=== PATIENT | female | born 2005 | race Caucasian/White ===

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

== ENCOUNTER 2025-05-10 22:27 | Emergency (ER) | payer BC, MEDICAID, SELFPAY ==
--- OUTSIDE RECORDS SUMMARY | 2019-01-18 06:42 | XMS_ITS | Continuity of Care Document ---
Author Organization [facility] [place] Address [address] [place] [address] Phone Care Team Providers Care Satellite Installation Technician Name Role Phone Unavailable Unavailable Unavailable Advance Directives Directive Yes / No Effective Date File Name No Information Encounters Encounter Description Practice Location Reason(s) For Visit Diagnoses Date Provider Providers Copied on Encounter [facility] [address], [address], tel:[phone] [facility] No Information 0201 9 No Information Referring Provider: ISMA BURDEN L, [address] [place], [address]. tel:[phone] Family History Family Member Type Diagnosis Age At Onset Problem (finding) No family history of Hy pertension Problem (finding) No family history of Pr emature CAD Problem (finding) No family history of Ar rhythmia Problem (finding) No family history of Cage dden Problem (finding) No family hist ory of Cardiomyopathy - dilated Problem (finding) No family hist ory of Cardiomyopathy - hypertrophic Problem (finding) No family history of Di abetes Mellitus Problem (finding) No family hist ory of Congenital Heart Disease Cousin Problem (finding) Marfan's Father Problem (finding) Marfan's Payers Payer name Insurance type Covered constitution party ID Authoriza tion(s) [facility] [id number] Social History Type Description Quantity Date Captured [...]
[2025-05-10 22:30] VITALS: BP 103/71; PULSE 87; RESP 16; TEMP 36.7; O2SAT 98; BMI 26.2
--- OUTSIDE RECORDS SUMMARY | 2025-05-10 22:32 | XMS_ITS | Encounter Summary ---
Author Organization [facility] Address [address] [place] [address] Care Team Providers Care Family Lawyer Name Role Phone Cary Monzon DO Primary Care Provider Encounter Details Date Type Department Care Team (Latest Contact Info) Description 08/09/2006 Outpatient Historical [facility] [address] [place] [phone] Ovidio Tompkins MD NO ADDRESS ON FILE Routine Child Health Exam (Primary Dx) Social History Tobacco Use Types Packs/Day Years Used Date Smoking Tobacco: Never Assessed Comments Unknown Sex and Gender Information Value Date Recorded Sex Assigned at Not on file Legal Sex Female 3:37 AM CLOTH CALENDER Gender Identity Not on file Sexual Orientation Not on file documented as of this encounter Plan of Treatment Not on file documented as of this encounter Visit Diagnoses Diagnosis Routine child health exam- Primary Routine infant or child health check documented in this encounter Additional Health Concerns Infection Onset Date Last Indicated Resolved Time R/O COVID-19 05/26/2020 05/26/2020 05/28/2020 2:15 AM CDT R/O COVID-19 09/17/2020 09/17/2020 09/19/2020 3:30 AM CLOTH CALENDER documented as of this encounter Care Teams Family Lawyer Relationship Specialty Start Date End Date Cary Monzon DO [address] [place] [address] PCP - General Family Practice 10/28/11 documented as of this encounter
--- OUTSIDE RECORDS SUMMARY | 2025-05-10 22:32 | XMS_ITS | Encounter Summary ---
Author Organization [facility] Address [address] [place] [address] Care Team Providers Care Investigation Lieutenant Name Role Phone NaCary bautista Primary Care Provider [phone] Encounter Details Date Type Department Care Team (Late st Contact Info) Description 2005 Inpatient Historical [facility] B[facility] Ovidio Tompkins MD NO ADDRESS ON FILE FAILURE TO THRIVE (Primary Dx) Social History Tobacco Use Types Packs/Day Years Used Date Smoking Tobacco: Never Assessed Comments Unknown Sex and Gender Information Value Date Recorded Sex Assigned at Not on file Legal Sex Female 3:37 AM BILINGUAL ADMINISTRATIVE ASSISTANT Gender Identity Not on file Sexual Orientation Not on file documented as of this encounter Plan of Treatment Not on file documented as of this encounter Procedures Procedure Name Priority Date/Time Associated Diagnosis Comments DIFFERENTIAL, MANUAL Routine 2005 2:42 PM CDT URINALYSIS MICROSCOPY ONLY Routine 2005 2:42 PM CDT CBC WITH DIFFERENTIAL Routine 2005 2:42 PM CDT URINALYSIS W/REFLEX MICROSCOPIC Routine 2005 2:42 PM CDT AST Routine 2005 2:42 PM CDT TSH Routine 2005 2:42 PM CDT T4 FREE Routine 2005 2:42 PM CDT BASIC METABOLIC PANEL Routine 2005 2:42 PM CDT documented in this encounter Results * (ABNORMAL) URINALYSIS (2005 2:42 PM CDT) COLOR UA Yellow Straw INTERFACE SYSTEM CLARITY UA Clear Clear INTERFACE SYSTEM LEUKOCYTE ESTERASE UA NEGATIVE NEGATIVE INTERFACE SYSTEM NITRITE UA NEGATIVE NEGATIVE INTERFACE SYSTEM PH UA 7.0 5.0 - 9.0 INTERFACE SYSTEM PROTEIN UA NEGATIVE NEGATIVE INTERFACE SYSTEM GLUCOSE UA NEGATIVE NEGATIVE INTERFACE SYSTEM KETONES UA NEGATIVE NEGATIVE INTERFACE SYSTEM UROBILINOGEN UA 0.2 0.2 INTE RFACE SYSTEM BILIRUBIN UA NEGATIVE NEGATIVE INTERFA CE SYSTEM BLOOD UA Trace(A) NEGATIVE INTERFACE SYSTEM SPECIFIC GRAVITY UA <=1.005(A) 1.005 - 1.030 INTERFACE SYSTEM CLINITEST NEGATIVE INTERFACE SYSTEM MICRO EXAM Yes(A) No INTERFACE SYSTEM 2005 2:42 PM CDT us Ovidio Tompkins MD URINE ORDERABLES Final Resul t Performing Organization Address [facility] Phone Number INTERFACE SYSTEM Refer to clinic/hospital department * URINALYSIS MICROSCOPY ONLY (2005 2:42 PM CDT) WBC URINE None Seen 0 - 2 INTERFACE SYSTEM RBC UA None Seen 0 - 2 INTERFACE SYSTEM HYALINE CAST None Seen 0 - 2 INTERFA CE SYSTEM 2005 2:42 PM CDT us Ovidio Tompkins MD URINE ORDERABLES Final Resul t Performing Organization Address [facility] Phone Number INTERFACE SYSTEM Refer to clinic/hospital department * T4 FREE (2005 2:42 PM CDT) T4 FREE 1.40 0.89 - 1.76 ng/dL INTERFACE SYSTEM Comment: As of 05 at 3:00 p.m. [facility] has changed the methodology for Free T4, and with this change the reference range has changed from 0.71-1.85 to 0.89-1.76 ng/dl. 2005 2:42 PM CDT Ovidio Tompkins MD CHEMISTRY ORDERABLES Final R esult Performing Organization Address [facility] Phone Number INTERFACE SYSTEM Refer to clinic/hospital department * TSH (2005 2:42 PM CDT) TSH 2.751 0.350 - 5.500 uIU/ml INTERFACE SYSTEM Comment: [facility] TSH, and with this change the reference range has changed from 0.49-4.67 to 0.35-5.5 uIU/ml. 2005 2:42 PM CDT Ovidio Tompkins MD CHEMISTRY ORDERABLES Final R esult Performing Organization Address [facility] Phone Number INTERFACE SYSTEM Refer to clinic/hospital department * (ABNORMAL) DIFFERENTIAL, MANUAL (2005 2:42 PM CDT) NEUTROPHILS, SEG 28 15 - 35 % INT ERFACE SYSTEM LYMPHOCYTES 55 41 - 71 % INTERFAC E SYSTEM Comment:FEW REACTIVE MONOCYTE 13(H) 5 - 7 % INTERFACE SYSTEM EOSINOPHILS 3 0 - 3 % INTERFAC E SYSTEM BASOPHILS 1 0 - 1 % INTERFACE SYSTEM PLATELET EST. Normal Normal INTERF JAYLON SYSTEM RBC MORPHOLOGY Abnormal(A ) Normal INTERFACE SYSTEM POIKILOCYTES 1+(A) None Seen INTERFA CE SYSTEM SMUDGE CELLS Present(A) None Seen INTERF JAYLON SYSTEM 2005 2:42 PM CDT Ovidio Tompkins MD HEMATOLOGY ORDERABLES COM Fi nal Result Performing Organization Address [facility] Phone Number INTERFACE SYSTEM Refer to clinic/hospital department * (ABNORMAL) CBC WITH DIFFERENTIAL (2005 2:42 PM CDT) WBC 18.0 5.0 - 21.0 K/ul INTERFACE SYSTEM RBC 4.83 2.70 - 5.40 Mil/ul INTERFACE SYSTEM HEMOGLOBIN 15.5(H) 10.9 - 14.7 g/dL INTERFACE SYSTEM HEMATOCRIT 42.9 36.0 - 48.0 % INTERFACE SYSTEM MCV 88.8(L) 91.0 - 111.0 Fl INTERFACE SYSTEM MCH 32.1 29.0 - 35.0 pg INTERFACE SYSTEM MCHC 36.1(H) 28.0 - 32.0 g/dL INTERFACE SYSTEM RDW 13.7 11.0 - 14.5 % INTERFACE SYSTEM PLATELETS 439 140 - 440 K/ul INTERFACE SYSTEM MPV 10.1 8.9 - 12.8 Fl INTERFACE SYSTEM 2005 2:42 PM CDT us Ovidio Tompkins MD HEMATOLOGY ORDERABLES Final Result Performing Organization Address [facility] Phone Number INTERFACE SYSTEM Refer to clinic/hospital department * (ABNORMAL) AST (2005 2:42 PM CDT) AST 46(H) 14 - 36 IU/L INTERFACE SYSTEM 2005 2:42 PM CDT us Ovidio Tompkins MD CHEMISTRY ORDERABLES Final R esult Performing Organization Address [facility] Phone Number INTERFACE SYSTEM Refer to clinic/hospital department * (ABNORMAL) BASIC METABOLIC PANEL (2005 2:42 PM CDT) GLUCOSE 107(H) 60 - 100 mg/dL INTERFACE SYSTEM BUN 8 7 - 17 mg/dL INTERFACE SYSTEM CREATININE 0.4 0.2 - 0.7 mg/dL INTERFACE SYSTEM SODIUM 138 136 - 145 mEq/L INTERFACE SYSTEM POTASSIUM 4.5 3.5 - 5.0 mEq/L INTERFACE SYSTEM CHLORIDE 106 95 - 110 mEq/L INTERFACE SYSTEM CO2 21(L) 22 - 32 mmol/l INTERFACE SYSTEM ANION GAP 16 9 - 20 mEq/L INTERFACE SYSTEM OSMOLALITY, CALCULATED 284 275 - 295 mOsm/Kg INTERFACE SYSTEM CALCIUM 9.9 8.4 - 10.5 mg/dL INTERFACE SYSTEM 2005 2:42 PM CDT us Ovidio Tompkins MD CHEMISTRY ORDERABLES Final R esult INTERFACE SYSTEM Refer to clinic/hospital department documented in this encounter Visit Diagnoses Diagnosis 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
--- OUTSIDE RECORDS SUMMARY | 2025-05-10 22:32 | XMS_ITS | Encounter Summary ---
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 This result has a conductivity equivalent to that of a NaCl solution. The Cystic Fibrosis Foundation recommends that a patient having a sweat conductivity of 50 mmol/L or greater be referred to a specialized care center for quantitative analysis of sweat chloride. Factors such as age, acute illness, state of hydration, and family history of CF must be assessed carefully by the clinician for results between 50 and 80 mmol/L. 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
--- OUTSIDE RECORDS SUMMARY | 2025-05-10 22:32 | XMS_ITS | Encounter Summary ---
Author Organization [facility] Address [address] [place] [address] Care Team Providers Care Heating Technician Name Role Phone Cary Monzon DO Primary Care Provider [phone] Encounter Details Date Type Department Care Team (Latest Contact Info) Description 2005 Outpatient Historical [facility] [address] [place] [address] Wm Barrett MD [address] [place] [phone] ESOPHAGEAL REFLUX (Primary Dx) Social History Tobacco Use Types Packs/Day Years Used Date Smoking Tobacco: Never Assessed Comments Unknown Sex and Gender Information Value Date Recorded Sex Assigned at Not on file Legal Sex Female 3:37 AM BEHAVIORAL SCIENCES DEPARTMENT CHAIR Gender Identity Not on file Sexual Orientation Not on file documented as of this encounter Plan of Treatment Not on file documented as of this encounter Visit Diagnoses Diagnosis Esophageal reflux- Primary documented in this encounter Additional Health Concerns Infection Onset Date Last Indicated Resolved Time R/O COVID-19 05/26/2020 05/26/2020 05/28/2020 2:15 AM CDT R/O COVID-19 09/17/2020 09/17/2020 09/19/2020 3:30 AM BEHAVIORAL SCIENCES DEPARTMENT CHAIR documented as of this encounter Care Teams Heating Technician Relationship Specialty Start Date End Date Cary Monzon DO [address] [place] [phone] PCP - General Family Practice 10/28/11 documented as of this encounter
--- OUTSIDE RECORDS SUMMARY | 2025-05-10 22:32 | XMS_ITS | Encounter Summary ---
Author Organization [facility] Address [address] [place] [address] Care Team Providers Care Tester Food Products Name Role Phone Cary Monzon DO Primary Care Provider Encounter Details Date Type Department Care Team (Latest Contact Info) Description 01/18/2006 Outpatient Historical [facility] Pediatrics-[facility] [address] [place] [phone] Ovidio Tompkins MD NO ADDRESS ON FILE Routine Child Health Exam (Primary Dx) Social History Tobacco Use Types Packs/Day Years Used Date Smoking Tobacco: Never Assessed Comments Unknown Sex and Gender Information Value Date Recorded Sex Assigned at Not on file Legal Sex Female 3:37 AM HOME HOSPICE RN Gender Identity Not on file Sexual Orientation [...] R/O COVID-19 09/17/2020 09/17/2020 09/19/2020 3:30 AM HOME HOSPICE RN documented as of this encounter Care Teams Tester Food Products Relationship Specialty Start Date End Date Cary Monzon DO [address] [place] [address] PCP - General Family Practice 10/28/11 documented as of this encounter
--- OUTSIDE RECORDS SUMMARY | 2025-05-10 22:32 | XMS_ITS | Encounter Summary ---
Author Organization [facility] Address [address] [place] [address] Care Team Providers Care Video Game Repair Technician Name Role Phone Cary Monzon DO Primary Care Provider Encounter Details Date Type Department Care Team (Latest Contact Info) Description 2005 Outpatient Historical [facility] Pediatrics-[facility] [place] [address] [place] [phone] Ovidio Tompkins MD NO ADDRESS ON FILE Feeding problem (Primary Dx); ESOPHAGEAL REFLUX Social History Tobacco Use Types Packs/Day Years Used Date Smoking Tobacco: Never Assessed Comments Unknown Sex and Gender Information Value Date Recorded Sex Assigned at Not on file Legal Sex Female 3:37 AM INTERNATIONAL LOGISTICS ANALYST Gender Identity Not on file Sexual Orientation Not on file documented as of this encounter Plan of Treatment Not on file documented as of this encounter Visit Diagnoses Diagnosis Feeding problem- Primary Feeding difficulties and mismanagement Esophageal reflux documented in this encounter Additional Health Concerns Infection Onset Date Last Indicated Resolved Time R/O COVID-19 05/26/2020 05/26/2020 05/28/2020 2:15 AM CDT R/O COVID-19 09/17/2020 09/17/2020 09/19/2020 3:30 AM INTERNATIONAL LOGISTICS ANALYST documented as of this encounter Care Teams Video Game Repair Technician Relationship Specialty Start Date End Date Cary Monzon DO [address] [place] [address] PCP - General Family Practice 10/28/11 documented as of this encounter
--- OUTSIDE RECORDS SUMMARY | 2025-05-10 22:32 | XMS_ITS | Encounter Summary ---
Author Organization [facility] Address [address] [place] [address] Care Team Providers Care Nocturnist Name Role Phone Cary Monzon DO Primary Care Provider Encounter Details Date Type Department Care Team (Latest Contact Info) Description 11/07/2006 Outpatient Historical 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
--- OUTSIDE RECORDS SUMMARY | 2025-05-10 22:32 | XMS_ITS | Clinical Summary ---
Author Organization [facility] Address [address] [place] [address] Care Team Providers Care Continuity Reader Name Role Phone An Cary L DO Primary Care Provider Allergies Active Allergy Reactions Criticality Noted Date Comments Adhesive Itching Low 07/18/2012 Crisaborole Rash Low 10/02/2018 Doxycycline Nausea and Vomiting Low 11/11/2019 Fish Containing Products Itching Low 07/24/2017 Hymenoptera Allergenic Extract Hives High 06/03/2015 Naproxen Itching Low 08/28/2017 Shellfish Containing Products Hives,Itching High 09/30/2011 Spinach Hives High 06/03/2015 Unclassified Drug Hives High 01/02/2017 ADHD medication Medications diphenhydrAMINE (BENADRYL) 25 mg tablet Take 25 mg by mouth every 6 hours as needed for Allergies. Active EPINEPHrine (EPIPEN) 0.3 mg/0.3 mL Auto-InjectorIndic ations:Allergic reaction to bee sting Inject 0.3 mL (0.3 mg) by intramuscular injection 1 time daily as needed for Anaphylaxis. 1 Package 1 05/06/20 19 Active triamcinolone acetonide (KENALOG) 0.5 % CreamIndications:I ntrinsic eczema Apply to affected area 2 times daily. 30 Gram 5 10/14/19 20 Active ibuprofen (MOTRIN) 400 mg tablet Take 1 Tablet (400 mg) by mouth every 6 hours as needed for Pain. 30 Tablet 11/11/19 20 Active busPIRone (BUSPAR) 5 mg tablet TAKE 1 TABLET BY MOUTH EVERY MORNING, THEN 1 TABLET BY MOUTH AT 11:50 AM, AND 1 TABLET BY MOUTH EVERY EVENING. 90 Tablet 6 01/13/20 20 Active melatonin 3 mg TabletIndications: Primary insomnia Take by mouth nightly as needed for Insomnia. Active loperamide (IMODIUM) 2 mg capsuleIndications :Acute diarrhea Take 1 Capsule (2 mg) by mouth 2 times daily as needed for Diarrhea/Loose Stools. 30 Capsule 07/23/20 20 Active polyethylene glycol 3350 (MIRALAX) 17 gram/dose PowderIndications: Constipation, unspecified constipation type Take 1 SCOOP (17 Grams) by mouth daily. Dissolve in 8 ounces of fluid and drink entire liquid 527 Gram 2 09/22/19 21 Active ARIPiprazole (ABILIFY) 10 mg tabletIndications: Bipolar affective disorder, currently depressed, moderate (CMS/HCC) Take 1 Tablet (10 mg) by mouth daily. 30 Tablet 5 10/14/19 21 Active mirtazapine (REMERON) 7.5 mg tabletIndications: Primary insomnia TAKE 1 TABLET(7.5 MG) BY MOUTH DAILY AT BEDTIME 30 Tablet 6 11/10/19 21 Active promethazine-codei ne (PHENERGAN WITH CODEINE) 6.25-10 mg/5 mL solutionIndication s:Cough Take 2.5 mL by mouth every 4 hours as needed for Congestion. 75 mL 12/12/19 21 Active cetirizine (ZyrTEC) 10 mg tablet TAKE 1 TABLET BY MOUTH DAILY. 30 Tablet 11 12/17/19 21 Active famotidine (PEPCID) 40 mg tablet Take 1 Tablet (40 mg) by mouth 2 times daily. 60 Tablet 2 01/07/20 21 Active omeprazole (PriLOSEC) 40 mg Capsule, Delayed Release(E.C.)Indic ations:Esophagitis determined by endoscopy,Gastriti s, presence of bleeding unspecified, unspecified chronicity, unspecified gastritis type,Gastroparesis Take 1 Capsule (40 mg) by mouth daily. 30 Capsule 1 01/13/20 21 Active nystatin (MYCOSTATIN) 100,000 unit/gram CreamIndications:T inea corporis Apply to affected area 2 times daily. 60 Gram 6 01/15/20 21 Active benztropine (COGENTIN) 1 mg tabletIndications: Tics, drug-induced Take 1 Tablet (1 mg) by mouth 2 times daily. 60 Tablet 6 01/15/20 21 Active erythromycin ethylsuccinate (E.E.S. Granules) 200 mg/5 mL suspensionIndicati ons:Gastroparesis Take 6.25 mL (250 mg) by mouth 3 times daily before meals. 563 mL 01/19/20 21 Active sertraline (ZOLOFT) 50 mg tablet TAKE 1 AND 1/2 TABLETS(75 MG) BY MOUTH DAILY 135 Tablet 4 01/31/20 21 Active promethazine (PHENERGAN) 25 mg tabletIndications: Nausea TAKE 1 TABLET(25 MG) BY MOUTH EVERY 6 HOURS NEEDED FOR NAUSEA OR VOMITING 30 Tablet 1 02/02/20 21 Active Griseofulvin Microsize 500 mg TabletIndications: Tinea corporis Take 1 Tablet by mouth daily. 14 Tablet 1 02/02/20 21 Active silver sulfADIAZINE (SILVADENE) 1 % CreamIndications:P artial thickness burn of right thigh, initial encounter Apply to affected area daily. 60 Gram 3 02/02/20 21 Active ProAir HFA 90 mcg/actuation inhalerIndications :Mild intermittent asthma, unspecified whether complicated INHALE 2 PUFFS BY MOUTH EVERY 6 HOURS NEEDED FOR SHORTNESS OF BREATH 8.5 Gram 6 02/09/20 21 Active loratadine (CLARITIN) 10 mg tabletIndications: Chronic seasonal allergic rhinitis TAKE 1 TABLET(10 MG) BY MOUTH DAILY 30 Tablet 6 02/19/20 21 Active Active Problems Problem Noted Date Diagnosed Date Bipolar affective disorder, currently depressed, moderate 05/09/2020 Primary insomnia 05/09/2020 Gastroesophageal reflux disease without esophagi tis 05/09/2020 Generalized anxiety disorder 05/09/2020 Chronic seasonal allergic rhinitis 05/09/2020 Anaphylactic reaction to wasp sting 05/09/2020 Bipolar disorder, in full re mission, most recent episode mixed 01/22/2020 Post-nasal drip 08/22/2016 Eczema 06/03/2015 Immunizations Immunization Administration Dates Next Due (ADACEL/BOOSTRIX)(10 YR UP) TDAP VACCINE, 0.5ML, IM 03/09/2017,12/19/2014 (GARDASIL)(9-45 YRS) HUMAN PAPILLOMAVIRUS VACCINE, TYPES 6, 11, 16, 18, QUADRIVALENT (4VHPV), 3 DOSE, IM 08/01/2018,04/16/2018 (HAVRIX/VAQTA)(12 MO-18 YRS) HEPATITIS A VACCINE 0.5 ML PED/ADOL 2 DOSE, IM 08/09/2006,01/18/2006 (IPOL)(6 WKS AND UP) POLIOVI MALINDA VACCINE, INACTIVATED (IPV), 3 DOSE, SUBCUT OR IM 12/19/2014 (M-M-R II/PRIORIX)(12 MO UP) MEASLES, MUMPS AND RUBELLA VIRUS VACCINE, 0.5 ML IM/SUBCUT 04/18/2006 (MENACTRA)(9 MO-55 YR) MENIN GOCOCCAL POLYSACCHARIDE A, C, Y AND W-135 DIPTHERIA TOXOID CONJUGATE VACCINE, (PF), 0.5ML, IM 02/11/2019 (PEDIARIX)(6 WKS-6 YRS) DIPT HERIA, TETANUS TOXOIDS, ACELLULAR PERTUSSIS, HEPATITIS B, AND INACTIVATED POLIOVIRUS VACCINE (ILYU-BHQY-RFR), 0.5ML, IM 2005,2005,2005 (VARIVAX)(12 MOS UP)VARICELL A VIRUS VACCINE (PF) 0.5 ML, SUB CUT 04/18/2006 Dt Dtp Dtap Vaccine 04/18/2006, 5,2005,04/06 HIB Vaccine 01/18/2006, 5,2005,04/06 HIB, Unspecified Formulation 01/18/2006, 2005,2005,04/06 Hepatitis A Vaccine 08/09/2006,01/18/2006 Hepatitis B Vaccine 2005,2005,2004 IPV/OPV 2005,2005,2005 Influenza Seasonal Unspecifi ed Formulation IM 08/09/2006,2005 Influenza Vaccine Split 3+ Yrs IM 06/08/2018 Influenza Vaccine Split 3+ Yrs PF IM 08/09/2006, 2005 Meningococcal Polysaccharide Vaccine SQ 02/11/2019 Pneumococcal 7-valent conjug ate vaccine IM 01/18/2006,2005,2005,04/06 Family History Medical History Relation Name Comments Healthy Father Healthy Mother Relation Name Status Comments Father Alive Mother Alive Social History Tobacco Use Types Packs/Day Years Used Date Smoking Tobacco: Passive Smo ke Exposure - Never Smoker Smokeless Tobacco: Never Tobacco Cessation:Counseling Given: Yes Alcohol Use Standard Drinks/Week Comments No 0 (1 standard drink = 0.6 oz pur e alcohol) Comments No Sex and Gender Information Value Date Recorded Sex Assigned at Not on file Legal Sex 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 Gender Identity Not on file Sexual Orientation Not on file Occupation Industry Job Start Date Job End Date Not on file Not on file Not on file Not on file Not on file Not on file Not on file Not on file Last Filed Vital Signs Vital Sign Reading Time Taken Comments Blood Pressure 100/62 02/01/2021 10:20 AM CDT Pulse 87 02/01/2021 10:20 AM CDT Temperature 36.8 C (98.3 F) 02/01/2021 10:20 AM CDT Respiratory Rate 18 02/01/2021 10:20 AM CDT Oxygen Saturation 94% 02/01/2021 10:20 AM CDT Inhaled Oxygen Concentration - - Weight 53.5 kg (118 lb) 02/01/2021 10:20 AM CDT Height 161.3 cm (5' 3.5 ) 02/01/2021 10:20 AM CD T Body Mass Index 20.57 02/01/2021 10:20 AM CDT Plan of Treatment Health Maintenance Due Date Last Done Comments CHLAMYDIA SCREENING (ANNUAL) 11-24 YEARS 01/17/2016 HPV VACCINES (3 - 2-dose series) 10/24/2018 08/01/20 18, 04/16/2018 INFLUENZA VACCINE (#1) 2025 8, 08/09/2006, 08/09/2006, Additional history exists DTAP/TDAP/TD VACCINES (7 - T d or Tdap) 03/09/2027 03/09/2017, 12/19/2014, 04/18/2006, Additional history exists HEPATITIS B VACCINES Completed 2005, 2005, 2005, Additional history exists Medical Devices Implanted Type Area Master Police Detective Device Identifier Shelf Expiration Date Model / Serial / Lot Capsule Aldridge Ph Test s-0635 - [id number] Implanted:Qty: 1 on 10/22/2020 by Alden Price MD at [facility] Other N/A: Esophagus [employer] 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 GIVEN 03/13/2022 [id number] / [id number] Care Teams Continuity Reader Relationship Specialty Start Date End Date Cary Monzon DO [address] [place] [address] PCP - General Family Practice 10/28/11
--- OUTSIDE RECORDS SUMMARY | 2025-05-10 22:32 | XMS_ITS | Encounter Summary ---
Author Organization [facility] Address [address] [place] [address] Care Team Providers Care Academic Support Coordinator Name Role Phone Cary Monzon DO Primary Care Provider Encounter Details Date Type Department Care Team (Latest Contact Info) Description 2005 Outpatient Historical [facility] [address] [place] [phone] Ovidio Tompkins MD NO ADDRESS ON FILE Routine child health exam (Primary Dx); ESOPHAGEAL REFLUX Social History Tobacco Use Types Packs/Day Years Used Date Smoking Tobacco: Never Assessed Comments Unknown Sex and Gender Information Value Date Recorded Sex Assigned at Not on file Legal Sex Female 3:37 AM MUSEUM ARCHIVIST Gender Identity Not on file Sexual Orientation Not on file documented as of this encounter Plan of Treatment Not on file documented as of this encounter Visit Diagnoses Diagnosis Routine child health exam- Primary Routine infant or child health check Esophageal reflux documented in this encounter Additional Health Concerns Infection Onset Date Last Indicated Resolved Time R/O COVID-19 05/26/2020 05/26/2020 05/28/2020 2:15 AM CDT R/O COVID-19 09/17/2020 09/17/2020 09/19/2020 3:30 AM MUSEUM ARCHIVIST documented as of this encounter Care Teams Academic Support Coordinator Relationship Specialty Start Date End Date Cary Monzon DO [address] [place] [address] PCP - General Family Practice 10/28/11 documented as of this encounter
--- OUTSIDE RECORDS SUMMARY | 2025-05-10 22:32 | XMS_ITS | Clinical Summary ---
Author Organization [facility] Address [address] [facility] Attn: Epic Prelude ADT ANDREW CARRION [address] Care Team Providers Care Lumber Sales Supervisor Name Role Phone Cary Monzon DO Primary Care Provider Allergies Active Allergy Reactions Criticality Noted Date Comments Adhesive Itching Low 07/18/2012 Alpha-Gal (Faddtjhcl-Hjwyw-7,3-Galact ose) Hives High 06/17/2022 Benztropine Unknown 02/13/2023 Generic Cogentin--02/13/23 Pharmacy reported patient could not take this due to reaction--will verify at her next appt Crisaborole Rash Low 10/02/2018 Doxycycline Nausea and Vomiting Low 11/11/2019 Fish Containing Products Itching Low 07/24/2017 Hymenoptera Allergenic Extract Hives High 06/03/2015 Lactose Diarrhea Low 06/16/2021 Methylprednisolone Sodium Succ Hives High 02/14/2024 Naproxen Itching Low 08/28/2017 Olanzapine Other (See Comments) 11/25/2022 Worsened depression Shellfish Containing Products Hives,Itching High 09/30/2011 Spinach Hives High 06/03/2015 Unclassified Drug Hives High 01/02/2017 ADHD medication Medications multivitamin (DAILY-ANTHONY) tablet Take 1 Tablet by mouth daily. Active benzonatate (TESSALON) 200 mg capsule Take 1 Capsule (200 mg) by mouth 3 times daily as needed for Cough. 30 Capsule 024 Active sennosides-docu sate sodium (Senexon-S) 8.6-50 mg tabletIndicatio ns:Irritable bowel syndrome with constipation Take 1 Tablet by mouth 2 times daily. 024 Active mupirocin (BACTROBAN) 2 % Ointment Apply to affected area daily. 60 Gram 6 024 Active lactulose (ENULOSE) 10 gram/15 mL 10 gram/15 mL solutionIndicat ions:Irritable bowel syndrome with constipation Take 7.5 mL by mouth 1 time daily as needed for Constipation. 1000 mL 6 024 Active albuterol sulfate HFA 90 mcg/actuation aerosol inhalerIndicati ons:Mild intermittent asthma without complication INHALE 2 PUFFS BY MOUTH EVERY SIX HOURS NEEDED FOR SHORTNESS OF BREATH OR WHEEZING 8.5 Gram 024 Active EPINEPHrine (EPIPEN) 0.3 mg/0.3 mL Auto-Injector Inject 0.3 mL (0.3 mg) by intramuscular injection 1 time daily as needed for Anaphylaxis. 2 Each 025 Active hydrOXYzine HCL (ATARAX) 25 mg tabletIndicatio ns:Itching TAKE ONE TABLET BY MOUTH THREE TIMES DAILY as needed for ITCHING 30 Tablet 1 025 Active famotidine (PEPCID) 20 mg tabletIndicatio ns:Peptic ulcer disease TAKE ONE TABLET BY MOUTH TWICE DAILY 180 Tablet 3 025 Active paliperidone palmitate, 3-month, (Invega Trinza) Syringe IM injection Inject 410 mg by intramuscular injection every 90 days. 1 Each 4 025 Active betamethasone dipropionate (DIPROSONE) 0.05 % Cream Apply to affected area 2 times daily. 60 Gram 6 025 Active levocetirizine (Xyzal) 5 mg tablet Take 1 Tablet (5 mg) by mouth late in the day. 90 Tablet 4 025 Active loratadine (CLARITIN) 10 mg tabletIndicatio ns:Chronic seasonal allergic rhinitis Take 1 Tablet (10 mg) by mouth daily. 90 Tablet 3 025 Active promethazine (PHENERGAN) 25 mg tablet TAKE ONE TABLET BY MOUTH TWICE DAILY as needed for nausea/emesis 60 Tablet 6 025 Active triamcinolone acetonide (KENALOG) 0.5 % Cream Apply to affected area 2 times daily. 60 Gram 6 025 Active PNV,calcium 26-jiwc-ijmxa acid (PREPLUS) 27 mg iron- 1 mg TabletIndicatio ns: confirmed by positive urine test Take 1 Tablet by mouth daily. 30 Tablet 4 025 Active cloNIDine HCL (CATAPRES) 0.1 mg tabletIndicatio ns:Generalized anxiety disorder Take 1 Tablet (0.1 mg) by mouth 3 times daily as needed for Other (See Comment) (anxiety). TAKE ONE TABLET BY MOUTH THREE TIMES DAILY NEEDED FOR ANXIETY 60 Tablet 1 025 Active methocarbamoL (ROBAXIN) 500 mg tablet Take 1 Tablet (500 mg) by mouth 3 times daily as needed for Spasm. TAKE ONE TABLET BY MOUTH EVERY EIGHT hours NEEDED FOR spasm. 90 Tablet 1 025 Active cloNIDine HCL (CATAPRES) 0.1 mg tabletIndicatio ns:Generalized anxiety disorder TAKE ONE TABLET BY MOUTH THREE TIMES DAILY NEEDED FOR ANXIETY. 60 Tablet 2 025 2024 Discontinued methocarbamoL (ROBAXIN) 500 mg tablet TAKE ONE TABLET BY MOUTH EVERY EIGHT hours NEEDED FOR spasm. 90 Tablet 1 025 2024 Discontinued methocarbamoL (ROBAXIN) 500 mg tablet TAKE ONE TABLET BY MOUTH EVERY EIGHT hours NEEDED FOR spasm. 90 Tablet 1 025 2024 Discontinued(R eorder) cloNIDine HCL (CATAPRES) 0.1 mg tabletIndicatio ns:Generalized anxiety disorder TAKE ONE TABLET BY MOUTH THREE TIMES DAILY NEEDED FOR ANXIETY 60 Tablet 1 025 2024 Discontinued(R eorder) Active Problems Problem Noted Date Diagnosed Date Ear canal abrasion, right, initial encounter Angioedema with urticaria 02/14/2024 Allergic reaction 02/14/2024 Irritable bowel syndrome wit h both constipation and diarrhea 08/20/2023 Bipolar disorder, in full re mission, most recent episode depressed 06/15/2023 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 01/21/2023 Chronic pain of left ankle 01/21/2023 Panic attacks 01/21/2023 Dizziness 11/25/2022 Abdominal pain, chronic, right upper quadrant Rectal bleeding 11/25/2022 Second hand tobacco smoke exposure 06/29/2021 Gastroesophageal reflux disease without esophagi tis 05/09/2020 Chronic seasonal allergic rhinitis 05/09/2020 Bipolar affective disorder, currently depressed, moderate 05/09/2020 Generalized anxiety disorder 05/09/2020 Anaphylactic reaction to wasp sting 05/09/2020 Primary insomnia 05/09/2020 Bipolar disorder, in full re mission, most recent episode mixed 01/22/2020 Post-nasal drip 08/22/2016 Eczema 06/03/2015 Comments Yes Encounters Date Type Department Care Team Description 05/07/2025 External Device Data ST[facility] ABSTRACTION Provider, Abstract 05/06/2025 External Device Data [facility] ABSTRACTION Provider, Abstract 05/06/[address] [facility] [address] [place] [address] Cary Monzon DO Generalized anxiety disorder 04/28/2025 1:40 PM CDT Office Visit [facility] [address] [place] [address] Chavez, December, NURSE PRACTITIONER MANAGER Missed period (Primary Dx); confirmed by positive urine test 04/02/[address] [facility] [address] [place] [address] Cary Monzon DO Left knee injury, initial encounter (Primary Dx) 03/26/2025 External Device Data STL ABSTRACTION Provider, Abstract 03/18/2025 External Device Data ST[facility] ABSTRACTION Provider, Abstract 03/13/2025 8:40 AM CDT Office Visit [facility] [address] [place] [facility] [address] Cary Monzon DO Generalized anxiety disorder (Primary Dx); Panic attacks; Gastroesophageal reflux disease without esophagitis; 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; Irritable bowel syndrome with both constipation and diarrhea; Bipolar disorder, in full remission, most recent episode depressed 03/03/2025 11:40 AM CDT Office Visit [facility] [address] [place] [address] Chavez, December, NURSE PRACTITIONER MANAGER Nausea and vomiting, unspecified vomiting type (Primary Dx); Sore throat; Acute cough; Rash 03/03/[address] [facility] [address] [place] [address] Cary Monzon DO 02/10/[address] [facility] [address] [place] [address] Cary Monzon, from Last 3 Months Immunizations Immunization Administration Dates Next Due (ADACEL/BOOSTRIX)(10 YR UP) TDAP VACCINE, 0.5ML, IM 04/12/2023,03/09/2017,12/19/2014 (GARDASIL)(9-45 YRS) HUMAN PAPILLOMAVIRUS VACCINE, TYPES 6, 11, 16, 18, QUADRIVALENT (4VHPV), 3 DOSE, IM 08/01/2018,04/16/2018 (HAVRIX/VAQTA)(12 MO-18 YRS) HEPATITIS A VACCINE 0.5 ML PED/ADOL 2 DOSE, IM 08/09/2006,01/18/2006 (INFANRIX)(6 WKS-6 YRS) DIPT HERIA, TETANUS TOXOIDS, AND ACCELLULAR PERTUSSIS VACCINE (DTAP), 0.5 ML IM 04/18/2006,2005,2005,04/06 (IPOL)(6 WKS AND UP) POLIOVI MALINDA VACCINE, INACTIVATED (IPV), 3 DOSE, SUBCUT OR IM 12/19/2014,2005,2005,04/06 (M-M-R II/PRIORIX)(12 MO UP) MEASLES, MUMPS AND RUBELLA VIRUS VACCINE, 0.5 ML IM/SUBCUT 04/18/2006 (MENACTRA)(9 MO-55 YR) MENIN GOCOCCAL POLYSACCHARIDE A, C, Y AND W-135 DIPTHERIA TOXOID CONJUGATE VACCINE, (PF), 0.5ML, IM 02/11/2019 (MENQUADFI)(2 YRS UP) MENING OCOCCAL POLYSACCHARIDE VACCINE A,C,Y,W-135, TT CONJUGATE (PF) 10 MCG/0.5 ML IM SOLUTION 04/12/2023 (PEDIARIX)(6 WKS-6 YRS) DIPT HERIA, TETANUS TOXOIDS, ACELLULAR PERTUSSIS, HEPATITIS B, AND INACTIVATED POLIOVIRUS VACCINE (BYPW-WRIT-RDB), 0.5ML, IM 04/18/2006,2005,2005,04/06 (VARIVAX)(12 MOS UP)VARICELL A VIRUS VACCINE (PF) 0.5 ML, SUB CUT 04/18/2006 Dt Dtp Dtap Vaccine 04/18/2006, 5,2005,04/06 HIB Vaccine 01/18/2006, 5,2005,04/06 HIB, Unspecified Formulation 01/18/2006, 2005,2005,04/06 Hemophilus influenza b vacci ne (Hib), HbOC conjugate (4 dose schedule), for intramuscular use 01/18/2006,2005,2005,04/06 Hepatitis A Vaccine 08/09/2006,01/18/2006 Hepatitis B Vaccine 2005,2005,2004 INFLUENZA VACCINE QUADRIVALE NT 3 YR UP PF IM 08/09/2006,2005 IPV/OPV 2005,2005,2005 Influenza Seasonal Unspecifi ed Formulation IM 08/09/2006,2005 Influenza Vaccine Quad Split 3+ Yrs Im 8 Influenza Vaccine Split 3+ Yrs IM 06/08/2018 Influenza Vaccine Split 3+ Yrs PF IM 08/09/2006, 2005 Influenza Vaccine Tri Split 4+ Im 06/08/2018,,2005 Influenza Vaccine Tri Split 4+ Pf Im 08/09/2006, 2005 MMRV Vaccine SQ VFC 12/19/2014,04/18/2006 Meningococcal Polysaccharide Vaccine SQ 02/11/2019 Pneumococcal 7-valent conjug ate vaccine IM 01/18/2006,2005,2005,04/06 Family History Medical History Relation Name Comments Healthy Father Healthy Mother Relation Name Status Comments Father Alive Mother Alive Social History Tobacco Use Types Packs/Day Years Used Date Smoking Tobacco: Never Passive Smoke Exposure: Yes Smokeless Tobacco: Never Tobacco Cessation:Counseling Given: No Alcohol Use Standard Drinks/Week Comments No 0 (1 standard drink = 0.6 oz pur e alcohol) Feeling Safe Answer Date Recorded Are you in a relationship wi th someone who hurts you emotionally and/or physically? No 07/08/2024 Comments Yes Sex and Gender Information Value Date Recorded Sex Assigned at Not on file Legal Sex Female 10:02 AM PLANNING OFFICIAL Gender Identity Not on file Sexual Orientation Not on file Last Filed Vital Signs Vital Sign Reading Time Taken Comments Blood Pressure 104/68 04/28/2025 1:35 PM CDT Pulse 86 04/28/2025 1:35 PM CDT Temperature 36.8 C (98.2 F) 04/28/2025 1:35 PM CDT Respiratory Rate 20 04/28/2025 1:35 PM CDT Oxygen Saturation 98% 04/28/2025 1:35 PM CDT Inhaled Oxygen Concentration - - Weight 69.4 kg (153 lb) 04/28/2025 1:35 PM CDT Height 160 cm (5' 3 ) 04/28/2025 1:35 PM CDT Body Mass Index 27.1 04/28/2025 1:35 PM CDT Plan of Treatment Upcoming Encounters Date Type Department Care Team (Late st Contact Info) Description 05/22/2025 10:10 AM CDT Office Visit [facility] [address] [place] [phone] Vicki Maya PA [address] [place] [address] 06/12/2025 8:00 AM CDT Office Visit [facility] [place] [address] [place] [phone] Chavez, December, NURSE PRACTITIONER MANAGER [address] [facility] [place] [phone] 09/24/2025 8:40 AM PLANNING OFFICIAL Office Visit [facility] [address] [place] [facility] [phone] Cary Monzon, DO [address] [facility] [place] [phone] Health Maintenance Due Date Last Done Comments CHLAMYDIA SCREENING (ANNUAL) 11-24 YEARS 01/17/2016 HPV VACCINES (3 - 2-dose series) 10/24/2018 08/01/20 18, 04/16/2018 Preventative Visit-Managed Medicaid 04/13/2024 04/12/2023, 04/16/2018 INFLUENZA VACCINE (#1) 2025 , 06/08/2018, 06/08/2018, Additional history exists DTAP/TDAP/TD VACCINES (8 - T d or Tdap) 04/12/2033 04/12/2023, 03/09/2017, 12/19/2014, Additional history exists RSV VACCINE (60+ or ) (1 - 1-dose 75+ series) 01/17/2080 HEPATITIS B VACCINES Completed 04/18/2006, 2005, 2005, Additional history exists Medical Devices Implanted Type Area Pastry Cook Helper Device Identifier Shelf Expiration Date Model / Serial / Lot Capsule Aldridge Ph Test s-0635 - [id number] Implanted:Qty : 1 on 10/22/2020 by Alden Price MD Other N/A: 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 03/13/2022 S-[id number] / / [id number] Procedures Procedure Name Priority Date/Time Associated Diagnosis Comments POC , URINE Routine 04/28/2025 1:44 PM CDT Missed period POC RAPID STREP A ANTIGEN Routine 03/03/2025 12:10 PM CDT Sore throat from Last 3 Months Results * (ABNORMAL) POC , URINE (04/28/2025 1:44 PM CDT) Pathologist [facility] HCG QUAL URINE POC Positive(A ) Negative, Indeterminate [facility] INTERNAL KIT QC POC [place] [facility] KIT LOT NUMBER POC [id number] [facility] KIT EXP DATE POC [id number] [facility] Urine 04/28/2025 1:44 PM CDT december NURSE PRACTITIONER MANAGER POINT OF CARE TESTING Final Resu lt Performing Organization Address City/[facility]/ZIP Co de Phone Number [facility] CLIA# [id number] [address] [place] [address] * POC RAPID STREP A ANTIGEN (03/03/2025 12:10 PM CDT) [facility] RAPID STREP POC Negative Negative, Indeterminate [facility] INTERNAL KIT QC POC [place] [facility] KIT LOT NUMBER POC [id number] [facility] KIT EXP DATE POC [id number] [facility] READ METHOD POC Visual [facility] Upper Respiratory SPECIMEN FROM THROAT / Unknown 03/03/2025 12:10 PM CDT december NURSE PRACTITIONER MANAGER POINT OF CARE TESTING Final Resu lt [facility] CLIA# [id number] [facility] [place] [address] from Last [address] [place] [address] MEDICAID [facility] MEDICAID [facility] MEDICAID Care Teams Lumber Sales Supervisor Relationship Specialty Start Date End Date Cary Monzon DO [address] [place] [phone] PCP - General Family Practice 10/28/11
--- OUTSIDE RECORDS SUMMARY | 2025-05-10 22:32 | XMS_ITS | Encounter Summary ---
Author Organization [facility] Address [address] [place] [address] Care Team Providers Care Transportation Dispatch Manager Name Role Phone Na Cary L DO Primary Care Provider [phone] Encounter Details Date Type Department Care Team (Latest Contact Info) Description 2005 Outpatient Historical [facility] [address] [place] [address] Wm Barrett MD [address] [place] [phone] REFLUX ESOPHAGITIS (Primary Dx) Social History Tobacco Use Types Packs/Day Years Used Date Smoking Tobacco: Never Assessed Comments Unknown Sex and Gender Information Value Date Recorded Sex Assigned at Not on file Legal Sex Female 3:37 AM CHILD CARE DIRECTOR Gender Identity Not on file Sexual Orientation Not on file documented as of this encounter Plan of Treatment Not on file documented as of this encounter Visit Diagnoses Diagnosis Reflux esophagitis- Primary documented in this encounter Additional Health Concerns Infection Onset Date Last Indicated Resolved Time R/O COVID-19 05/26/2020 05/26/2020 05/28/2020 2:15 AM CDT R/O COVID-19 09/17/2020 09/17/2020 09/19/2020 3:30 AM CHILD CARE DIRECTOR documented as of this encounter Care Teams Transportation Dispatch Manager Relationship Specialty Start Date End Date Cary Monzon DO [address] [place] [phone] PCP - General Family Practice 10/28/11 documented as of this encounter
--- OUTSIDE RECORDS SUMMARY | 2025-05-10 22:32 | XMS_ITS | Encounter Summary ---
Author Organization [facility] Address [address] [place] [address] Care Team Providers Care Personnel Security Specialist Name Role Phone Cary Monzon Primary Care Provider [phone] Encounter Details Date Type Department Care Team (Late st Contact Info) Description 05/06/2025 External Device Data [place] ABSTRACTION Provider, Abstract NO ADDRESS ON FILE Social History Tobacco Use Types Packs/Day Years Used Date Smoking Tobacco: Never Passive Smoke Exposure: Yes Smokeless Tobacco: Never Alcohol Use Standard Drinks/Week Comments No 0 (1 standard drink = 0.6 oz pur e alcohol) Feeling Safe Answer Date Recorded Are you in a relationship wi th someone who hurts you emotionally and/or physically? No 07/08/2024 Comments Yes Sex and Gender Information Value Date Recorded Sex Assigned at Not on file Legal Sex Female 10:02 AM MEAT CLERK Gender Identity Not on file Sexual Orientation Not on file documented as of this encounter Plan of Treatment Upcoming Encounters Date Type Department Care Team (Late st Contact Info) Description 05/22/2025 10:10 AM CDT Office Visit [facility] [address] [place] [phone] Vicki Maya PA [address] [place] [phone] 06/12/2025 8:00 AM CDT Office Visit [facility] [address] [place] [phone] December, BEHAVIORAL HEALTH TECHNICIAN [address] [place] [phone] 09/24/2025 8:40 AM MEAT CLERK Office Visit [facility] [address] [place] [phone] Cary Monzon DO [address] [place] [phone] documented as of this encounter Visit Diagnoses Not on filedocumented in this encounter Care Teams Personnel Security Specialist Relationship Specialty Start Date End Date Cary Monzon DO [address] [place] [address] PCP - General Family Practice 10/28/11 documented as of this encounter
--- OUTSIDE RECORDS SUMMARY | 2025-05-10 22:32 | XMS_ITS | Encounter Summary ---
Author Organization [facility] Address [address] [place] [address] Care Team Providers Care Internet Webmaster Name Role Phone Cary Monzon DO Primary Care Provider Encounter Details Date Type Department Care Team (Latest Contact Info) Description 2005 Outpatient Historical [facility] [address] [place] [phone] Ovidio Tompkins MD NO ADDRESS ON FILE UNSPECIFIED VIRAL INFECTION (Primary Dx); IMPACTED CERUMEN Social History Tobacco Use Types Packs/Day Years Used Date Smoking Tobacco: Never Assessed Comments Unknown Sex and Gender Information Value Date Recorded Sex Assigned at Not on file Legal Sex Female 3:37 AM RESIDENCE LEASING AGENT Gender Identity Not on file Sexual Orientation Not on file documented as of this encounter Plan of Treatment Not on file documented as of this encounter Visit Diagnoses Diagnosis Unspecified viral infection, in conditions classified elsewhere and of unspecified site- Primary Impacted cerumen documented in this encounter Additional Health Concerns Infection Onset Date Last Indicated Resolved Time R/O COVID-19 05/26/2020 05/26/2020 05/28/2020 2:15 AM CDT R/O COVID-19 09/17/2020 09/17/2020 09/19/2020 3:30 AM RESIDENCE LEASING AGENT documented as of this encounter Care Teams Internet Webmaster Relationship Specialty Start Date End Date Cary Monzon DO [address] [place] [address] PCP - General Family Practice 10/28/11 documented as of this encounter
--- OUTSIDE RECORDS SUMMARY | 2025-05-10 22:32 | XMS_ITS | Encounter Summary ---
Author Organization [facility] Address [address] [place] [address] Care Team Providers Care Mica Washer Gluer Name Role Phone Cary Monzon DO Primary Care Provider Encounter Details Date Type Department Care Team (Latest Contact Info) Description 2005 Outpatient Historical [facility] [place] [address] [place] [phone] Ovidio Tompkins MD NO ADDRESS ON FILE Routine child health exam (Primary Dx); ESOPHAGEAL REFLUX Social History Tobacco Use Types Packs/Day Years Used Date Smoking Tobacco: Never Assessed Comments Unknown Sex and Gender Information Value Date Recorded Sex Assigned at Not on file Legal Sex Female 3:37 AM LINE CLOSER Gender Identity Not on file Sexual Orientation [...] R/O COVID-19 09/17/2020 09/17/2020 09/19/2020 3:30 AM LINE CLOSER documented as of this encounter Care Teams Mica Washer Gluer Relationship Specialty Start Date End Date Cary Monzon DO [address] [place] [address] PCP - General Family Practice 10/28/11 documented as of this encounter
--- OUTSIDE RECORDS SUMMARY | 2025-05-10 22:32 | XMS_ITS | Encounter Summary ---
Author Organization [facility] Address [address] [place] [address] Care Team Providers Care Youth Court Judge Name Role Phone Cary Monzon DO Primary Care Provider Encounter Details Date Type Department Care Team (Latest Contact Info) Description 2005 Outpatient Historical [facility] [address] [place] [address] Wm Barrett MD [address] [place] [phone] ESOPHAGEAL REFLUX (Primary Dx) Social History Tobacco Use Types Packs/Day Years Used Date Smoking Tobacco: Never Assessed Comments Unknown Sex and Gender Information Value Date Recorded Sex Assigned at Not on file Legal Sex Female 3:37 AM DISBURSING OFFICER Gender Identity Not on file Sexual Orientation Not on file documented as of this encounter Plan of Treatment Not on file documented as of this encounter Visit Diagnoses Diagnosis Esophageal reflux- Primary documented in this encounter Additional Health Concerns Infection Onset Date Last Indicated Resolved Time R/O COVID-19 05/26/2020 05/26/2020 05/28/2020 2:15 AM CDT R/O COVID-19 09/17/2020 09/17/2020 09/19/2020 3:30 AM DISBURSING OFFICER documented as of this encounter Care Teams Youth Court Judge Relationship Specialty Start Date End Date Cary Monzon DO [address] [place] [phone] PCP - General Family Practice 10/28/11 documented as of this encounter
--- OUTSIDE RECORDS SUMMARY | 2025-05-10 22:32 | XMS_ITS | Encounter Summary ---
Author Organization [facility] Address [address] [place] [address] Care Team Providers Care Finish Production Manager Name Role Phone Cary Monzon DO Primary Care Provider [phone] Encounter Details Date Type Department Care Team (Latest Contact Info) Description 01/24/2006 Outpatient Historical [facility] [address] [place] [phone] Ovidio Tompkins MD NO ADDRESS ON FILE Unspecified Anemia (Primary Dx) Social History Tobacco Use Types Packs/Day Years Used Date Smoking Tobacco: Never Assessed Comments Unknown Sex and Gender Information Value Date Recorded Sex Assigned at Not on file Legal Sex Female 3:37 AM FARM CONTRACTOR Gender Identity Not on file Sexual Orientation Not on file documented as of this encounter Plan of Treatment Not on file documented as of this encounter Visit Diagnoses Diagnosis Anemia, unspecified- Primary documented in this encounter Additional Health Concerns Infection Onset Date Last Indicated Resolved Time R/O COVID-19 05/26/2020 05/26/2020 05/28/2020 2:15 AM CDT R/O COVID-19 09/17/2020 09/17/2020 09/19/2020 3:30 AM FARM CONTRACTOR documented as of this encounter Care Teams Finish Production Manager Relationship Specialty Start Date End Date Cary Monzon DO [address] [place] [address] PCP - General Family Practice 10/28/11 documented as of this encounter
--- OUTSIDE RECORDS SUMMARY | 2025-05-10 22:32 | XMS_ITS | Encounter Summary ---
Author Organization [facility] Address [address] [place] [address] Care Team Providers Care Chief Of Safety And Protection Name Role Phone Cary Monzon DO Primary Care Provider Encounter Details Date Type Department Care Team (Latest Contact Info) Description 2005 Outpatient Historical [facility] [address] [place] [phone] Ovidio Tompkins MD NO ADDRESS ON FILE Routine child health exam (Primary Dx) Social History Tobacco Use Types Packs/Day Years Used Date Smoking Tobacco: Never Assessed Comments Unknown Sex and Gender Information Value Date Recorded Sex Assigned at Not on file Legal Sex Female 3:37 AM GREEN END WORKER Gender Identity Not on file Sexual Orientation [...] R/O COVID-19 09/17/2020 09/17/2020 09/19/2020 3:30 AM GREEN END WORKER documented as of this encounter Care Teams Chief Of Safety And Protection Relationship Specialty Start Date End Date Cary Monzon DO [address] [place] [address] PCP - General Family Practice 10/28/11 documented as of this encounter
--- OUTSIDE RECORDS SUMMARY | 2025-05-10 22:32 | XMS_ITS | Encounter Summary ---
Author Organization [facility] Address [address] [place] [address] Care Team Providers Care Dough Puncher Name Role Phone NaCary bautista Primary Care Provider Encounter Details Date Type Department Care Team (Late st Contact Info) Description 2005 Emergency [facility] Emergency Department [address] [place] [address] Roverto Patel DO NO ADDRESS ON FILE ESOPHAGEAL REFLUX (Primary Dx) Social History Tobacco Use Types Packs/Day Years Used Date Smoking Tobacco: Never Assessed Comments Unknown Sex and Gender Information Value Date Recorded Sex Assigned at Not on file Legal Sex Female 3:37 AM ASBESTOS WIRE FINISHER Gender Identity Not on file Sexual Orientation Not on file documented as of this encounter Plan of Treatment Not on file documented as of this encounter Procedures Procedure Name Priority Date/Time Associated Diagnosis Comments DIFFERENTIAL, MANUAL Routine 2005 6:17 PM CDT CBC WITH DIFFERENTIAL Routine 2005 6:17 PM CDT BASIC METABOLIC PANEL Routine 2005 6:17 PM CDT documented in this encounter Results * (ABNORMAL) DIFFERENTIAL, MANUAL (2005 6:17 PM CDT) NEUTROPHILS, SEG 23 15 - 35 % INT ERFACE SYSTEM BANDS 2(L) 5 - 10 % INTERFACE SYSTEM LYMPHOCYTES 58 41 - 71 % INTERFAC E SYSTEM MONOCYTE 12(H) 5 - 7 % INTERFACE SYSTEM EOSINOPHILS 4(H) 0 - 3 % INTERFAC E SYSTEM BASOPHILS 1 0 - 1 % INTERFACE SYSTEM PLATELET EST. Normal Normal INTERF JAYLON SYSTEM RBC MORPHOLOGY Abnormal(A ) Normal INTERFACE SYSTEM ANISOCYTOSIS 1+(A) None Seen INTERFA CE SYSTEM POIKILOCYTES 1+(A) None Seen INTERFA CE SYSTEM 2005 6:17 PM CDT Roverto Patel DO HEMATOLOGY ORDERABLES COM Fi nal Result Performing Organization Address [facility] Phone Number INTERFACE SYSTEM Refer to clinic/hospital department * (ABNORMAL) CBC WITH DIFFERENTIAL (2005 6:17 PM CDT) Pathologist [facility] RBC 5.18 3.00 - 6.20 Mil/ul INTERFACE SYSTEM HEMOGLOBIN 16.8(H) 12.2 - 16.0 g/dL INTERFACE SYSTEM HEMATOCRIT 48.4 38.0 - 52.0 % INTERFACE SYSTEM MCV 93.4(L) 95.0 - 118.0 Fl INTERFACE SYSTEM MCH 32.4(L) 33.0 - 41.0 pg INTERFACE SYSTEM MCHC 34.7(H) 27.0 - 33.0 g/dL INTERFACE SYSTEM RDW 14.0 11.0 - 14.5 % INTERFACE SYSTEM PLATELETS 533(H) 140 - 440 K/ul INTERFACE SYSTEM MPV 10.0 8.9 - 12.8 Fl INTERFACE SYSTEM WBC 16.7 5.0 - 21.0 K/ul INTERFACE SYSTEM 2005 6:17 PM CDT Roverto Patel DO HEMATOLOGY ORDERABLES Final Result Performing Organization Address [facility] Phone Number INTERFACE SYSTEM Refer to clinic/hospital department * (ABNORMAL) BASIC METABOLIC PANEL (2005 6:17 PM CDT) Pathologist [facility] GLUCOSE 91 60 - 100 mg/dL INTERFACE SYSTEM BUN 7 7 - 17 mg/dL INTERFACE SYSTEM CREATININE 0.4 0.2 - 0.7 mg/dL INTERFACE SYSTEM SODIUM 140 136 - 145 mEq/L INTERFACE SYSTEM POTASSIUM 5.2(H) 3.5 - 5.0 mEq/L INTERFACE SYSTEM CHLORIDE 105 95 - 110 mEq/L INTERFACE SYSTEM CO2 26 22 - 32 mmol/l INTERFACE SYSTEM ANION GAP 14 9 - 20 mEq/L INTERFACE SYSTEM OSMOLALITY, CALCULATED 288 275 - 295 mOsm/Kg INTERFACE SYSTEM CALCIUM 10.3 8.4 - 10.5 mg/dL INTERFACE SYSTEM 2005 6:17 PM CDT us Roverto Patel DO CHEMISTRY ORDERABLES Final R esult INTERFACE SYSTEM Refer to clinic/hospital department documented in this encounter Visit Diagnoses Diagnosis Esophageal reflux- Primary documented in this encounter Additional Health Concerns Infection Onset Date Last Indicated Resolved Time R/O COVID-19 05/26/2020 05/26/2020 05/28/2020 2:15 AM CDT R/O COVID-19 09/17/2020 09/17/2020 09/19/2020 3:30 AM ASBESTOS WIRE FINISHER documented as of this encounter Care Teams Dough Puncher Relationship Specialty Start Date End Date Cary Monzon DO [address] [place] [phone] PCP - General Family Practice 10/28/11 documented as of this encounter
--- OUTSIDE RECORDS SUMMARY | 2025-05-10 22:32 | XMS_ITS | Encounter Summary ---
Author Organization [facility] Address [address] [place] [address] Care Team Providers Care Packing House Supervisor Name Role Phone Cary Monzon DO Primary Care Provider [phone] Encounter Details Date Type Department Care Team (Latest Contact Info) Description 2005 Outpatient Historical [facility] [address] [place] [address] Wm Barrett MD [address] [place] [phone] ESOPHAGEAL REFLUX (Primary Dx) Social History Tobacco Use Types Packs/Day Years Used Date Smoking Tobacco: Never Assessed Comments Unknown Sex and Gender Information Value Date Recorded Sex Assigned at Not on file Legal Sex Female 3:37 AM ASBESTOS REMOVAL WORKER Gender Identity Not on file Sexual Orientation Not on file documented as of this encounter Plan of Treatment Not on file documented as of this encounter Visit Diagnoses Diagnosis Esophageal reflux- Primary documented in this encounter Additional Health Concerns Infection Onset Date Last Indicated Resolved Time R/O COVID-19 05/26/2020 05/26/2020 05/28/2020 2:15 AM CDT R/O COVID-19 09/17/2020 09/17/2020 09/19/2020 3:30 AM ASBESTOS REMOVAL WORKER documented as of this encounter Care Teams Packing House Supervisor Relationship Specialty Start Date End Date Cary Monzon DO [address] [place] [phone] PCP - General Family Practice 10/28/11 documented as of this encounter
--- OUTSIDE RECORDS SUMMARY | 2025-05-10 22:32 | XMS_ITS | Encounter Summary ---
Author Organization [facility] Address [address] [place] [address] Care Team Providers Care Teacher [employer] Name Role Phone Cary Monzon DO Primary Care Provider Reason for Visit * Reason Comments Med Refill Encounter Details Date Type Department Care Team (Late st Contact Info) Description 05/06/2025 Refill [facility] [place] [address] [place] [address] Cary Monzon DO [address] [place] [address] Generalized anxiety disorder Social History Tobacco Use Types Packs/Day Years [...] on file Legal Sex Female 10:02 AM TABLE GAMES SHIFT MANAGER Gender Identity Not on file Sexual Orientation Not on file documented as of this encounter Miscellaneous Notes * Telephone Encounter - Lizzette Clark LPN - 05/06/2025 5:00 PM CDT Medication Refill Request Last Fill Date:Robaxin 03/03/25 #90 with 1 RF Clonidine 12/30/24 #60 with 2 RF PAT 03/13/25 Last labs 02/13/25 Recent and Future Visits: Recent Visits Date Type Provider Dept 04/28/25 Office Visit Chavezde[facility], [facility] 03/13/25 Office Visit Cary Monzon, DO [facility] 03/03/25 Office Visit December, [facility] 12/30/24 Office Visit December, [facility] 12/11/24 Office Visit Cary Monzon, [facility] 08/15/24 Office Visit Cary Monzon, DO [facility] 04/02/24 Office Visit Cary Monzon, [facility] 02/19/24 Office Visit Chavezdecember, [facility] 11/22/23 Office Visit Cary Monzon, [facility] Showing recent visits within past 540 days with a meds authorizing provider and meeting all other requirements Future Appointments Date Type Provider Dept 06/12/25 Appointment [facility]de[facility], [facility] 09/24/25 Appointment Cary Monzon, [facility] Showing future appointments within next 365 days with a meds authorizing provider and meeting all other requirements Last Labs: Lab Results Component Value Date/Time CREAT 0.64 02/14/2024 09:37 AM BUN 6 02/14/2024 09:37 AM NA 137 02/14/2024 09:37 AM K 3.0 (L) 02/14/2024 09:37 AM CL 100 02/14/2024 09:37 AM CO2 21 (L) 02/14/2024 09:37 AM GFR >60 02/14/2024 09:37 AM Zulema Malin - 2005 Check and review of the [place] PDMP performed on 05/06/2025 at 5:00 PM was documented in this encounter Plan of Treatment Upcoming Encounters Date Type Department Care Team (Late st Contact Info) Description 05/22/2025 10:10 AM CDT [facility] Visit [facility] [address] [place] [address] Vicki Maya PA [address] [place] [address] 06/12/2025 8:00 AM CDT Office Visit [facility] [address] [place] [address] Chavezdecember, COLLEGE ADMINISTRATOR [address] [place] [phone] 09/24/2025 8:40 AM TABLE GAMES SHIFT MANAGER Office Visit [facility] [address] [place] [phone] Cary Monzon DO [address] [place] [phone] documented as of this encounter Visit Diagnoses Diagnosis Generalized anxiety disorder documented in this encounter Care Teams Teacher [employer] Relationship Specialty Start Date End Date Cary Monzon DO [address] [place] [phone] PCP - General Family Practice 10/28/11 documented as of this encounter
--- OUTSIDE RECORDS SUMMARY | 2025-05-10 22:32 | XMS_ITS | Encounter Summary ---
Author Organization [facility] Address [address] [place] [address] Care Team Providers Care Customer Operations Specialist Name Role Phone Cary Monzon DO Primary Care Provider Encounter Details Date Type Department Care Team (Latest Contact Info) Description 2005 Outpatient Historical [facility] [address] [place] [address] Wm Barrett MD [address] [place] [phone] ESOPHAGEAL REFLUX (Primary Dx) Social History Tobacco Use Types Packs/Day Years Used Date Smoking Tobacco: Never Assessed Comments Unknown Sex and Gender Information Value Date Recorded Sex Assigned at Not on file Legal Sex Female 3:37 AM JOINERY SETTER OUT Gender Identity Not on file Sexual Orientation Not on file documented as of this encounter Plan of Treatment Not on file documented as of this encounter Visit Diagnoses Diagnosis Esophageal reflux- Primary documented in this encounter Additional Health Concerns Infection Onset Date Last Indicated Resolved Time R/O COVID-19 05/26/2020 05/26/2020 05/28/2020 2:15 AM CDT R/O COVID-19 09/17/2020 09/17/2020 09/19/2020 3:30 AM JOINERY SETTER OUT documented as of this encounter Care Teams Customer Operations Specialist Relationship Specialty Start Date End Date Cary Monzon DO [address] [place] [phone] PCP - General Family Practice 10/28/11 documented as of this encounter
--- OUTSIDE RECORDS SUMMARY | 2025-05-10 22:32 | XMS_ITS | Encounter Summary ---
Author Organization [facility] Address [address] [place] [address] Care Team Providers Care Industrial Energy Engineer Name Role Phone Cary Monzon DO Primary Care Provider [phone] Encounter Details Date Type Department Care Team (Latest Contact Info) Description 04/18/2006 Outpatient Historical [facility] [address] [place] [phone] Ovidio Tompkins MD NO ADDRESS ON FILE Routine Child Health Exam (Primary Dx); Unspecified Anemia Social History Tobacco Use Types Packs/Day Years Used Date Smoking Tobacco: Never Assessed Comments Unknown Sex and Gender Information Value Date Recorded Sex Assigned at Not on file Legal Sex Female 3:37 AM INSPECTOR AIDE Gender Identity Not on file Sexual Orientation Not on file documented as of this encounter Plan of Treatment Not on file documented as of this encounter Visit Diagnoses Diagnosis Routine child health exam- Primary Routine or child health check Anemia, unspecified documented in this encounter Additional Health Concerns Infection Onset Date Last Indicated Resolved Time R/O COVID-19 05/26/2020 05/26/2020 05/28/2020 2:15 AM CDT R/O COVID-19 09/17/2020 09/17/2020 09/19/2020 3:30 AM INSPECTOR AIDE documented as of this encounter Care Teams Industrial Energy Engineer Relationship Specialty Start Date End Date Cary Monzon DO [address] [place] [address] PCP - General Family Practice 10/28/11 documented as of this encounter
--- OUTSIDE RECORDS SUMMARY | 2025-05-10 22:32 | XMS_ITS | Encounter Summary ---
Author Organization [facility] Address [address] [place] [address] Care Team Providers Care Compliance Representative Dealer Name Role Phone NaCary bautista Primary Care Provider Encounter Details Date Type Department Care Team (Latest Contact Info) Description 2005 Outpatient Historical [facility] [address] [place] [address] Wm Barrett MD [address] [place] [phone] FAILURE TO THRIVE (Primary Dx) Social History Tobacco Use Types Packs/Day Years Used Date Smoking Tobacco: Never Assessed Comments Unknown Sex and Gender Information Value Date Recorded Sex Assigned at Not on file Legal Sex Female 3:37 AM BEHAVIORAL TECHNICIAN Gender Identity Not on file Sexual Orientation [...] COVID-19 09/17/2020 09/17/2020 09/19/2020 3:30 AM BEHAVIORAL TECHNICIAN documented as of this encounter Care Teams Compliance Representative Dealer Relationship Specialty Start Date End Date Cary Monzon DO [address] [place] [address] PCP - General Family Practice 10/28/11 documented as of this encounter
--- OUTSIDE RECORDS SUMMARY | 2025-05-10 22:32 | XMS_ITS | Encounter Summary ---
Author Organization [facility] Address [address] [place] [address] Care Team Providers Care Transformer Maker Name Role Phone Cary Monzon DO Primary Care Provider [phone] Encounter Details Date Type Department Care Team (Latest Contact Info) Description 2005 Outpatient Historical [facility] [address] [place] [address] Wm Barrett MD [address] [place] [phone] ESOPHAGEAL REFLUX (Primary Dx) Social History Tobacco Use Types Packs/Day Years Used Date Smoking Tobacco: Never Assessed Comments Unknown Sex and Gender Information Value Date Recorded Sex Assigned at Not on file Legal Sex Female 3:37 AM EDUCATION GENERAL MANAGER Gender Identity Not on file Sexual Orientation Not on file documented as of this encounter Plan of Treatment Not on file documented as of this encounter Visit Diagnoses Diagnosis Esophageal reflux- Primary documented in this encounter Additional Health Concerns Infection Onset Date Last Indicated Resolved Time R/O COVID-19 05/26/2020 05/26/2020 05/28/2020 2:15 AM CDT R/O COVID-19 09/17/2020 09/17/2020 09/19/2020 3:30 AM EDUCATION GENERAL MANAGER documented as of this encounter Care Teams Transformer Maker Relationship Specialty Start Date End Date Cary Monzon DO [address] [place] [phone] PCP - General Family Practice 10/28/11 documented as of this encounter
--- OUTSIDE RECORDS SUMMARY | 2025-05-10 22:32 | XMS_ITS | Encounter Summary ---
Author Organization [facility] Address [address] [place] [address] Care Team Providers Care Staff Electronic Warfare Officer Name Role Phone NaCary bautista Primary Care Provider Encounter Details Date Type Department Care Team (Latest Contact Info) Description 2005 Outpatient Historical [facility] [address] [place] [address] Wm Barrett MD [address] [place] [address] [phone] Routine child health exam (Primary Dx) Social History Tobacco Use Types Packs/Day Years Used Date Smoking Tobacco: Never Assessed Comments Unknown Sex and Gender Information Value Date Recorded Sex Assigned at Not on file Legal Sex Female 3:37 AM LEAD BURNER Gender Identity Not on file Sexual Orientation [...] R/O COVID-19 09/17/2020 09/17/2020 09/19/2020 3:30 AM LEAD BURNER documented as of this encounter Care Teams Staff Electronic Warfare Officer Relationship Specialty Start Date End Date Cary Monzon DO [address] [place] [address] PCP - General Family Practice 10/28/11 documented as of this encounter
--- OUTSIDE RECORDS SUMMARY | 2025-05-10 22:32 | XMS_ITS | Encounter Summary ---
Author Organization [facility] Address [address] [place] [address] Care Team Providers Care Underbaster Name Role Phone Cary Monzon DO Primary Care Provider [phone] Encounter Details Date Type Department Care Team (Latest Contact Info) Description 2005 Outpatient Historical [facility] [address] [place] [phone] Ovidio Tompkins MD NO ADDRESS ON FILE FEVER (Primary Dx) Social History Tobacco Use Types Packs/Day Years Used Date Smoking Tobacco: Never Assessed Comments Unknown Sex and Gender Information Value Date Recorded Sex Assigned at Not on file 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 Gender Identity Not on file Sexual Orientation Not on file documented as of this encounter Plan of Treatment Not on file documented as of this encounter Visit Diagnoses Diagnosis Fever and other physiologic disturbances of temperature regulation- Primary documented in this encounter Additional Health Concerns Infection Onset Date Last Indicated Resolved Time R/O COVID-19 05/26/2020 05/26/2020 05/28/2020 2:15 AM CDT R/O COVID-19 09/17/2020 09/17/2020 09/19/2020 3:30 AM PLASTER MACHINE OPERATOR documented as of this encounter Care Teams Underbaster Relationship Specialty Start Date End Date Cary Monzon DO [address] [place] [address] PCP - General Family Practice 10/28/11 documented as of this encounter
--- OUTSIDE RECORDS SUMMARY | 2025-05-10 22:32 | XMS_ITS | Encounter Summary ---
Author Organization [facility] Address [address] [place] [address] Care Team Providers Care Machine Chocolate Molder Name Role Phone NaCary bautista Primary Care Provider Encounter Details Date Type Department Care Team (Latest Contact Info) Description 2005 Outpatient Historical [facility] [address] [place] [address] Wm Barrett MD [address] [place] [address] [phone] FAILURE TO THRIVE (Primary Dx) Social History Tobacco Use Types Packs/Day Years Used Date Smoking Tobacco: Never Assessed Comments Unknown Sex and Gender Information Value Date Recorded Sex Assigned at Not on file Legal Sex Female 3:37 AM OFFBEARER Gender Identity Not on file Sexual Orientation [...] R/O COVID-19 09/17/2020 09/17/2020 09/19/2020 3:30 AM OFFBEARER documented as of this encounter Care Teams Machine Chocolate Molder Relationship Specialty Start Date End Date Cary Monzon DO [address] [place] [address] PCP - General Family Practice 10/28/11 documented as of this encounter
--- OUTSIDE RECORDS SUMMARY | 2025-05-10 22:32 | XMS_ITS | Encounter Summary ---
Author Organization [facility] Address 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 Gender Identity Not on file Sexual Orientation Not on file documented as of this encounter Plan of Treatment Upcoming Encounters Date Type Department Care Team (Late st Contact Info) Description 05/22/2025 10:10 AM CDT Office Visit [facility] [address] [place] [phone] Vicki Maya PA [address] [place] [phone] 06/12/2025 8:00 AM CDT Office Visit [facility] [address] [place] [phone] December, [facility] [address] [place] [phone] 09/24/2025 8:40 AM MANAGER PROCESS EXCELLENCE Office Visit [facility] [address] [place] [phone] Cary Monzon DO [address] [place] [phone] documented as of this encounter Visit Diagnoses Not on filedocumented in this encounter Care Teams Top And Trim Worker Relationship Specialty Start Date End Date Cary Monzon DO [address] [place] [address] PCP - General Family Practice 10/28/11 documented as of this encounter
--- OUTSIDE RECORDS SUMMARY | 2025-05-10 22:32 | XMS_ITS | Encounter Summary ---
Author Organization [facility] Address [address] [place] [address] Care Team Providers Care Power Grader Operator Name Role Phone Cary Monzon DO Primary Care Provider Encounter Details Date Type Department Care Team (Latest Contact Info) Description 2005 Outpatient Historical [facility] [address] [place] [phone] Ovidio Tompkins MD NO ADDRESS ON FILE FAILURE TO THRIVE (Primary Dx); ESOPHAGEAL REFLUX Social History Tobacco Use Types Packs/Day Years Used Date Smoking Tobacco: Never Assessed Comments Unknown Sex and Gender Information Value Date Recorded Sex Assigned at Not on file 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 Gender Identity Not on file Sexual Orientation Not on file documented as of this encounter Plan of Treatment Not on file documented as of this encounter Visit Diagnoses Diagnosis 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
--- OUTSIDE RECORDS SUMMARY | 2025-05-10 22:32 | XMS_ITS | Encounter Summary ---
Author Organization [facility] Address [address] [place] [address] Care Team Providers Care Project Officer Name Role Phone Cary Monzon DO Primary Care Provider Encounter Details Date Type Department Care Team (Latest Contact Info) Description 2005 Outpatient Historical [facility] [place] [address] [place] [phone] Ovidio Tompkins MD NO ADDRESS ON FILE Routine Child Health Exam (Primary Dx); Esophageal Reflux Social History Tobacco Use Types Packs/Day Years Used Date Smoking Tobacco: Never Assessed Comments Unknown Sex and Gender Information Value Date Recorded Sex Assigned at Not on file 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
--- OUTSIDE RECORDS SUMMARY | 2025-05-10 22:32 | XMS_ITS | Encounter Summary ---
Author Organization [facility] Address [address] [place] [address] Care Team Providers Care Supervisor Tumblers Name Role Phone NaCary bautista Primary Care Provider Encounter Details Date Type Department Care Team (Latest Contact Info) Description 2005 Outpatient Historical [facility] [address] [place] [address] Wm Barrett MD [address] [place] [phone] UNSPECIFIED VIRAL INFECTION (Primary Dx) Social History Tobacco Use Types Packs/Day Years Used Date Smoking Tobacco: Never Assessed Comments Unknown Sex and Gender Information Value Date Recorded Sex Assigned at Not on file Legal Sex Female 3:37 AM DIGITAL PHOTOGRAPHER Gender Identity Not on file Sexual Orientation Not on file documented as of this encounter Plan of Treatment Not on file documented as of this encounter Visit Diagnoses Diagnosis Unspecified viral infection, in conditions classified elsewhere and of unspecified site- Primary documented in this encounter Additional Health Concerns Infection Onset Date Last Indicated Resolved Time R/O COVID-19 05/26/2020 05/26/2020 05/28/2020 2:15 AM CDT R/O COVID-19 09/17/2020 09/17/2020 09/19/2020 3:30 AM DIGITAL PHOTOGRAPHER documented as of this encounter Care Teams Supervisor Tumblers Relationship Specialty Start Date End Date Cary Monzon DO [address] [place] [address] PCP - General Family Practice 10/28/11 documented as of this encounter
[2025-05-10 23:19] LABS: Glucose Urine UA Negative (Normal); Nitrate Urine Negative (Negative)
[2025-05-10 23:22] LABS: Add Urine Microscopic? YES
[2025-05-10 23:23] LABS: Specific Gravity, Urine 1.036 (1.005-1.030)
[2025-05-10 23:47] VITALS: BP 110/82; PULSE 70; RESP 16; O2SAT 98
[2025-05-11 00:04] LABS: Hematocrit 38.5 % (36-47); Hemoglobin 12.80 g/dL (12.4-14.8); Mean Corpuscular HGB Conc 33.2 g/dL (30-55); Mean Corpuscular Hemoglobin 27.8 pg (27-33); Mean Corpuscular Volume 83.5 fl (85-98); Nucleated Red Blood Cells % 0 %; Platelet Count 248 10^3/cmm (157-399); Red Blood Count 4.61 10^6/uL (3.85-5.65); White Blood Count 9.82 10^3/uL (4.5-13.0)
[2025-05-11 00:48] VITALS: BP 110/74; PULSE 71; RESP 16; O2SAT 99
[2025-05-11 00:55] LABS: Alanine Aminotransferase 16 U/L (0-33); Albumin Level 4.1 g/dL (3.5-5.2); Alkaline Phosphatase 78 U/L (35-105); Anion Gap 16.1 (5-19); Aspartate Amino Transferase 11 U/L (0-32); Blood Urea Nitrogen 5 mg/dL (6-20); Calcium 9.5 mg/dL (8.5-10.5); Carbon Dioxide 22 mmol/L (22-29); Chloride 103 mmol/L (98-107); Creatinine Clr Calc Pharmacy 171.6433; Globulin 3.2 g/dL (1.3-4.6); Glucose 100 mg/dL (65-115); Osmolality Calculated 281 mOsm/kg (285-295); Potassium 4.1 mmol/L (3.5-5.1); Sodium 137 mmol/L (136-145); Total Protein 7.3 g/dL (6.6-8.7)
--- NOTE | 2025-05-11 01:21 | W.ED.ABDPA2 ---
Documented by User: ROSELINE Pickens 05/11/25 13:06 HPI - Abdominal Pain General: Chief Complaint: Abdominal Pain Stated Complaint: 2,3 mnth prg stabbing side pain now abd pain Time Seen by Provider: 05/10/25 22:47 Source: patient Mode of arrival: ambulatory Limitations: no limitations History of Present Illness: Patient is a 20-year-old female who presents to the emergency department with lower abdominal pain that began earlier today. States that she was walking when it started, and occasionally this pain radiates to the rest of her abdomen. States that she is , last normal menstrual period was at the end of February and she does not have OB established due to her having trouble getting into see 1 with her medications she is on. She is not reporting any nausea or vomiting, vaginal bleeding, syncope, dizziness, lightheadedness, or palpitations. Her vitals are stable at this time. Notes that overall the pain is mild but cramping. This is her first . She states that she had her confirmed by her primary care provider, urine test. MD elicited complaint: abdominal pain Onset (ago): hour(s) Pain Consistency: constant Location: RLQ and LLQ Severity: mild Quality: cramping Associated Symptoms: Denies bloating, change in stool character, chills, constipation, diarrhea, dysuria, fever(s), hematochezia, nausea and vomiting Related Data Home Medications ?Medication ?Instructions ?Recorded ?Confirmed buspirone 5 mg tablet 5 mg PO TID 11/14/19 11/28/22 cetirizine 10 mg capsule 10 mg PO DAILY 11/14/19 11/28/22 diphenhydramine HCl 25 mg capsule 25 mg PO Q6H PRN allergies 11/14/19 11/28/22 (Benadryl) epinephrine 0.3 mg/0.3 mL 0.3 mg IM Q30M PRN unknown 11/14/19 11/28/22 injection, auto-injector loratadine 10 mg tablet 10 mg PO DAILY 11/14/19 11/28/22 mirtazapine 15 mg tablet (Remeron) 7.5 mg PO DAILY 11/14/19 11/28/22 risperidone 2 mg tablet (Risperdal) 2 mg PO DAILY 11/14/19 11/28/22 sertraline 50 mg tablet (Zoloft) 75 mg PO DAILY 11/14/19 11/28/22 ibuprofen 400 mg tablet 400 mg PO TID PRN Pain 11/22/19 11/28/22 ondansetron 4 mg disintegrating 4 mg PO Q8H PRN nausea/vomiting 11/22/19 11/28/22 tablet famotidine 20 mg tablet 20 mg PO BID 03/09/20 11/28/22 melatonin 3 mg tablet 3 mg PO BEDTIME 03/09/20 11/28/22 Previous Rx's ?Medication ?Instructions ?Recorded cam boot to left #1 ea 08/29/22 ASO to left #1 ea 10/12/22 prednisone 10 mg tablet 10 mg PO DIRECTED #65 tabs 02/14/24 triamcinolone acetonide 0.5 % 1 applic topical BID PRN Rash #30 02/14/24 topical cream grams Allergies Allergy/AdvReac Type Severity Reaction Status Date / Time adhesive tape Allergy Unknown Verified 11/28/22 14:56 Alpha-Gal Allergy ALGY-Anaphy Verified 11/13/23 11:14 ([id number]-Sqcky-1,3-Gala laxis doxycycline Allergy vomit Verified 11/28/22 14:56 naproxen Allergy vomit Verified 11/28/22 14:56 Review of Systems General: Reports: 10 or more systems reviewed and unremarkable except in HPI and below Const: Denies: fever(s), chills, change in appetite, change in weight or diaphoresis ENMT: Denies: throat pain or hoarseness Card: Denies: chest pain, palpitations or lightheadedness Resp: Denies: dyspnea, productive cough or wheezing GI: Reports: abdominal pain; Denies: nausea, vomiting, diarrhea, constipation, bloating, change in stool character or hematochezia : Denies: flank pain, difficulty voiding, dysuria, urinary frequency or urinary urgency Musc: Denies: neck pain or back pain Skin/Breast: Denies: rash or new lesions Neuro: Denies: headache(s) or dizziness PFSH ED PFSH: Medical History ADHD Bipolar 1 disorder Chronic sinusitis Tinnitus Nasal turbinate hypertrophy Deviated septum Allergic rhinitis Social History Smoking and tobacco/nicotine status: never used tobacco/nicotine Second hand smoke exposure: Yes Alcohol intake: never Substance/Drug Use: never Highest education level completed: 8th Grade Pets and animals: Yes Pets & animals: dog(s) Physical Exam Const: COMMON NORMALS: no acute distress, average body habitus, patient oriented x3, no limitations, healthy appearing, alert and well nourished GENERAL APPEARANCE: cooperative and comfortable ORIENTATION/CONSCIOUSNESS: Yes awake Eye: COMMON NORMALS: Equal, round and reactive pupils present, EOMs intact bilaterally, conjunctivae normal and normal visual maria by confrontation CONJUNCTIVA: Yes conjunctivae normal PUPIL: Yes Equal, round and reactive pupils present Neck/C-Spine: COMMON NORMALS: full ROM, supple, no meningeal signs and no JVD Resp: COMMON NORMALS: normal respiratory effort, No retractions, No use of accessory muscles and clear to auscultation bilaterally AUSCULTATION: clear to auscultation bilaterally, no crackles, no rales, no rhonchi and no wheezes Cardio: COMMON NORMALS: no JVD, regular rate, regular rhythm, No gallops present (Cardio), No clicks present (Cardio), No murmurs present (Cardio), No rub (Cardio) and Peripheral pulses 2+ throughout RATE: regular rate RHYTHM: regular rhythm PERIPHERAL PULSES: Peripheral pulses 2+ throughout GI: COMMON NORMALS: Normal to inspection, nondistended, normoactive bowel sounds present, Soft to palpation, No hepatosplenomegaly present and no masses AUSCULTATION: Yes normoactive bowel sounds PALPATION: Yes Soft to palpation, No Guarding due to palpation present (GI), No Rigid due to palpation and Yes No hepatosplenomegaly present RECTAL EXAM: deferred OTHER: Mild lower abdominal tenderness to palpation, nonspecific : COMMON NORMALS: Yes no CVA tenderness BLADDER/KIDNEY EXAM: Yes no CVA tenderness Back/Pelvis: COMMON NORMALS: no CVA tenderness Extremity: COMMON NORMALS: normal to inspection and full ROM Neuro: COMMON NORMALS: patient oriented x3, moves all extremities, no focal motor deficits and no sensory deficits noted SENSORIUM/ORIENTATION: Yes alert MENINGEAL SIGNS: Yes no meningeal signs Psych: COMMON NORMALS: mental status grossly normal, cooperative and speech normal SPEECH: Yes normal speech Skin: COMMON NORMALS: no rashes or lesions noted GENERAL SKIN EXAM: no rashes or lesions noted Course Vital Signs: Vital signs: Vital Signs Temperature 98.0 F 05/10/25 22:30 Pulse Rate 75 05/11/25 04:34 Respiratory Rate 16 05/11/25 00:48 Blood Pressure 104/71 05/11/25 04:34 Pulse Oximetry 100 05/11/25 04:34 Oxygen Delivery Me thod Room Air 05/11/25 00:48 MDM - Abdominal Pain Lab Data 05/10/25 23:46 05/10/25 23:46 Labs/Radiology: Radiology Impressions Ultrasound 05/11/25 23:11 IMPRESSION: 1. Single living intrauterine fetus, 10 weeks, 0 days estimated age. 2. Probable small subchorionic hematoma, measuring 14 x 3 x 14 mm. 3. Unremarkable ovaries. 4. Blood flow detected in each ovary. 5. Other details discussed above. IMPRESSION: 1. Single living intrauterine fetus, 10 weeks, 0 days estimated age. 2. Probable small subchorionic hematoma, measuring 14 x 3 x 14 mm. 3. Unremarkable ovaries. 4. Blood flow detected in each ovary. 5. Other details discussed above. Laboratory Results WBC 9.82 10^3/uL (4.5-13.0) 05/10/25 23:46 RBC 4.61 10^6/uL (3.85-5.65) 05/10/25 23:46 Hgb 12.80 g/dL (12.4-14.8) 05/10/25 23:46 Hct 38.5 % (36-47) 05/10/25 23:46 MCV 83.5 fl (85-98) L 05/10/25 23:46 MCH 27.8 pg (27-33) 05/10/25 23:46 MCHC 33.2 g/dL (30-55) 05/10/25 23:46 RDW 13.4 % (12.1-15.1) 05/10/25 23:46 Plt Count 248 10^3/cmm (157-399) 05/10/25 23:46 MPV 10.7 fL (7.4-10.4) H 05/10/25 23:46 Neut % (Auto) 55.7 % 05/10/25 23:46 Lymph % (Auto) 34.4 % 05/10/25 23:46 [place] % (Auto) 8.9 % 05/10/25 23:46 Eos % (Auto) 0.4 % 05/10/25 23:46 Baso % (Auto) 0.4 % 05/10/25 23:46 Neut # (Auto) 5.47 10^3/uL (1.8-8.0) 05/10/25 23:46 Lymph # (Auto) 3.4 10^3/uL (1.5-6.5) 05/10/25 23:46 [place] # (Auto) 0.9 10^3/uL (0.2-0.9) 05/10/25 23:46 Eos # (Auto) 0.0 10^3/uL (0.0-0.8) 05/10/25 23:46 Baso # (Auto) 0.0 10^3/uL (0.0-0.1) 05/10/25 23:46 Nucleated RBC % (auto) 0 % 05/10/25 23:46 Nucleated RBCs # 0.0 /100WBC 05/10/25 23:46 Sodium 137 mmol/L (136-145) 05/10/25 23:46 Potassium 4.1 mmol/L (3.5-5.1) 05/10/25 23:46 Chloride 103 mmol/L (98-107) 05/10/25 23:46 Carbon Dioxide 22 mmol/L (22-29) 05/10/25 23:46 Anion Gap 16.1 (5-19) 05/10/25 23:46 BUN 5 mg/dL (6-20) L 05/10/25 23:46 Creatinine 0.5 mg/dL (0.5-0.9) 05/10/25 23:46 GFR Calculation 157.3 mL/min (90-130) H 05/10/25 23:46 Glucose 100 mg/dL (65-115) 05/10/25 23:46 Calculated Osmolality 281 mOsm/kg (285-295) L 05/10/25 23:46 Calcium 9.5 mg/dL (8.5-10.5) 05/10/25 23:46 Total Bilirubin 0.2 mg/dL (0.15-1.2) 05/10/25 23:46 AST 11 U/L (0-32) 05/10/25 23:46 ALT 16 U/L (0-33) 05/10/25 23:46 Alkaline Phosphatase 78 U/L (35-105) 05/10/25 23:46 Total Protein 7.3 g/dL (6.6-8.7) 05/10/25 23:46 Albumin 4.1 g/dL (3.5-5.2) 05/10/25 23:46 Globulin 3.2 g/dL (1.3-4.6) 05/10/25 23:46 Ser , Semi-Qnt 92684.00 mIU/mL 05/10/25 23:46 Urine Color Yellow (Yellow) 05/10/25 23:11 Urine Appearance Clear (CLEAR) 05/10/25 23:11 Urine pH 5.5 (5-7) 05/10/25 23:11 Ur Specific [place] 1.036 (1.005-1.030) H 05/10/25 23:11 Urine Protein Trace (Negative) A 05/10/25 23:11 Urine Glucose (UA) Negative (Normal) 05/10/25 23:11 Urine Ketones Trace (Negative) 05/10/25 23:11 Urine Blood Negative (Negative) 05/10/25 23:11 Urine Nitrate Negative (Negative) 05/10/25 23:11 Urine Bilirubin Negative (Negative) 05/10/25 23:11 Urine Urobilinogen 1.0 mg/dL (Negative) 05/10/25 23:11 Ur Leukocyte Esterase Negative (Negative) 05/10/25 23:11 Urine RBC 0-2 /hpf (0-2) 05/10/25 23:11 Urine WBC 0-5 /hpf (0-5) 05/10/25 23:11 Ur Squamous Epith Cells 0-5 /hpf (0-5) 05/10/25 23:11 Amorphous Sediment Not Reportable 05/10/25 23:11 Urine Bacteria None seen /hpf (NONE) 05/10/25 23:11 Hyaline Casts 4.52 /lpf 05/10/25 23:11 Blood Type O Negative 05/10/25 23:46 Rho(D) Type Rh negative 05/10/25 23:46 Antibody Screen Negative 05/10/25 23:46 All radiology interpretation(s) finalized by discharge Discharge Plan Discharge Patient Disposition: Home Clinical Impression: Abdominal pain during Qualifiers: Trimester: first trimester Qualified Code(s): O26.891 - Other specified related conditions, first trimester Condition: Stable Prescriptions: No Action buspirone 5 mg tablet 5 mg PO TID cetirizine 10 mg capsule 10 mg PO DAILY diphenhydramine HCl [Benadryl] 25 mg capsule 25 mg PO Q6H PRN (Reason: allergies) epinephrine 0.3 mg/0.3 mL auto-injector 0.3 mg IM Q30M PRN (Reason: unknown) loratadine 10 mg tablet 10 mg PO DAILY mirtazapine [Remeron] 15 mg tablet 7.5 mg PO DAILY risperidone [Risperdal] 2 mg tablet 2 mg PO DAILY sertraline [Zoloft] 50 mg tablet 75 mg PO DAILY Rx Instructions: dose change. take 1 and 1/2 tabs to equal 75 mg daily ibuprofen 400 mg tablet 400 mg PO TID PRN (Reason: Pain) ondansetron 4 mg tablet,disintegrating 4 mg PO Q8H PRN (Reason: nausea/vomiting) (DME) cam boot to left See Rx Instructions .Route .MEDSUPPLY Qty: 1 0RF Rx Instructions: As directed (DME) ASO to left See Rx Instructions .Route .MEDSUPPLY Qty: 1 0RF Rx Instructions: As directed melatonin 3 mg Tablet 3 mg PO BEDTIME famotidine 20 mg Tablet 20 mg PO BID triamcinolone acetonide 0.5 % Cream 1 applic topical BID PRN (Reason: Rash) Qty: 30 0RF prednisone 10 mg tablet 10 mg PO DIRECTED Qty: 65 0RF Rx Instructions: see taper instructions Discharge Orders: Discharge ED (Routine); Ordered 05/11/25 Ordered By: Christian Calderon Referrals: Cary Monzon DO [Primary Care Provider, Family Practice] Patient Instructions: Patient Portal & Brit Instructions Activity Restrictions/Additional Instructions: Abdominal Pain Discharge Diagnosis: Acute abdominal pain in , reassuring for intrauterine , with normal laboratory and ultrasound findings. Summary of Evaluation: - Hemodynamically stable. - No evidence of ectopic , appendicitis, cholecystitis, urolithiasis, or other acute surgical pathology on imaging and laboratory studies. - No laboratory abnormalities. Discharge Instructions: - Activity: May resume normal activities as tolerated. Avoid strenuous exercise until pain resolves. - Diet: Advance diet as tolerated. If nausea is present, start with clear liquids and progress as able. Avoid high-fat meals if biliary pain is suspected. - Medications: Acetaminophen is preferred for analgesia in . Avoid NSAIDs, especially in the third trimester, due to risk of complications. - Hydration: Maintain adequate oral hydration. - Follow-up: Schedule outpatient follow-up with obstetrics within 1 week, or sooner if symptoms persist or worsen. Return Precautions: - Worsening or persistent abdominal pain. - Fever > 38?C (100.4?F). - Persistent vomiting or inability to tolerate oral intake. - Vaginal bleeding or passage of tissue. - Signs of labor (regular contractions, leakage of fluid, pelvic pressure). - Syncope, severe dizziness, or new onset chest pain. - Any new or concerning symptoms. Additional Notes: - Most cases of acute abdominal pain in are self-limited and non-specific, but the differential is broad and includes both obstetric and non-obstetric etiologies. - A normal ultrasound and laboratory evaluation are reassuring, but do not exclude all pathology. Close follow-up and prompt re-evaluation for worsening symptoms are essential. - If pain persists beyond several days, or if new symptoms develop, further evaluation may be warranted, including repeat imaging (MRI preferred over CT in if ultrasound is inconclusive). Patient Education: - Abdominal pain during is common and often benign, but can occasionally signal serious conditions. Early reporting of worsening symptoms is critical for maternal and safety. Print Language: Pashto Coding Level of Care Code ED Insurance Rater for Chg Fwd Documented by User: Christian Calderon DO 05/11/25 18:37 HPI - Abdominal Pain General: Chief Complaint: Abdominal Pain Stated Complaint: 2,3 mnth prg stabbing side pain now abd pain Time Seen by Provider: 05/10/25 22:47 Related Data Home Medications ?Medication ?Instructions ?Recorded ?Confirmed buspirone 5 mg tablet 5 mg PO TID 11/14/19 11/28/22 cetirizine 10 mg capsule 10 mg PO DAILY 11/14/19 11/28/22 diphenhydramine HCl 25 mg capsule 25 mg PO Q6H PRN allergies 11/14/19 11/28/22 (Benadryl) epinephrine 0.3 mg/0.3 mL 0.3 mg IM Q30M PRN unknown 11/14/19 11/28/22 injection, auto-injector loratadine 10 mg tablet 10 mg PO DAILY 11/14/19 11/28/22 mirtazapine 15 mg tablet (Remeron) 7.5 mg PO DAILY 11/14/19 11/28/22 risperidone 2 mg tablet (Risperdal) 2 mg PO DAILY 11/14/19 11/28/22 sertraline 50 mg tablet (Zoloft) 75 mg PO DAILY 11/14/19 11/28/22 ibuprofen 400 mg tablet 400 mg PO TID PRN Pain 11/22/19 11/28/22 ondansetron 4 mg disintegrating 4 mg PO Q8H PRN nausea/vomiting 11/22/19 11/28/22 tablet famotidine 20 mg tablet 20 mg PO BID 03/09/20 11/28/22 melatonin 3 mg tablet 3 mg PO BEDTIME 03/09/20 11/28/22 Previous Rx's ?Medication ?Instructions ?Recorded cam boot to left #1 ea 08/29/22 ASO to left #1 ea 10/12/22 prednisone 10 mg tablet 10 mg PO DIRECTED #65 tabs 02/14/24 triamcinolone acetonide 0.5 % 1 applic topical BID PRN Rash #30 02/14/24 topical cream grams Allergies Allergy/AdvReac Type Severity Reaction Status Date / Time adhesive tape Allergy Unknown Verified 11/28/22 14:56 Alpha-Gal Allergy ALGY-Anaphy Verified 11/13/23 11:14 (Vzdcsluig-Jzvpy-1,3-Gala laxis doxycycline Allergy vomit Verified 11/28/22 14:56 naproxen Allergy vomit Verified 11/28/22 14:56 PFSH ED PFSH: Medical History ADHD Bipolar 1 disorder Chronic sinusitis Tinnitus Nasal turbinate hypertrophy Deviated septum Allergic rhinitis Social History Smoking and tobacco/nicotine status: never used tobacco/nicotine Second hand smoke exposure: Yes Alcohol intake: never Substance/Drug Use: never Highest education level completed: 8th Grade Pets and animals: Yes Pets & animals: dog(s) Course Vital Signs: Vital signs: Vital Signs Temperature 98.0 F 05/10/25 22:30 Pulse Rate 75 05/11/25 04:34 Respiratory Rate 16 05/11/25 00:48 Blood Pressure 104/71 05/11/25 04:34 Pulse Oximetry 100 05/11/25 04:34 Oxygen Delivery Me thod Room Air 05/11/25 00:48 MDM - Abdominal Pain Medical Decision Making 20-year-old female G1. She was checked out to me by the previous provider. She complained of left lower quadrant pain. Improved currently. She is afebrile. Vitals are normal. CBC is normal. BMP is normal. Liver enzymes are normal. Urinalysis is not remarkable. She is not bleeding. No discharge. Ultrasound reveals a 10-week IUP with tiny subchorionic bleed. Cervix is closed. No pelvic free fluid. Ovaries have flow. No masses. Heart rate is 155. She will be allowed discharge. Outpatient follow-up. Lab Data 05/10/25 23:46 05/10/25 23:46 Labs/Radiology: Radiology Impressions Ultrasound 05/11/25 23:11 IMPRESSION: 1. Single living intrauterine fetus, 10 weeks, 0 days estimated age. 2. Probable small subchorionic hematoma, measuring 14 x 3 x 14 mm. 3. Unremarkable ovaries. 4. Blood flow detected in each ovary. 5. Other details discussed above. IMPRESSION: 1. Single living intrauterine fetus, 10 weeks, 0 days estimated age. 2. Probable small subchorionic hematoma, measuring 14 x 3 x 14 mm. 3. Unremarkable ovaries. 4. Blood flow detected in each ovary. 5. Other details discussed above. Laboratory Results WBC 9.82 10^3/uL (4.5-13.0) 05/10/25 23:46 RBC 4.61 10^6/uL (3.85-5.65) 05/10/25 23:46 Hgb 12.80 g/dL (12.4-14.8) 05/10/25 23:46 Hct 38.5 % (36-47) 05/10/25 23:46 MCV 83.5 fl (85-98) L 05/10/25 23:46 MCH 27.8 pg (27-33) 05/10/25 23:46 MCHC 33.2 g/dL (30-55) 05/10/25 23:46 RDW 13.4 % (12.1-15.1) 05/10/25 23:46 Plt Count 248 10^3/cmm (157-399) 05/10/25 23:46 MPV 10.7 fL (7.4-10.4) H 05/10/25 23:46 Neut % (Auto) 55.7 % 05/10/25 23:46 Lymph % (Auto) 34.4 % 05/10/25 23:46 [place] % (Auto) 8.9 % 05/10/25 23:46 Eos % (Auto) 0.4 % 05/10/25 23:46 Baso % (Auto) 0.4 % 05/10/25 23:46 Neut # (Auto) 5.47 10^3/uL (1.8-8.0) 05/10/25 23:46 Lymph # (Auto) 3.4 10^3/uL (1.5-6.5) 05/10/25 23:46 [place] # (Auto) 0.9 10^3/uL (0.2-0.9) 05/10/25 23:46 Eos # (Auto) 0.0 10^3/uL (0.0-0.8) 05/10/25 23:46 Baso # (Auto) 0.0 10^3/uL (0.0-0.1) 05/10/25 23:46 Nucleated RBC % (auto) 0 % 05/10/25 23:46 Nucleated RBCs # 0.0 /100WBC 05/10/25 23:46 Sodium 137 mmol/L (136-145) 05/10/25 23:46 Potassium 4.1 mmol/L (3.5-5.1) 05/10/25 23:46 Chloride 103 mmol/L (98-107) 05/10/25 23:46 Carbon Dioxide 22 mmol/L (22-29) 05/10/25 23:46 Anion Gap 16.1 (5-19) 05/10/25 23:46 BUN 5 mg/dL (6-20) L 05/10/25 23:46 Creatinine 0.5 mg/dL (0.5-0.9) 05/10/25 23:46 GFR Calculation 157.3 mL/min (90-130) H 05/10/25 23:46 Glucose 100 mg/dL (65-115) 05/10/25 23:46 Calculated Osmolality 281 mOsm/kg (285-295) L 05/10/25 23:46 Calcium 9.5 mg/dL (8.5-10.5) 05/10/25 23:46 Total Bilirubin 0.2 mg/dL (0.15-1.2) 05/10/25 23:46 AST 11 U/L (0-32) 05/10/25 23:46 ALT 16 U/L (0-33) 05/10/25 23:46 Alkaline Phosphatase 78 U/L (35-105) 05/10/25 23:46 Total Protein 7.3 g/dL (6.6-8.7) 05/10/25 23:46 Albumin 4.1 g/dL (3.5-5.2) 05/10/25 23:46 Globulin 3.2 g/dL (1.3-4.6) 05/10/25 23:46 Ser , Semi-Qnt 10877.00 mIU/mL 05/10/25 23:46 Urine Color Yellow (Yellow) 05/10/25 23:11 Urine Appearance Clear (CLEAR) 05/10/25 23:11 Urine pH 5.5 (5-7) 05/10/25 23:11 Ur Specific [place] 1.036 (1.005-1.030) H 05/10/25 23:11 Urine Protein Trace (Negative) A 05/10/25 23:11 Urine Glucose (UA) Negative (Normal) 05/10/25 23:11 Urine Ketones Trace (Negative) 05/10/25 23:11 Urine Blood Negative (Negative) 05/10/25 23:11 Urine Nitrate Negative (Negative) 05/10/25 23:11 Urine Bilirubin Negative (Negative) 05/10/25 23:11 Urine Urobilinogen 1.0 mg/dL (Negative) 05/10/25 23:11 Ur Leukocyte Esterase Negative (Negative) 05/10/25 23:11 Urine RBC 0-2 /hpf (0-2) 05/10/25 23:11 Urine WBC 0-5 /hpf (0-5) 05/10/25 23:11 Ur Squamous Epith Cells 0-5 /hpf (0-5) 05/10/25 23:11 Amorphous Sediment Not Reportable 05/10/25 23:11 Urine Bacteria None seen /hpf (NONE) 05/10/25 23:11 Hyaline Casts 4.52 /lpf 05/10/25 23:11 Blood Type O Negative 05/10/25 23:46 Rho(D) Type Rh negative 05/10/25 23:46 Antibody Screen Negative 05/10/25 23:46 Discharge Plan Discharge Patient Disposition: Home Clinical Impression: Abdominal pain during Qualifiers: Trimester: first trimester Qualified Code(s): O26.891 - Other specified related conditions, first trimester Condition: Stable Prescriptions: No Action buspirone 5 mg tablet 5 mg PO TID cetirizine 10 mg capsule 10 mg PO DAILY diphenhydramine HCl [Benadryl] 25 mg capsule 25 mg PO Q6H PRN (Reason: allergies) epinephrine 0.3 mg/0.3 mL auto-injector 0.3 mg IM Q30M PRN (Reason: unknown) loratadine 10 mg tablet 10 mg PO DAILY mirtazapine [Remeron] 15 mg tablet 7.5 mg PO DAILY risperidone [Risperdal] 2 mg tablet 2 mg PO DAILY sertraline [Zoloft] 50 mg tablet 75 mg PO DAILY Rx Instructions: dose change. take 1 and 1/2 tabs to equal 75 mg daily ibuprofen 400 mg tablet 400 mg PO TID PRN (Reason: Pain) ondansetron 4 mg tablet,disintegrating 4 mg PO Q8H PRN (Reason: nausea/vomiting) (DME) cam boot to left See Rx Instructions .Route .MEDSUPPLY Qty: 1 0RF Rx Instructions: As directed (DME) ASO to left See Rx Instructions .Route .MEDSUPPLY Qty: 1 0RF Rx Instructions: As directed melatonin 3 mg Tablet 3 mg PO BEDTIME famotidine 20 mg Tablet 20 mg PO BID triamcinolone acetonide 0.5 % Cream 1 applic topical BID PRN (Reason: Rash) Qty: 30 0RF prednisone 10 mg tablet 10 mg PO DIRECTED Qty: 65 0RF Rx Instructions: see taper instructions Discharge Orders: Discharge ED (Routine); Ordered 05/11/25 Ordered By: Christian Calderon Referrals: Cary Monzon DO [Primary Care Provider, Family Practice] Patient Instructions: Patient Portal & Brit Instructions Activity Restrictions/Additional Instructions: Abdominal Pain Discharge Diagnosis: Acute abdominal pain in , reassuring for intrauterine , with normal laboratory and ultrasound findings. Summary of Evaluation: - Hemodynamically stable. - No evidence of ectopic , appendicitis, cholecystitis, urolithiasis, or other acute surgical pathology on imaging and laboratory studies. - No laboratory abnormalities. Discharge Instructions: - Activity: May resume normal activities as tolerated. Avoid strenuous exercise until pain resolves. - Diet: Advance diet as tolerated. If nausea is present, start with clear liquids and progress as able. Avoid high-fat meals if biliary pain is suspected. - Medications: Acetaminophen is preferred for analgesia in . Avoid NSAIDs, especially in the third trimester, due to risk of complications. - Hydration: Maintain adequate oral hydration. - Follow-up: Schedule outpatient follow-up with obstetrics within 1 week, or sooner if symptoms persist or worsen. Return Precautions: - Worsening or persistent abdominal pain. - Fever > 38?C (100.4?F). - Persistent vomiting or inability to tolerate oral intake. - Vaginal bleeding or passage of tissue. - Signs of labor (regular contractions, leakage of fluid, pelvic pressure). - Syncope, severe dizziness, or new onset chest pain. - Any new or concerning symptoms. Additional Notes: - Most cases of acute abdominal pain in are self-limited and non-specific, but the differential is broad and includes both obstetric and non-obstetric etiologies. - A normal ultrasound and laboratory evaluation are reassuring, but do not exclude all pathology. Close follow-up and prompt re-evaluation for worsening symptoms are essential. - If pain persists beyond several days, or if new symptoms develop, further evaluation may be warranted, including repeat imaging (MRI preferred over CT in if ultrasound is inconclusive). Patient Education: - Abdominal pain during is common and often benign, but can occasionally signal serious conditions. Early reporting of worsening symptoms is critical for maternal and safety. Print Language: Pashto Coding Level of Care Code ED Insurance Rater for Augustine Florian
[2025-05-11 01:45] VITALS: BP 111/71; PULSE 66; O2SAT 98
[2025-05-11 04:34] VITALS: BP 104/71; PULSE 75; O2SAT 100
--- NOTE | 2025-05-11 23:11 | USR_ITS ---
NOTE: Report was unsigned for reason: Order was edited. Original Signature date and time was: 05/11/25 @ 0257 PROCEDURE INFORMATION: Exam: US Duplex Artery and Vein of the Abdominal and/or Reproductive Organs, Complete Exam date and time: 05/11/2025 2:57 AM Age: 20 years old Clinical indication: complicated by abdominal or pelvic pain; Left lower quadrant; First trimester (<14 weeks 0 days); Gestational age or lmp: 10w0d; ; Additional info: Abd pain, lower cramping TECHNIQUE: Imaging protocol: Real-time duplex ultrasound scan of the arterial and venous flow of the abdominal and/or reproductive organs with B-mode, color Doppler flow and spectral waveform analysis with image documentation. Exam focused on the region of clinical concern. Complete exam. Duplex exam was performed to evaluate for vascular conditions. COMPARISON: No relevant prior studies available. FINDINGS: Single living intrauterine fetus. [place] rump length of 3.1 cm estimates age at 10 weeks, 0 days. heart activity documented by the technologist, 163 bpm. Amniotic fluid appears adequate for gestation. Probable small subchorionic hematoma, measuring 14 x 3 x 14 mm. Cervical length evaluated with endovaginal scanning measures 3.1 cm. No definite cervical canal dilation or fluid on the provided images. No visible/significant free pelvic fluid. Maternal ovaries/adnexa appear essentially unremarkable. The right ovary measures 24 x 10 x 20 mm, estimated volume 2.6 cc. The left ovary measures 20 x 10 x 20 mm, estimated volume 2.2 cc. Ovarian blood flow was evaluated with color and spectral Doppler imaging. Arterial and venous blood flow detected within each ovary. Resistance index in the right ovary is 0.54. Resistance index in the left ovary is 0.44. The urinary bladder was not completely evaluated/imaged at this time. Endovaginal scanning provided better visualization/evaluation of the gestational sac and contents, adnexal regions, and cervix, as discussed above. PROCEDURE INFORMATION: Exam: US First Trimester, Transabdominal and US , Transvaginal Exam date and time: 05/11/2025 2:57 AM Age: 20 years old Clinical indication: complicated by abdominal or pelvic pain; Left lower quadrant; First trimester (<14 weeks 0 days); Gestational age or lmp: 10w0d; ; Additional info: Abd pain, lower cramping LABS AND CLINICAL REPORTS: Last menstrual period start date: 03/10/2025 Gestational age (Established): 8 w 6 d Estimated due date (Established): 12/15/2025 TECHNIQUE: Imaging protocol: Real-time transabdominal obstetrical ultrasound of the maternal pelvis and a first trimester , less than 14 weeks 0 days, with image documentation. Transvaginal imaging was used for better evaluation of the fetus, adnexa, and/or cervix. COMPARISON: No relevant prior studies available. FINDINGS: Single living intrauterine fetus. [place] rump length of 3.1 cm estimates age at 10 weeks, 0 days. heart activity documented by the technologist, 163 bpm. Amniotic fluid appears adequate for gestation. Probable small subchorionic hematoma, measuring 14 x 3 x 14 mm. Cervical length evaluated with endovaginal scanning measures 3.1 cm. No definite cervical canal dilation or fluid on the provided images. No visible/significant free pelvic fluid. Maternal ovaries/adnexa appear essentially unremarkable. The right ovary measures 24 x 10 x 20 mm, estimated volume 2.6 cc. The left ovary measures 20 x 10 x 20 mm, estimated volume 2.2 cc. Ovarian blood flow was evaluated with color and spectral Doppler imaging. Arterial and venous blood flow detected within each ovary. Resistance index in the right ovary is 0.54. Resistance index in the left ovary is 0.44. The urinary bladder was not completely evaluated/imaged at this time. Endovaginal scanning provided better visualization/evaluation of the gestational sac and contents, adnexal regions, and cervix, as discussed above. [facility] <=14 wk fetus w transvag IMPRESSION: 1. Single living intrauterine fetus, 10 weeks, 0 days estimated age. 2. Probable small subchorionic hematoma, measuring 14 x 3 x 14 mm. 3. Unremarkable ovaries. 4. Blood flow detected in each ovary. 5. Other details discussed above.
== END 2025-05-11 04:35 | disposition home or self-care (01) ==
PROVIDERS: Physician Assistant; Emergency Provider Emergency Medicine; PCP Family Medicine
DX: O26.891 Other specified pregnancy related conditions, first trimester (principal); R10.30 Lower abdominal pain, unspecified; Z3A.10 10 weeks gestation of pregnancy
CPT/HCPCS: 36415; 76801; 76817; 80053; 81001; 84702; 85025; 86850; 86900; 99284

== ENCOUNTER 2025-05-14 22:29 | Emergency (ER) | payer MEDICAID, SELFPAY ==
--- OUTSIDE RECORDS SUMMARY | 2019-01-18 06:42 | XMS_ITS | Continuity of Care Document ---
Author Organization [facility] [place] Address [address] [place] [address] Phone Care Team Providers Care Aquatic Habitat Biologist Name Role Phone Unavailable Unavailable Unavailable Advance Directives Directive Yes / No Effective Date File Name No Information Encounters Encounter Description Practice Location Reason(s) For Visit Diagnoses Date Provider Providers Copied on Encounter [facility], [address], [address], tel:[phone] [facility] No Information 0201 9 No Information Referring Provider: ISMA BURDEN L, [address] [place], [address]. tel:[phone] Family History Family Member Type Diagnosis Age At Onset Problem (finding) No family history of Hy pertension Problem (finding) No family history of Pr emature CAD Problem (finding) No family history of Ar rhythmia Problem (finding) No family history of Cage dden Problem (finding) No family hist ory of Cardiomyopathy - dilated Problem (finding) No family hist ory of Congenital Heart Disease Father Problem (finding) Marfan's Problem (finding) No family hist ory of Cardiomyopathy - hypertrophic Cousin Problem (finding) Marfan's Problem (finding) No family history of Di abetes Mellitus Payers Payer name Insurance type Covered republican ID Authoriza tion(s) [facility] [id number] Social History Type Description Quantity Date Captured [...]
[2025-05-14 22:33] VITALS: BP 105/73; PULSE 95; RESP 17; TEMP 36.6; O2SAT 98; BMI 24.9
--- OUTSIDE RECORDS SUMMARY | 2025-05-14 22:45 | XMS_ITS | Encounter Summary ---
Author Organization [facility] Address [address] [place] [address] Care Team Providers Care Horseshoer Name Role Phone Cary Monzon DO Primary Care Provider Encounter Details Date Type Department Care Team (Latest Contact Info) Description 08/09/2006 Outpatient Historical [facility] [place] [address] [place] [phone] Ovidio Tompkins MD NO ADDRESS ON FILE Routine Child Health Exam (Primary Dx) Social History Tobacco Use Types Packs/Day Years Used Date Smoking Tobacco: Never Assessed Comments Unknown Sex and Gender Information Value Date Recorded Sex Assigned at Not on file Legal Sex Female 3:37 AM CORPORATE INTERN Gender Identity Not on file Sexual Orientation [...] R/O COVID-19 09/17/2020 09/17/2020 09/19/2020 3:30 AM CORPORATE INTERN documented as of this encounter Care Teams Horseshoer Relationship Specialty Start Date End Date Cary Monzon DO [address] [place] [address] PCP - General Family Practice 10/28/11 documented as of this encounter
--- OUTSIDE RECORDS SUMMARY | 2025-05-14 22:45 | XMS_ITS | Encounter Summary ---
Author Organization [facility] Address [address] [place] [address] Care Team Providers Care Director Of Retail Analytics Name Role Phone NaCary bautista Primary Care Provider +1- [phone] Encounter Details Date Type Department Care Team (Latest Contact Info) Description 11/22/2006 Outpatient Historical [facility] Ovidio Tompkins MD NO ADDRESS ON FILE Failure to Thrive (Primary Dx) Social History Tobacco Use Types Packs/Day Years Used Date Smoking Tobacco: Never Assessed Comments Unknown Sex and Gender Information Value Date Recorded Sex Assigned at Not on file Legal Sex Female 3:37 AM APPLICATION DEVELOPMENT LIAISON Gender Identity Not on file Sexual Orientation [...] R/O COVID-19 09/17/2020 09/17/2020 09/19/2020 3:30 AM APPLICATION DEVELOPMENT LIAISON documented as of this encounter Care Teams Director Of Retail Analytics Relationship Specialty Start Date End Date Cary Monzon DO [address] [place] [address] PCP - General Family Practice 10/28/11 documented as of this encounter
--- OUTSIDE RECORDS SUMMARY | 2025-05-14 22:45 | XMS_ITS | Clinical Summary ---
Author Organization [facility] Address [address] Attn: Epic Prelude ADT ANDREW CARRION [address] Care Team Providers Care Insurance Claims Processor Name Role Phone Cary Monzon DO Primary Care Provider Allergies Active Allergy Reactions Criticality Noted Date Comments Adhesive Itching Low 07/18/2012 Alpha-Gal (Rjbdrqjmu-Tsipj-6,3-Galact ose) Hives High 06/17/2022 Benztropine Unknown 02/13/2023 [...] daily. 60 Gram 6 025 Active PNV,calcium 96-ixrv-bzjdo acid (PREPLUS) 27 mg iron- 1 mg [...] Encounters Date Type Department Care Team Description 05/13/2025 Orders Only [facility] [place] [address] [place] [address] Provider, Abstract 05/07/2025 External Device Data ST[facility] ABSTRACTION Provider, Abstract 05/06/2025 External Device Data [place] ABSTRACTION Provider, Abstract 05/06/2025 Refill [facility] [address] [place] [address] Cary Monzon, Generalized anxiety disorder 04/28/2025 1:40 PM CDT Office Visit [facility] [address] [place] [address] Chavezdecember, SCALES INSPECTOR Missed period (Primary Dx); confirmed by positive urine test 04/02/2025 Orders Only [facility] [address] [place] [address] Cary Monzon DO Left knee injury, initial encounter (Primary Dx) 03/26/2025 External Device Data ST[place] ABSTRACTION Provider, Abstract 03/18/2025 External Device Data ST[place] ABSTRACTION Provider, Abstract 03/13/2025 8:40 AM CDT Office Visit [facility] [address] [place] [address] Cary Monzon DO Generalized anxiety disorder (Primary Dx); Panic attacks; Gastroesophageal reflux disease without esophagitis; 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; Irritable bowel syndrome with both constipation and diarrhea; Bipolar disorder, in full remission, most recent episode depressed 03/03/2025 11:40 AM CDT Office Visit [facility] [address] [place] [address] Chavez, December, SCALES INSPECTOR Nausea and vomiting, unspecified vomiting type (Primary Dx); Sore throat; Acute cough; Rash 03/03/2025 Refill [facility] [address] [place] [address] Cary Monzon DO from Last 3 Months Immunizations Immunization Administration [...] PERTUSSIS, HEPATITIS B, AND INACTIVATED POLIOVIRUS VACCINE ([id number]), 0.5ML, IM 04/18/2006,2005,2005,04/06 (VARIVAX)(12 MOS UP)VARICELL A [...] on file Legal Sex Female 10:02 AM CYLINDER INSPECTOR AND TESTER Gender Identity Not on file Sexual Orientation [...] CDT Office Visit [facility] [address] [place] [address] Vicki Maya PA [address] [place] [address] 06/12/2025 8:00 AM CDT Office Visit [facility] [address] [place] [address] Kathy, December, SCALES INSPECTOR [address] [facility] [place] [address] 09/24/2025 8:40 AM CYLINDER INSPECTOR AND TESTER Office Visit [facility] [address] [facility] [place] [facility] [place] [address] Cary Monzon, DO [address] [facility] [place] [address] Health Maintenance Due Date Last Done Comments [...] history exists Medical Devices Implanted Type Area Rice Milling Supervisor Device Identifier Shelf Expiration Date Model / Serial / Lot Capsule Aldridge Ph Test s-0635 - [id number] Implanted:Qty : 1 on 10/22/2020 by Alden Price MD Other N/A: Esophagus [employer] COVIDIEN erp developer. GIVEN 03/13/2022 S-0636 / / [id number] Procedures Procedure Name Priority Date/Time Associated Diagnosis Comments COMPREHENSIVE METABOLIC PANEL Routine 05/10/2025 12:13 PM CDT POC , URINE Routine 04/28/2025 1:44 PM CDT Missed period POC RAPID STREP A ANTIGEN Routine 03/03/2025 12:10 PM CDT Sore throat from Last 3 Months Results * COMPREHENSIVE METABOLIC PANEL (05/10/2025 12:13 PM CDT) Blood us Abstract Provider CHEMISTRY ORDERABLES Final Res ult * (ABNORMAL) POC , URINE (04/28/2025 1:44 PM CDT) HCG QUAL URINE POC Positive(A ) Negative, Indeterminate [facility] INTERNAL KIT QC POC Pass Pass [facility] KIT LOT NUMBER POC [phone] [facility] KIT EXP DATE POC [id number] [facility] Urine 04/28/2025 1:44 PM CDT December SCALES INSPECTOR POINT OF CARE TESTING Final Resu lt Performing Organization Address City/[facility]/ZIP Co de Phone Number [facility] CLIA# [id number] [address] [place] [address] * POC RAPID STREP A ANTIGEN (03/03/2025 12:10 PM CDT) RAPID STREP POC Negative Negative, Indeterminate [facility] INTERNAL KIT QC POC Pass Pass [facility] KIT LOT NUMBER POC [phone] [facility] KIT EXP DATE POC [id number] [facility] READ METHOD POC Visual [facility] Upper Respiratory SPECIMEN FROM THROAT / Unknown 03/03/2025 12:10 PM CDT us December SCALES INSPECTOR POINT OF CARE TESTING Final Resu lt [facility] CLIA# [id number] [address] [place] [address] from Last 3 Months Insurance [facility] [place] [address] [place] [address] MEDICAID Care Teams Insurance Claims Processor Relationship Specialty Start Date End Date Cary Monzon DO [address] [place] [address] PCP - General Family Practice 10/28/11
--- OUTSIDE RECORDS SUMMARY | 2025-05-14 22:45 | XMS_ITS | Clinical Summary ---
Author Organization [facility] Address [address] [facility] [place] [address] Care Team Providers Care National Account Representative Name Role Phone Na Cary L DO Primary Care Provider Allergies [...] PERTUSSIS, HEPATITIS B, AND INACTIVATED POLIOVIRUS VACCINE ([id number]), 0.5ML, IM 2005,2005,2005 (VARIVAX)(12 MOS UP)VARICELL A [...] on file Legal Sex Female 3:37 AM WRAPPER HANDS SPRAYER Gender Identity Not on file Sexual Orientation [...] history exists Medical Devices Implanted Type Area Junior Analyst Device Identifier Shelf Expiration Date Model / Serial / Lot Capsule Aldridge Ph Test s-0635 - [id number] Implanted:Qty: 1 on 10/22/2020 by Alden Price MD at [facility] Other N/A: Esophagus [employer] COVIDIEN synchronous motor assembler. GIVEN 03/13/2022 [id number] / / [id number] Care Teams National Account Representative Relationship Specialty Start Date End Date Cary Monzon DO [address] [place] [address] PCP - General Family Practice 10/28/11
--- OUTSIDE RECORDS SUMMARY | 2025-05-14 22:45 | XMS_ITS | Encounter Summary ---
Author Organization [facility] Address [address] [place] [address] Care Team Providers Care Artificial Fly Tier Name Role Phone Cary Monzon Primary Care Provider +1- [phone] Encounter Details Date Type Department Care Team [...] on file Legal Sex Female 10:02 AM SCALE EXPERT Gender Identity Not on file Sexual Orientation Not on file documented as of this encounter Plan of Treatment Upcoming Encounters Date Type Department Care Team (Late st Contact Info) Description 05/22/2025 10:10 AM CDT Office Visit [facility] [address] [phone] Vicki Maya PA [address] [place] [phone] 06/12/2025 8:00 AM CDT Office Visit [facility] [address] [place] [address] December, NOC ENGINEER [address] [place] [phone] 09/24/2025 8:40 AM SCALE EXPERT Office Visit [facility] [address] [place] [address] Cary Monzon DO [address] [place] [address] documented as of this encounter Visit Diagnoses Not on filedocumented in this encounter Care Teams Artificial Fly Tier Relationship Specialty Start Date End Date Cary Monzon DO [address] [place] [address] PCP - General Family Practice 10/28/11 documented as of this encounter
--- OUTSIDE RECORDS SUMMARY | 2025-05-14 22:45 | XMS_ITS | Encounter Summary ---
Author Organization [facility] Address [address] [place] [address] Care Team Providers Care Tissue Coordinator Name Role Phone Cary Monzon DO Primary Care Provider Reason for Visit * Reason Comments Med Refill Encounter Details Date Type Department Care Team (Late st Contact Info) Description 05/06/2025 Refill [facility] [place] [address] [place] [address] Cary Monzon DO [address] [place] [address] Generalized anxiety disorder Social History [...] on file Legal Sex Female 10:02 AM EKG MANAGER Gender Identity Not on file Sexual [...] Type Provider Dept 04/28/25 Office Visit Chavezdecember, [facility] 03/13/25 Office Visit Cary Monzon, DO [facility] 03/03/25 Office Visit December, [facility] 12/30/24 Office Visit December, [facility] 12/11/24 Office Visit Cary Monzon, [facility] 08/15/24 Office Visit Cary Monzon, DO [facility] 04/02/24 Office Visit Cary Monzon, [facility] 02/19/24 Office Visit Chavezdecember, [facility] 11/22/23 Office Visit Cary Monzon, [facility] Showing recent visits within past 540 days with a meds authorizing provider and meeting all other requirements Future Appointments Date Type Provider Dept 06/12/25 Appointment Chavezdecember, [facility] 09/24/25 Appointment Cary Monzon, [facility] Showing future appointments within next 365 days [...] - 2005 Check and review of the [place] PDMP performed on 05/06/2025 at 5:00 PM was documented in this encounter Plan of Treatment Upcoming Encounters Date Type Department Care Team (Late st Contact Info) Description 05/22/2025 10:10 AM CDT Office Visit [facility] [address] [place] [address] Vicki Maya PA [address] [place] [address] 06/12/2025 8:00 AM CDT Office Visit [facility] [address] [place] [address] Chavezdecember, COOLING TOWER OPERATOR [address] [place] [phone] 09/24/2025 8:40 AM EKG MANAGER Office Visit [facility] [address] [place] [address] Cary Monzon DO [address] [place] [phone] documented as of this encounter Visit Diagnoses Diagnosis Generalized anxiety disorder documented in this encounter Care Teams Tissue Coordinator Relationship Specialty Start Date End Date Cary Monzon DO [address] [place] [phone] PCP - General Family Practice 10/28/11 documented as of this encounter
--- OUTSIDE RECORDS SUMMARY | 2025-05-14 22:45 | XMS_ITS | Encounter Summary ---
Author Organization [facility] Address [address] [place] [address] Care Team Providers Care Link Knitting Machine Operator Name Role Phone Cary Monzon Primary Care Provider +1- [phone] Encounter Details Date Type Department Care Team [...] on file Legal Sex Female 10:02 AM FILTER FILLER Gender Identity Not on file Sexual Orientation Not on file documented as of this encounter Plan of Treatment Upcoming Encounters Date Type Department Care Team (Late st Contact Info) Description 05/22/2025 10:10 AM CDT Office Visit [facility] [address] [place] [address] Vicki Maya PA [address] [place] [phone] 06/12/2025 8:00 AM CDT Office Visit [facility] [address] [place] [phone] December, REMOTE RUBY ON RAILS DEVELOPER [address] [place] [address] 09/24/2025 8:40 AM FILTER FILLER Office Visit [facility] [address] [place] [phone] Cary Monzon DO [address] [place] [address] documented as of this encounter Visit Diagnoses Not on filedocumented in this encounter Care Teams Link Knitting Machine Operator Relationship Specialty Start Date End Date Cary Monzon DO [address] [place] [address] PCP - General Family Practice 10/28/11 documented as of this encounter
--- OUTSIDE RECORDS SUMMARY | 2025-05-14 22:45 | XMS_ITS | Encounter Summary ---
Author Organization [facility] Address [address] [place] [address] Care Team Providers Care Steam Plant Records Clerk Name Role Phone Cary Monzon DO Primary Care Provider Encounter Details Date Type Department Care Team (Latest Contact Info) Description 11/07/2006 Outpatient Historical [facility] [place] [address] [place] [phone] Ovidio Tompkins MD NO ADDRESS ON FILE Failure to Thrive (Primary Dx) Social History Tobacco Use Types Packs/Day Years Used Date Smoking Tobacco: Never Assessed Comments Unknown Sex and Gender Information Value Date Recorded Sex Assigned at Not on file Legal Sex Female 3:37 AM ADJUNCT COMMUNICATIONS FACULTY MEMBER Gender Identity Not on file Sexual Orientation [...] R/O COVID-19 09/17/2020 09/17/2020 09/19/2020 3:30 AM ADJUNCT COMMUNICATIONS FACULTY MEMBER documented as of this encounter Care Teams Steam Plant Records Clerk Relationship Specialty Start Date End Date Cary Monzon DO [address] [place] [address] PCP - General Family Practice 10/28/11 documented as of this encounter
--- OUTSIDE RECORDS SUMMARY | 2025-05-14 22:46 | XMS_ITS | Encounter Summary ---
Author Organization [facility] Address [address] [place] [address] Care Team Providers Care Unemployment Specialist Name Role Phone Cary Monzon DO Primary Care Provider Encounter Details Date Type Department Care Team (Latest Contact Info) Description 01/24/2006 Outpatient Historical [facility] [place] [address] [place] [phone] Ovidio Tompkins MD NO ADDRESS ON FILE Unspecified Anemia (Primary Dx) Social History Tobacco Use Types Packs/Day Years Used Date Smoking Tobacco: Never Assessed Comments Unknown Sex and Gender Information Value Date Recorded Sex Assigned at Not on file Legal Sex Female 3:37 AM LAND SURVEYING PARTY CHIEF Gender Identity Not on file Sexual Orientation Not on file documented as of this encounter Plan of Treatment Not on file documented as of this encounter Visit Diagnoses Diagnosis Anemia, unspecified- Primary documented in this encounter Additional Health Concerns Infection Onset Date Last Indicated Resolved Time R/O COVID-19 05/26/2020 05/26/2020 05/28/2020 2:15 AM CDT R/O COVID-19 09/17/2020 09/17/2020 09/19/2020 3:30 AM LAND SURVEYING PARTY CHIEF documented as of this encounter Care Teams Unemployment Specialist Relationship Specialty Start Date End Date Cary Monzon DO [address] [place] [address] PCP - General Family Practice 10/28/11 documented as of this encounter
--- OUTSIDE RECORDS SUMMARY | 2025-05-14 22:46 | XMS_ITS | Encounter Summary ---
Author Organization [facility] Address [address] [place] [address] Care Team Providers Care Supervisor Receiving And Processing Name Role Phone NaCary bautista Primary Care Provider Encounter Details Date Type Department Care Team (Late st Contact Info) Description 2005 Emergency [facility] Emergency Department [address] [place] [address] Roverto Patel DO NO ADDRESS ON FILE ESOPHAGEAL REFLUX (Primary Dx) Social History Tobacco Use Types Packs/Day Years Used Date Smoking Tobacco: Never Assessed Comments Unknown Sex and Gender Information Value Date Recorded Sex Assigned at Not on file Legal Sex Female 3:37 AM ENGINE LATHE SET UP OPERATOR Gender Identity Not on file Sexual [...] COM Fi nal Result Performing Organization Address [facility] Phone Number INTERFACE SYSTEM Refer to clinic/hospital department * (ABNORMAL) CBC WITH DIFFERENTIAL (2005 6:17 PM CDT) Pathologist [facility] Emergency Department RBC 5.18 3.00 - 6.20 Mil/ul INTERFACE [...] HEMATOLOGY ORDERABLES Final Result Performing Organization Address [facility] Phone Number INTERFACE SYSTEM Refer to clinic/hospital department * (ABNORMAL) BASIC METABOLIC PANEL (2005 6:17 PM CDT) Pathologist [facility] Emergency Department GLUCOSE 91 60 - 100 mg/dL INTERFACE [...] R/O COVID-19 09/17/2020 09/17/2020 09/19/2020 3:30 AM ENGINE LATHE SET UP OPERATOR documented as of this encounter Care Teams Supervisor Receiving And Processing Relationship Specialty Start Date End Date Cary Monzon DO [address] [place] [phone] PCP - General Family Practice 10/28/11 documented as of this encounter
--- OUTSIDE RECORDS SUMMARY | 2025-05-14 22:47 | XMS_ITS | Encounter Summary ---
Author Organization [facility] Address [address] [place] [address] Care Team Providers Care Fire Fighter Airport Name Role Phone Cary Monzon DO Primary Care Provider Encounter Details Date Type Department Care Team (Latest Contact Info) Description 2005 Outpatient Historical [facility] [address] [place] [phone] Ovidio Tompkins MD NO ADDRESS ON FILE Routine Child Health Exam (Primary Dx); Esophageal Reflux Social History Tobacco Use Types Packs/Day Years Used Date Smoking Tobacco: Never Assessed Comments Unknown Sex and Gender Information Value Date Recorded Sex Assigned at Not on file Legal Sex Female 3:37 AM BAKERY PRODUCTS CHECKER Gender Identity Not on file Sexual Orientation [...] R/O COVID-19 09/17/2020 09/17/2020 09/19/2020 3:30 AM BAKERY PRODUCTS CHECKER documented as of this encounter Care Teams Fire Fighter Airport Relationship Specialty Start Date End Date Cary Monzon DO [address] [place] [address] PCP - General Family Practice 10/28/11 documented as of this encounter
--- OUTSIDE RECORDS SUMMARY | 2025-05-14 22:47 | XMS_ITS | Encounter Summary ---
Author Organization [facility] Address [address] [place] [address] Care Team Providers Care Counter Hand Name Role Phone Cary Monzon Primary Care Provider +1- [phone] Encounter Details Date Type Department Care Team (Late st Contact Info) Description 05/13/2025 Orders Only [facility] Health Information Management [place] [address] [place] [address] Provider, Abstract NO ADDRESS ON FILE Social [...] on file Legal Sex Female 10:02 AM REAMING MACHINE OPERATOR FOR PLASTIC Gender Identity Not on file Sexual Orientation Not on file documented as of this encounter Plan of Treatment Upcoming Encounters Date Type Department Care Team (Late st Contact Info) Description 05/22/2025 10:10 AM CDT Office Visit [facility] [address] [place] [address] Vicki Maya PA [address] [place] [address] 06/12/2025 8:00 AM CDT Office Visit [facility] [address] [place] [address] Chavez, December, RETAIL MERCHANDISING MANAGER [address] [place] [address] 09/24/2025 8:40 AM REAMING MACHINE OPERATOR FOR PLASTIC Office Visit [facility] [address] [place] [phone] Cary Monzon DO [address] [place] [address] documented as of this encounter Procedures Procedure Name Priority Date/Time Associated Diagnosis Comments COMPREHENSIVE METABOLIC PANEL Routine 05/10/2025 12:13 PM CDT documented in this encounter Results * COMPREHENSIVE METABOLIC PANEL (05/10/2025 12:13 PM CDT) Blood us Abstract Provider CHEMISTRY ORDERABLES Final Res ult documented in this encounter Visit Diagnoses Not on filedocumented in this encounter Care Teams Counter Hand Relationship Specialty Start Date End Date Cary Monzon DO [address] [place] [address] PCP - General Family Practice 10/28/11 documented as of this encounter
--- OUTSIDE RECORDS SUMMARY | 2025-05-14 22:47 | XMS_ITS | Encounter Summary ---
Author Organization [facility] Address [address] [place] [address] Care Team Providers Care Customer Counter Representative Name Role Phone Cary Monzon DO Primary Care Provider Encounter Details Date Type Department Care Team (Latest Contact Info) Description 01/18/2006 Outpatient Historical [facility] [address] [place] [address] Ovidio Tompkins MD NO ADDRESS ON FILE Routine Child Health Exam (Primary Dx) Social History Tobacco Use Types Packs/Day Years Used Date Smoking Tobacco: Never Assessed Comments Unknown Sex and Gender Information Value Date Recorded Sex Assigned at Not on file Legal Sex Female 3:37 AM RETAIL PLANNER Gender Identity Not on file Sexual Orientation [...] R/O COVID-19 09/17/2020 09/17/2020 09/19/2020 3:30 AM RETAIL PLANNER documented as of this encounter Care Teams Customer Counter Representative Relationship Specialty Start Date End Date Cary Monzon DO [address] [place] [address] PCP - General Family Practice 10/28/11 documented as of this encounter
--- OUTSIDE RECORDS SUMMARY | 2025-05-14 22:47 | XMS_ITS | Encounter Summary ---
Author Organization [facility] Address [address] [place] [address] Care Team Providers Care Elementary Assistant Principal Name Role Phone Cary Monzon DO Primary Care Provider [phone]- [phone] Encounter Details Date Type Department Care Team (Latest Contact Info) Description 04/18/2006 Outpatient Historical [facility] [place] [address] [place] [address] Ovidio Tompkins MD NO ADDRESS ON FILE Routine Child Health Exam (Primary Dx); Unspecified Anemia Social History Tobacco Use Types Packs/Day Years Used Date Smoking Tobacco: Never Assessed Comments Unknown Sex and Gender Information Value Date Recorded Sex Assigned at Not on file Legal Sex Female 3:37 AM CHEMICAL SUPERVISOR Gender Identity Not on file Sexual Orientation [...] R/O COVID-19 09/17/2020 09/17/2020 09/19/2020 3:30 AM CHEMICAL SUPERVISOR documented as of this encounter Care Teams Elementary Assistant Principal Relationship Specialty Start Date End Date Cary Monzon DO [address] [place] [address] PCP - General Family Practice 10/28/11 documented as of this encounter
--- OUTSIDE RECORDS SUMMARY | 2025-05-14 22:47 | XMS_ITS | Encounter Summary ---
Author Organization [facility] Address [address] [place] [address] Care Team Providers Care Mixed Crop And Livestock Farmer Name Role Phone Cary Monzon DO Primary Care Provider [phone] Encounter Details Date Type Department Care Team (Latest Contact Info) Description 2005 Outpatient Historical [facility] [address] [place] [phone] Ovidio Tompkins MD NO ADDRESS ON FILE FEVER (Primary Dx) Social History Tobacco Use Types Packs/Day Years Used Date Smoking Tobacco: Never Assessed Comments Unknown Sex and Gender Information Value Date Recorded Sex Assigned at Not on file Legal Sex Female 3:37 AM THEATRE ARTS PROFESSOR Gender Identity Not on file Sexual [...] R/O COVID-19 09/17/2020 09/17/2020 09/19/2020 3:30 AM THEATRE ARTS PROFESSOR documented as of this encounter Care Teams Mixed Crop And Livestock Farmer Relationship Specialty Start Date End Date Cary Monzon DO [address] [place] [address] PCP - General Family Practice 10/28/11 documented as of this encounter
--- OUTSIDE RECORDS SUMMARY | 2025-05-14 22:47 | XMS_ITS | Encounter Summary ---
Author Organization [facility] Address [address] [place] [address] Care Team Providers Care Control Systems Designer Name Role Phone NaCary bautista Primary Care Provider [phone]- [phone] Encounter Details Date Type Department Care Team (Latest Contact Info) Description 2005 Outpatient Historical [facility] [address] [place] [address] Wm Barrett MD [address] [place] [phone] FAILURE TO THRIVE (Primary Dx) Social History Tobacco Use Types Packs/Day Years Used Date Smoking Tobacco: Never Assessed Comments Unknown Sex and Gender Information Value Date Recorded Sex Assigned at Not on file Legal Sex Female 3:37 AM FLOOR POLISHER Gender Identity Not on file Sexual Orientation [...] R/O COVID-19 09/17/2020 09/17/2020 09/19/2020 3:30 AM FLOOR POLISHER documented as of this encounter Care Teams Control Systems Designer Relationship Specialty Start Date End Date Cary Monzon DO [address] [place] [address] PCP - General Family Practice 10/28/11 documented as of this encounter
--- OUTSIDE RECORDS SUMMARY | 2025-05-14 22:47 | XMS_ITS | Encounter Summary ---
Author Organization [facility] Address [address] [place] [address] Care Team Providers Care Fine Hairer Name Role Phone Cary Monzon DO Primary Care Provider [phone]- [phone] Encounter Details Date Type Department Care Team (Latest Contact Info) Description 2005 Outpatient Historical [facility] [address] [place] [address] Wm Barrett MD [address] [place] [phone] ESOPHAGEAL REFLUX (Primary Dx) Social History Tobacco Use Types Packs/Day Years Used Date Smoking Tobacco: Never Assessed Comments Unknown Sex and Gender Information Value Date Recorded Sex Assigned at Not on file Legal Sex Female 3:37 AM TOOL CARRIER Gender Identity Not on file Sexual Orientation Not on file documented as of this encounter Plan of Treatment Not on file documented as of this encounter Visit Diagnoses Diagnosis Esophageal reflux- Primary documented in this encounter Additional Health Concerns Infection Onset Date Last Indicated Resolved Time R/O COVID-19 05/26/2020 05/26/2020 05/28/2020 2:15 AM CDT R/O COVID-19 09/17/2020 09/17/2020 09/19/2020 3:30 AM TOOL CARRIER documented as of this encounter Care Teams Fine Hairer Relationship Specialty Start Date End Date Cary Monzon DO [address] [place] [address] PCP - General Family Practice 10/28/11 documented as of this encounter
--- OUTSIDE RECORDS SUMMARY | 2025-05-14 22:47 | XMS_ITS | Encounter Summary ---
Author Organization [facility] Address [address] [place] [address] Care Team Providers Care Dimension Quarry Supervisor Name Role Phone Cary Monzon DO Primary Care Provider Encounter Details Date Type Department Care Team (Latest Contact Info) Description 2005 Outpatient Historical [facility] [place] [address] [place] [phone] Ovidio Tompkins MD NO ADDRESS ON FILE Routine child health exam (Primary Dx) Social History Tobacco Use Types Packs/Day Years Used Date Smoking Tobacco: Never Assessed Comments Unknown Sex and Gender Information Value Date Recorded Sex Assigned at Not on file Legal Sex Female 3:37 AM MANAGEMENT SPECIALIST Gender Identity Not on file Sexual [...] R/O COVID-19 09/17/2020 09/17/2020 09/19/2020 3:30 AM MANAGEMENT SPECIALIST documented as of this encounter Care Teams Dimension Quarry Supervisor Relationship Specialty Start Date End Date Cary Monzon DO [address] [place] [address] PCP - General Family Practice 10/28/11 documented as of this encounter
--- OUTSIDE RECORDS SUMMARY | 2025-05-14 22:47 | XMS_ITS | Encounter Summary ---
Author Organization [facility] Address [address] [place] [address] Care Team Providers Care Photographic Specialist Name Role Phone NaCary bautista Primary Care Provider [phone]- [phone] Encounter Details Date Type Department Care Team (Latest Contact Info) Description 2005 Outpatient Historical [facility] [address] [place] [address] Wm Barrett MD [address] [place] [phone] FAILURE TO THRIVE (Primary Dx) Social History Tobacco Use Types Packs/Day Years Used Date Smoking Tobacco: Never Assessed Comments Unknown Sex and Gender Information Value Date Recorded Sex Assigned at Not on file Legal Sex Female 3:37 AM SUPERVISOR SPEECH Gender Identity Not on file Sexual Orientation [...] R/O COVID-19 09/17/2020 09/17/2020 09/19/2020 3:30 AM SUPERVISOR SPEECH documented as of this encounter Care Teams Photographic Specialist Relationship Specialty Start Date End Date Cary Monzon DO [address] [place] [address] PCP - General Family Practice 10/28/11 documented as of this encounter
--- OUTSIDE RECORDS SUMMARY | 2025-05-14 22:47 | XMS_ITS | Encounter Summary ---
Author Organization [facility] Address [address] [place] [address] Care Team Providers Care Coke Handling Supervisor Name Role Phone NaCary bautista Primary Care Provider Encounter Details Date Type Department Care Team (Latest Contact Info) Description 2005 Outpatient Historical [facility] [address] [place] [address] Wm Barrett MD [address] [place] [phone] UNSPECIFIED VIRAL INFECTION (Primary Dx) Social History Tobacco Use Types Packs/Day Years Used Date Smoking Tobacco: Never Assessed Comments Unknown Sex and Gender Information Value Date Recorded Sex Assigned at Not on file Legal Sex Female 3:37 AM SENIOR INSTRUCTOR Gender Identity Not on file Sexual Orientation [...] R/O COVID-19 09/17/2020 09/17/2020 09/19/2020 3:30 AM SENIOR INSTRUCTOR documented as of this encounter Care Teams Coke Handling Supervisor Relationship Specialty Start Date End Date Cary Monzon DO [address] [place] [address] PCP - General Family Practice 10/28/11 documented as of this encounter
--- OUTSIDE RECORDS SUMMARY | 2025-05-14 22:47 | XMS_ITS | Encounter Summary ---
Author Organization [facility] Address [address] [place] [address] Care Team Providers Care Piper Installer Name Role Phone Cary Monzon DO Primary Care Provider Encounter Details Date Type Department Care Team (Latest Contact Info) Description 2005 Outpatient Historical [facility] [place] [address] [place] [address] Ovidio Tompkins MD NO ADDRESS ON FILE Routine child health exam (Primary Dx); ESOPHAGEAL REFLUX Social History Tobacco Use Types Packs/Day Years Used Date Smoking Tobacco: Never Assessed Comments Unknown Sex and Gender Information Value Date Recorded Sex Assigned at Not on file Legal Sex Female 3:37 AM PUBLIC HEALTH Gender Identity Not on file Sexual Orientation [...] R/O COVID-19 09/17/2020 09/17/2020 09/19/2020 3:30 AM PUBLIC HEALTH documented as of this encounter Care Teams Piper Installer Relationship Specialty Start Date End Date Cary Monzon DO [address] [place] [address] PCP - General Family Practice 10/28/11 documented as of this encounter
--- OUTSIDE RECORDS SUMMARY | 2025-05-14 22:47 | XMS_ITS | Encounter Summary ---
Author Organization [facility] Address [address] [place] [address] Care Team Providers Care Drafter Electromechanical Name Role Phone Cary Monzon DO Primary Care Provider Encounter Details Date Type Department Care Team (Latest Contact Info) Description 2005 Outpatient Historical [facility] [address] [place] [phone] Ovidio Tompkins MD NO ADDRESS ON FILE Routine child health exam (Primary Dx); ESOPHAGEAL REFLUX Social History Tobacco Use Types Packs/Day Years Used Date Smoking Tobacco: Never Assessed Comments Unknown Sex and Gender Information Value Date Recorded Sex Assigned at Not on file Legal Sex Female 3:37 AM SALT OPERATOR Gender Identity Not on file Sexual [...] R/O COVID-19 09/17/2020 09/17/2020 09/19/2020 3:30 AM SALT OPERATOR documented as of this encounter Care Teams Drafter Electromechanical Relationship Specialty Start Date End Date Cary Monzon DO [address] [place] [address] PCP - General Family Practice 10/28/11 documented as of this encounter
--- OUTSIDE RECORDS SUMMARY | 2025-05-14 22:48 | XMS_ITS | Encounter Summary ---
Author Organization [facility] Address [address] [place] [address] Care Team Providers Care Weld Fitter Name Role Phone Cary Monzon DO Primary Care Provider [phone]- [phone] Encounter Details Date Type Department Care Team (Latest Contact Info) Description 2005 Outpatient Historical [facility] [address] [place] [address] Wm Barrett MD [address] [place] [phone] ESOPHAGEAL REFLUX (Primary Dx) Social History Tobacco Use Types Packs/Day Years Used Date Smoking Tobacco: Never Assessed Comments Unknown Sex and Gender Information Value Date Recorded Sex Assigned at Not on file Legal Sex Female 3:37 AM CARDIOTHORACIC ICU RN Gender Identity Not on file Sexual Orientation Not on file documented as of this encounter Plan of Treatment Not on file documented as of this encounter Visit Diagnoses Diagnosis Esophageal reflux- Primary documented in this encounter Additional Health Concerns Infection Onset Date Last Indicated Resolved Time R/O COVID-19 05/26/2020 05/26/2020 05/28/2020 2:15 AM CDT R/O COVID-19 09/17/2020 09/17/2020 09/19/2020 3:30 AM CARDIOTHORACIC ICU RN documented as of this encounter Care Teams Weld Fitter Relationship Specialty Start Date End Date Cary Monzon DO [address] [place] [phone] PCP - General Family Practice 10/28/11 documented as of this encounter
--- OUTSIDE RECORDS SUMMARY | 2025-05-14 22:48 | XMS_ITS | Encounter Summary ---
Author Organization [facility] Address [address] [place] [address] Care Team Providers Care Registrar Museum Name Role Phone Cary Monzon DO Primary Care Provider [phone]- [phone] Encounter Details Date Type Department Care Team (Latest Contact Info) Description 2005 Outpatient Historical [facility] [place] [address] [place] [phone] Ovidio Tompkins MD NO ADDRESS ON FILE FAILURE TO THRIVE (Primary Dx); ESOPHAGEAL REFLUX Social History Tobacco Use Types Packs/Day Years Used Date Smoking Tobacco: Never Assessed Comments Unknown Sex and Gender Information Value Date Recorded Sex Assigned at Not on file Legal Sex Female 3:37 AM SENIOR ASSET MANAGER Gender Identity Not on file Sexual [...] COVID-19 09/17/2020 09/17/2020 09/19/2020 3:30 AM SENIOR ASSET MANAGER documented as of this encounter Care Teams Registrar Museum Relationship Specialty Start Date End Date Cary Monzon DO [address] [place] [address] PCP - General Family Practice 10/28/11 documented as of this encounter
--- OUTSIDE RECORDS SUMMARY | 2025-05-14 22:48 | XMS_ITS | Encounter Summary ---
Author Organization [facility] Address [address] [place] [address] Care Team Providers Care Bulb Planter Name Role Phone NaCary bautista Primary Care Provider Encounter Details Date Type Department Care Team (Latest Contact Info) Description 2005 Outpatient Historical [facility] [address] [place] [address] Wm aBrrett MD [address] [place] [phone] Routine child health exam (Primary Dx) Social History Tobacco Use Types Packs/Day Years Used Date Smoking Tobacco: Never Assessed Comments Unknown Sex and Gender Information Value Date Recorded Sex Assigned at Not on file Legal Sex Female 3:37 AM POND WORKER Gender Identity Not on file Sexual Orientation Not on file documented as of this encounter Plan of Treatment Not on file documented as of this encounter Visit Diagnoses Diagnosis Routine child health exam- Primary Routine or child health check documented in this encounter Additional Health Concerns Infection Onset Date Last Indicated Resolved Time R/O COVID-19 05/26/2020 05/26/2020 05/28/2020 2:15 AM CDT R/O COVID-19 09/17/2020 09/17/2020 09/19/2020 3:30 AM POND WORKER documented as of this encounter Care Teams Bulb Planter Relationship Specialty Start Date End Date Cary Monzon DO [address] [place] [address] PCP - General Family Practice 10/28/11 documented as of this encounter
--- OUTSIDE RECORDS SUMMARY | 2025-05-14 22:48 | XMS_ITS | Encounter Summary ---
Author Organization [facility] Address [address] [place] [address] Care Team Providers Care Account Executive Sales Representative Name Role Phone Cary Monzon DO Primary Care Provider +1- [phone] Encounter Details Date Type Department Care Team (Latest Contact Info) Description 2005 Outpatient Historical [facility] [address] [place] [address] Wm Barrett MD [address] [place] [phone] ESOPHAGEAL REFLUX (Primary Dx) Social History Tobacco Use Types Packs/Day Years Used Date Smoking Tobacco: Never Assessed Comments Unknown Sex and Gender Information Value Date Recorded Sex Assigned at Not on file Legal Sex Female 3:37 AM SPIN TANK TENDER Gender Identity Not on file Sexual Orientation Not on file documented as of this encounter Plan of Treatment Not on file documented as of this encounter Visit Diagnoses Diagnosis Esophageal reflux- Primary documented in this encounter Additional Health Concerns Infection Onset Date Last Indicated Resolved Time R/O COVID-19 05/26/2020 05/26/2020 05/28/2020 2:15 AM CDT R/O COVID-19 09/17/2020 09/17/2020 09/19/2020 3:30 AM SPIN TANK TENDER documented as of this encounter Care Teams Account Executive Sales Representative Relationship Specialty Start Date End Date Cary Monzon DO [address] [place] [phone] PCP - General Family Practice 10/28/11 documented as of this encounter
--- OUTSIDE RECORDS SUMMARY | 2025-05-14 22:48 | XMS_ITS | Encounter Summary ---
Author Organization [facility] Address [address] [place] [address] Care Team Providers Care Laser Beam Trim Operator Name Role Phone NaCary bautista Primary Care Provider [phone]- [phone] Encounter Details Date Type Department Care Team (Late st Contact Info) Description 2005 Inpatient Historical [facility] IN BED Ovidio Tompkins MD NO ADDRESS ON FILE FAILURE TO THRIVE (Primary Dx) Social History Tobacco Use Types Packs/Day Years Used Date Smoking Tobacco: Never Assessed Comments Unknown Sex and Gender Information Value Date Recorded Sex Assigned at Not on file Legal Sex Female 3:37 AM REVENUE STAMP CLERK Gender Identity Not on file Sexual [...] ORDERABLES Final Resul t Performing Organization Address [facility] Phone Number INTERFACE SYSTEM Refer to clinic/hospital department * URINALYSIS MICROSCOPY ONLY (2005 2:42 PM CDT) WBC URINE None Seen 0 - 2 INTERFACE SYSTEM RBC UA None Seen 0 - 2 INTERFACE SYSTEM HYALINE CAST None Seen 0 - 2 INTERFA CE SYSTEM 2005 2:42 PM CDT us Ovidio Tompkins MD URINE ORDERABLES Final Resul t Performing Organization Address [facility] Phone Number INTERFACE SYSTEM Refer to clinic/hospital department * T4 FREE (2005 2:42 PM CDT) T4 FREE 1.40 0.89 - 1.76 ng/dL INTERFACE SYSTEM Comment: As of 05 at 3:00 p.m. [facility] has changed the methodology for Free T4, and with this change the reference range has changed from 0.71-1.85 to 0.89-1.76 ng/dl. 2005 2:42 PM CDT Ovidio Tompkins MD CHEMISTRY ORDERABLES Final R esult Performing Organization Address [facility] Phone Number INTERFACE SYSTEM Refer to clinic/hospital department * TSH (2005 2:42 PM CDT) TSH 2.751 0.350 - 5.500 uIU/ml INTERFACE SYSTEM Comment: As of 05 at 3:00 p.mLong [facility] has changed the methodology for TSH, and with this change the reference range has changed from 0.49-4.67 to 0.35-5.5 uIU/ml. 2005 2:42 PM CDT Ovidio Tompkins MD CHEMISTRY ORDERABLES Final R esult Performing Organization Address [facility] Phone Number INTERFACE SYSTEM Refer [...] COM Fi nal Result Performing Organization Address [facility] Phone Number INTERFACE SYSTEM Refer [...] HEMATOLOGY ORDERABLES Final Result Performing Organization Address [facility] Phone Number INTERFACE SYSTEM Refer to clinic/hospital department * (ABNORMAL) AST (2005 2:42 PM CDT) AST 46(H) 14 - 36 IU/L INTERFACE SYSTEM 2005 2:42 PM CDT us Ovidio Tompkins MD CHEMISTRY ORDERABLES Final R esult Performing Organization Address [facility] Phone Number INTERFACE SYSTEM Refer [...] R/O COVID-19 09/17/2020 09/17/2020 09/19/2020 3:30 AM REVENUE STAMP CLERK documented as of this encounter Care Teams Laser Beam Trim Operator Relationship Specialty Start Date End Date Cary Monzon DO [address] [place] [address] PCP - General Family Practice 10/28/11 documented as of this encounter
--- OUTSIDE RECORDS SUMMARY | 2025-05-14 22:48 | XMS_ITS | Encounter Summary ---
Author Organization [facility] Address [address] [place] [address] Care Team Providers Care Maintenance Machine Repairer Name Role Phone Cary Monzon DO Primary Care Provider [phone]- [phone] Encounter Details Date Type Department Care Team (Latest Contact Info) Description 2005 Outpatient Historical [facility] [address] [place] [phone] Ovidio Tompkins MD NO ADDRESS ON FILE UNSPECIFIED VIRAL INFECTION (Primary Dx); IMPACTED CERUMEN Social History Tobacco Use Types Packs/Day Years Used Date Smoking Tobacco: Never Assessed Comments Unknown Sex and Gender Information Value Date Recorded Sex Assigned at Not on file Legal Sex Female 3:37 AM TEACHER INSTRUMENTAL Gender Identity Not on file Sexual Orientation [...] R/O COVID-19 09/17/2020 09/17/2020 09/19/2020 3:30 AM TEACHER INSTRUMENTAL documented as of this encounter Care Teams Maintenance Machine Repairer Relationship Specialty Start Date End Date Cary Monzon DO [address] [place] [address] PCP - General Family Practice 10/28/11 documented as of this encounter
--- OUTSIDE RECORDS SUMMARY | 2025-05-14 22:48 | XMS_ITS | Encounter Summary ---
Author Organization [facility] Address [address] [place] [address] Care Team Providers Care Stage Builder Name Role Phone Cary Monzon DO Primary Care Provider [phone]- [phone] Encounter Details Date Type Department Care Team (Latest Contact Info) Description 2005 Outpatient Historical [facility] [address] [place] [address] Wm Barrett MD [address] [place] [phone] ESOPHAGEAL REFLUX (Primary Dx) Social History Tobacco Use Types Packs/Day Years Used Date Smoking Tobacco: Never Assessed Comments Unknown Sex and Gender Information Value Date Recorded Sex Assigned at Not on file Legal Sex Female 3:37 AM FRONT TENDER Gender Identity Not on file Sexual Orientation Not on file documented as of this encounter Plan of Treatment Not on file documented as of this encounter Visit Diagnoses Diagnosis Esophageal reflux- Primary documented in this encounter Additional Health Concerns Infection Onset Date Last Indicated Resolved Time R/O COVID-19 05/26/2020 05/26/2020 05/28/2020 2:15 AM CDT R/O COVID-19 09/17/2020 09/17/2020 09/19/2020 3:30 AM FRONT TENDER documented as of this encounter Care Teams Stage Builder Relationship Specialty Start Date End Date Cary Monzon DO [address] [place] [phone] PCP - General Family Practice 10/28/11 documented as of this encounter
--- OUTSIDE RECORDS SUMMARY | 2025-05-14 22:48 | XMS_ITS | Encounter Summary ---
Author Organization [facility] Address [address] [place] [address] Care Team Providers Care Child Adolescent Psychiatrist Name Role Phone Cary Monzon DO Primary Care Provider Encounter Details Date Type Department Care Team (Latest Contact Info) Description 2005 Outpatient Historical [facility] [place] [address] [place] [phone] Ovidio Tompkins MD NO ADDRESS ON FILE Feeding problem (Primary Dx); ESOPHAGEAL REFLUX Social History Tobacco Use Types Packs/Day Years Used Date Smoking Tobacco: Never Assessed Comments Unknown Sex and Gender Information Value Date Recorded Sex Assigned at Not on file Legal Sex Female 3:37 AM ASSISTANT CHILD CARE TEACHER Gender Identity Not on file Sexual Orientation [...] R/O COVID-19 09/17/2020 09/17/2020 09/19/2020 3:30 AM ASSISTANT CHILD CARE TEACHER documented as of this encounter Care Teams Child Adolescent Psychiatrist Relationship Specialty Start Date End Date Cary Monzon DO [address] [place] [address] PCP - General Family Practice 10/28/11 documented as of this encounter
--- OUTSIDE RECORDS SUMMARY | 2025-05-14 22:48 | XMS_ITS | Encounter Summary ---
Author Organization [facility] Address [address] [place] [address] Care Team Providers Care Inspector Material Disposition Name Role Phone Cary Monzon DO Primary Care Provider [phone]- [phone] Encounter Details Date Type Department Care Team (Latest Contact Info) Description 2005 Outpatient Historical [facility] [address] [place] [address] Wm Barrett MD [address] [place] [phone] ESOPHAGEAL REFLUX (Primary Dx) Social History Tobacco Use Types Packs/Day Years Used Date Smoking Tobacco: Never Assessed Comments Unknown Sex and Gender Information Value Date Recorded Sex Assigned at Not on file Legal Sex Female 3:37 AM WELL SERVICES OPERATOR Gender Identity Not on file Sexual Orientation Not on file documented as of this encounter Plan of Treatment Not on file documented as of this encounter Visit Diagnoses Diagnosis Esophageal reflux- Primary documented in this encounter Additional Health Concerns Infection Onset Date Last Indicated Resolved Time R/O COVID-19 05/26/2020 05/26/2020 05/28/2020 2:15 AM CDT R/O COVID-19 09/17/2020 09/17/2020 09/19/2020 3:30 AM WELL SERVICES OPERATOR documented as of this encounter Care Teams Inspector Material Disposition Relationship Specialty Start Date End Date Cary Monzon DO [address] [place] [phone] PCP - General Family Practice 10/28/11 documented as of this encounter
--- OUTSIDE RECORDS SUMMARY | 2025-05-14 22:49 | XMS_ITS | Encounter Summary ---
Author Organization [facility] Address [address] [place] [address] Care Team Providers Care Master Electrician Name Role Phone Na Cary L DO Primary Care Provider Encounter Details Date Type Department Care Team (Latest Contact Info) Description 2005 Outpatient Historical [facility] [address] [place] [address] Wm Barrett MD [address] [place] [phone] REFLUX ESOPHAGITIS (Primary Dx) Social History Tobacco Use Types Packs/Day Years Used Date Smoking Tobacco: Never Assessed Comments Unknown Sex and Gender Information Value Date Recorded Sex Assigned at Not on file Legal Sex Female 3:37 AM CANCER REGISTRY MANAGER Gender Identity Not on file Sexual Orientation Not on file documented as of this encounter Plan of Treatment Not on file documented as of this encounter Visit Diagnoses Diagnosis Reflux esophagitis- Primary documented in this encounter Additional Health Concerns Infection Onset Date Last Indicated Resolved Time R/O COVID-19 05/26/2020 05/26/2020 05/28/2020 2:15 AM CDT R/O COVID-19 09/17/2020 09/17/2020 09/19/2020 3:30 AM CANCER REGISTRY MANAGER documented as of this encounter Care Teams Master Electrician Relationship Specialty Start Date End Date Cary Monzon DO [address] [place] [phone] PCP - General Family Practice 10/28/11 documented as of this encounter
--- NOTE | 2025-05-14 23:19 | W.ED.FEMALGU ---
HPI - Female Genitourinary General: Chief complaint: Urogenital-Female Stated complaint: bleeding Time Seen by Provider: 05/14/25 22:30 Source: patient and family Mode of arrival: ambulatory Limitations: no limitations History of Present Illness: Patient is a 20-year-old female at approximately 10w3d here after she had a small amount of right red vaginal bleeding a few hours ago-quantifies as maybe a teaspoon or two. She states bleeding has since subsided. She is not having any pain or cramping. Intrauterine has been confirmed on ultrasound-last ultrasound was performed here just 3 days ago. She did have a small subchorionic hemorrhage. Patient states she did see her OB provider today and was diagnosed with a UTI. She was prescribed antibiotics. She is not having any abdominal or flank pain. No fevers. No vomiting. MD elicited complaint: vaginal bleeding Onset (ago): hour(s) Severity: mild Vaginal discharge: none Vaginal bleeding: scant and bright red Exacerbating factors: none Relieving factors: none Associated symptoms: Reports no associated symptoms; Deny abdominal pain, headache(s) or nausea Treatment prior to arrival: none Patient : Yes Related Data Home Medications ?Medication ?Instructions ?Recorded ?Confirmed buspirone 5 mg tablet 5 mg PO TID 11/14/19 11/28/22 cetirizine 10 mg capsule 10 mg PO DAILY 11/14/19 11/28/22 diphenhydramine HCl 25 mg capsule 25 mg PO Q6H PRN allergies 11/14/19 11/28/22 (Benadryl) epinephrine 0.3 mg/0.3 mL 0.3 mg IM Q30M PRN unknown 11/14/19 11/28/22 injection, auto-injector loratadine 10 mg tablet 10 mg PO DAILY 11/14/19 11/28/22 mirtazapine 15 mg tablet (Remeron) 7.5 mg PO DAILY 11/14/19 11/28/22 risperidone 2 mg tablet (Risperdal) 2 mg PO DAILY 11/14/19 11/28/22 sertraline 50 mg tablet (Zoloft) 75 mg PO DAILY 11/14/19 11/28/22 ibuprofen 400 mg tablet 400 mg PO TID PRN Pain 11/22/19 11/28/22 ondansetron 4 mg disintegrating 4 mg PO Q8H PRN nausea/vomiting 11/22/19 11/28/22 tablet famotidine 20 mg tablet 20 mg PO BID 03/09/20 11/28/22 melatonin 3 mg tablet 3 mg PO BEDTIME 03/09/20 11/28/22 Previous Rx's ?Medication ?Instructions ?Recorded cam boot to left #1 ea 08/29/22 ASO to left #1 ea 10/12/22 prednisone 10 mg tablet 10 mg PO DIRECTED #65 tabs 02/14/24 triamcinolone acetonide 0.5 % 1 applic topical BID PRN Rash #30 02/14/24 topical cream grams Allergies Allergy/AdvReac Type Severity Reaction Status Date / Time adhesive tape Allergy Unknown Verified 05/14/25 22:37 Alpha-Gal Allergy ALGY-Anaphy Verified 05/14/25 22:37 (Rzcsymmzd-Iblfi-1,3-Gala laxis doxycycline Allergy vomit Verified 05/14/25 22:37 naproxen Allergy vomit Verified 05/14/25 22:37 Review of Systems Const: Denies: fever(s), chills, body aches, fatigue or malaise Card: Denies: chest pain Resp: Denies: dyspnea GI: Denies: abdominal pain, nausea, vomiting or change in bowel habits : Reports: vaginal bleeding; Denies: flank pain, difficulty voiding, dysuria, urinary frequency, urinary urgency, urinary hesitancy or pelvic pain Musc: Denies: neck pain, back pain, extremity pain, extremity swelling, joint pain, joint swelling or joint redness Skin/Breast: Denies: rash Neuro: Denies: headache(s), numbness in extremities, weakness in extremities or sensory changes PFSH ED PFSH: Medical History ADHD Bipolar 1 disorder Chronic sinusitis Tinnitus Nasal turbinate hypertrophy Deviated septum Allergic rhinitis Social History Smoking and tobacco/nicotine status: never used tobacco/nicotine Second hand smoke exposure: Yes Alcohol intake: never Substance/Drug Use: never Highest education level completed: 8th Grade Pets and animals: Yes Pets & animals: dog(s) Physical Exam Const: COMMON NORMALS: no acute distress, average body habitus, patient oriented x3, no limitations, healthy appearing, alert and well nourished GENERAL APPEARANCE: cooperative Resp: COMMON NORMALS: normal respiratory effort and clear to auscultation bilaterally AUSCULTATION: clear to auscultation bilaterally Cardio: COMMON NORMALS: regular rate and regular rhythm RATE: regular rate RHYTHM: regular rhythm GI: COMMON NORMALS: Normal to inspection, nondistended, normoactive bowel sounds present, Soft to palpation, non-tender, No hepatosplenomegaly present and no masses AUSCULTATION: Yes normoactive bowel sounds PALPATION: Yes Soft to palpation, No Tenderness to palpation present (GI) and Yes No hepatosplenomegaly present : COMMON NORMALS: Yes no CVA tenderness BLADDER/KIDNEY EXAM: Yes no CVA tenderness OTHER: bedside US showing a live/active intrauterine fetus with normal HR activity Back/Pelvis: COMMON NORMALS: no CVA tenderness Neuro: COMMON NORMALS: patient oriented x3 SENSORIUM/ORIENTATION: Yes alert Course Vital Signs: Vital signs: Vital Signs Temperature 98 F 05/14/25 22:33 Pulse Rate 95 05/14/25 22:33 Respiratory Rate 17 05/14/25 22:33 Blood Pressure 105/73 05/14/25 22:33 Pulse Oximetry 98 05/14/25 22:33 Oxygen Delivery Me thod Room Air 05/14/25 22:33 MDM - Female Medical Decision Making Patient is a 20-year-old female at approximately 10weeks here after she had an episode of 1 to 2 teaspoons of bright red vaginal bleeding. She is not having any ongoing bleeding. She is not having any pain or cramping. Patient just had labs performed here 3 days ago. H/H was normal-this is unlikely changed by her scant bleeding today thus not repeated. She has a known small chorionic hemorrhage-most likely the culprit of her bleeding today. Bedside ultrasound performed here showing a live intrauterine with normal activity. Blood type is O-. She was given RhoGAM prior to discharge. Recommend she follow-up with her OB provider later this week/early next week for re-evaluation. US was collected here and does look suspicious for UTI-she apparently was diagnosed with this earlier today at OB office and placed on abx. Recommend she fill these/start/finish entire course. She has no flank pain, fevers, or vomiting. Medical Records I reviewed the patient's medical records. Lab Data I reviewed the patient's lab results. Laboratory Results Urine Color Yellow (Yellow) 05/14/25 23:19 Urine Appearance Turbid (CLEAR) A 05/14/25 23:19 Urine pH 6.0 (5-7) 05/14/25 23:19 Ur Specific [place] 1.024 (1.005-1.030) 05/14/25 23:19 Urine Protein 3+ (Negative) A 05/14/25 23:19 Urine Glucose (UA) Negative (Normal) 05/14/25 23:19 Urine Ketones Trace (Negative) 05/14/25 23:19 Urine Blood 3+ (Negative) A 05/14/25 23:19 Urine Nitrate Negative (Negative) 05/14/25 23:19 Urine Bilirubin Negative (Negative) 05/14/25 23:19 Urine Urobilinogen 1.0 mg/dL (Negative) 05/14/25 23:19 Ur Leukocyte Esterase 3+ (Negative) A 05/14/25 23:19 Urine RBC 21-50 /hpf (0-2) H 05/14/25 23:19 Urine WBC >100 /hpf (0-5) H 05/14/25 23:19 Ur Squamous Epith Cells 0-5 /hpf (0-5) 05/14/25 23:19 Amorphous Sediment Not Reportable 05/14/25 23:19 Urine Bacteria 4+ /hpf (NONE) H 05/14/25 23:19 Hyaline Casts 25.25 /lpf 05/14/25 23:19 No radiology studies performed this visit ED provider radiology interpretation(s): beside US was performed by myself showing a live intrauterine fetus Discharge Plan Discharge Patient Disposition: Home Clinical Impression: First trimester bleeding Condition: Stable Prescriptions: No Action buspirone 5 mg tablet 5 mg PO TID cetirizine 10 mg capsule 10 mg PO DAILY diphenhydramine HCl [Benadryl] 25 mg capsule 25 mg PO Q6H PRN (Reason: allergies) epinephrine 0.3 mg/0.3 mL auto-injector 0.3 mg IM Q30M PRN (Reason: unknown) loratadine 10 mg tablet 10 mg PO DAILY mirtazapine [Remeron] 15 mg tablet 7.5 mg PO DAILY risperidone [Risperdal] 2 mg tablet 2 mg PO DAILY sertraline [Zoloft] 50 mg tablet 75 mg PO DAILY Rx Instructions: dose change. take 1 and 1/2 tabs to equal 75 mg daily ibuprofen 400 mg tablet 400 mg PO TID PRN (Reason: Pain) ondansetron 4 mg tablet,disintegrating 4 mg PO Q8H PRN (Reason: nausea/vomiting) (DME) cam boot to left See Rx Instructions .Route .MEDSUPPLY Qty: 1 0RF Rx Instructions: As directed (DME) ASO to left See Rx Instructions .Route .MEDSUPPLY Qty: 1 0RF Rx Instructions: As directed melatonin 3 mg Tablet 3 mg PO BEDTIME famotidine 20 mg Tablet 20 mg PO BID triamcinolone acetonide 0.5 % Cream 1 applic topical BID PRN (Reason: Rash) Qty: 30 0RF prednisone 10 mg tablet 10 mg PO DIRECTED Qty: 65 0RF Rx Instructions: see taper instructions Discharge Orders: Discharge ED (Routine); Ordered 05/14/25 Ordered By: Jannie Newman Referrals: Cary Monzon DO [Primary Care Provider, Family Practice] Patient Instructions: Patient Portal & Brit Instructions Activity Restrictions/Additional Instructions: As we discussed, bedside ultrasound was obtained here today showing a live intrauterine . Please follow-up with your OB provider later this week/early next week for re-evaluation. You indicated that you were diagnosed with a UTI by your OB provider and placed on antibiotics. Make sure you fill these and start as directed. You may return to the emergency department for onset of severe abdominal or pelvic pain, severe vaginal bleeding (soaking more than 1 pad an hour), lightheadedness/dizziness, generally feeling worse or unwell, or any other concerns you may have. Print Language: Congolese Coding Level of Care Code ED Plaster Patternmaker for [place] Florian
[2025-05-14 23:26] LABS: Glucose Urine UA Negative (Normal); Nitrate Urine Negative (Negative); Specific Gravity, Urine 1.024 (1.005-1.030)
[2025-05-14 23:28] LABS: Add Urine Microscopic? YES
[2025-05-15 00:13] VITALS: BP 104/54; PULSE 94; O2SAT 96
[2025-05-15 01:48] VITALS: BP 99/76; PULSE 78; O2SAT 96
== END 2025-05-15 00:30 | disposition home or self-care (01) ==
PROVIDERS: Emergency Provider Physician Assistant; PCP Family Medicine
DX: O20.9 Hemorrhage in early pregnancy, unspecified (principal); Z3A.10 10 weeks gestation of pregnancy
CPT/HCPCS: 81001; 87077; 87086; 87186; 96372; 99284; J2790

== ENCOUNTER 2025-05-18 21:07 | Inpatient (IN) | payer MEDICAID, SELFPAY ==
--- OUTSIDE RECORDS SUMMARY | 2019-01-18 06:42 | XMS_ITS | Continuity of Care Document ---
Author Organization [facility] [place] Address [address] [place] [address] Phone Care Team Providers Care Electronic Specialist Name Role Phone Unavailable Unavailable Unavailable Advance Directives Directive Yes / No Effective Date File Name No Information Encounters Encounter Description Practice Location Reason(s) For Visit Diagnoses Date Provider Providers Copied on Encounter [facility] [place], [address], [address], tel:[phone] [facility] No Information 0201 [id number] No Information Referring Provider: ISMA BURDEN L, [address] [place], [address]. tel:[phone] Family History Family Member Type Diagnosis Age At Onset Father Problem (finding) Marfan's Cousin Problem (finding) Marfan's Problem (finding) No family hist ory of Congenital Heart Disease Problem (finding) No family history of Di abetes Mellitus Problem (finding) No family hist ory of Cardiomyopathy - hypertrophic Problem (finding) No family hist ory of Cardiomyopathy - dilated Problem (finding) No family history of Cage dden Problem (finding) No family history of Ar rhythmia Problem (finding) No family history of Pr emature CAD Problem (finding) No family history of Hy pertension Payers Payer name Insurance type Covered alliance party ID Authoriza tion(s) [facility] [id number] Social History Type Description Quantity Date Captured Comments Alcohol Use Details Unknown Caffeine Use Details Unknown Tobacco Use Status No Information Smoking Status No Information Sex Female Vital Signs Date / Time: Height Weight BMI Pulse Rate Blood Pressure Temperature Respiratory Rate Body Surface Area Head Circumference BMI percentile Pulse Ox Inhaled Ox 11:47 AM 62.00 in 49.895 kg (110.00 lbs) 20.2 0 kg/m eter (2) 24 /min 1.48 meter(2) 60 Chief Complaint And Reason For Visit No Information History Of Present Illness Encounter Date Complaint History Of Prese nt Illness No Information Instructions Date Instruction Additional Infor mation No Information Assessments Type Assessment Date No Information
[2025-05-18 21:10] VITALS: BP 92/66; PULSE 138; TEMP 37.6; O2SAT 97
--- OUTSIDE RECORDS SUMMARY | 2025-05-18 21:13 | XMS_ITS | Encounter Summary ---
Author Organization [facility] Address [address] [place] [address] Care Team Providers Care Telecommunication Equipment Repairer Name Role Phone Cary Monzon DO Primary Care Provider Encounter Details Date Type Department Care Team (Latest Contact Info) Description 2005 Outpatient Historical [facility] [address] [place] [address] Wm Barrett MD [address] [place] [phone] ESOPHAGEAL REFLUX (Primary Dx) Social History Tobacco Use Types Packs/Day Years Used Date Smoking Tobacco: Never Assessed Comments Unknown Sex and Gender Information Value Date Recorded Sex Assigned at Not on file Legal Sex Female 3:37 AM DENTAL ASSISTANT Gender Identity Not on file Sexual Orientation Not on file documented as of this encounter Plan of Treatment Not on file documented as of this encounter Visit Diagnoses Diagnosis Esophageal reflux- Primary documented in this encounter Additional Health Concerns Infection Onset Date Last Indicated Resolved Time R/O COVID-19 05/26/2020 05/26/2020 05/28/2020 2:15 AM CDT R/O COVID-19 09/17/2020 09/17/2020 09/19/2020 3:30 AM DENTAL ASSISTANT documented as of this encounter Care Teams Telecommunication Equipment Repairer Relationship Specialty Start Date End Date Cary Monzon DO [address] [place] [phone] PCP - General Family Practice 10/28/11 documented as of this encounter
--- OUTSIDE RECORDS SUMMARY | 2025-05-18 21:13 | XMS_ITS | Encounter Summary ---
Author Organization [facility] Address [address] [place] [address] Care Team Providers Care Goat Herder Name Role Phone Cary Monzon DO Primary Care Provider Encounter Details Date Type Department Care Team (Latest Contact Info) Description 11/07/2006 Outpatient Historical [facility] [address] [place] [phone] Ovidio Tompkins MD NO ADDRESS ON FILE Failure to Thrive (Primary Dx) Social History Tobacco Use Types Packs/Day Years Used Date Smoking Tobacco: Never Assessed Comments Unknown Sex and Gender Information Value Date Recorded Sex Assigned at Not on file Legal Sex Female 3:37 AM ACOUSTIC INTELLIGENCE SPECIALIST Gender Identity Not on file Sexual [...] R/O COVID-19 09/17/2020 09/17/2020 09/19/2020 3:30 AM ACOUSTIC INTELLIGENCE SPECIALIST documented as of this encounter Care Teams Goat Herder Relationship Specialty Start Date End Date Cary Monzon DO [address] [place] [address] PCP - General Family Practice 10/28/11 documented as of this encounter
--- OUTSIDE RECORDS SUMMARY | 2025-05-18 21:13 | XMS_ITS | Encounter Summary ---
Author Organization [facility] Address [address] [place] [address] Care Team Providers Care Metal Sash Setter Name Role Phone Cary Monzon DO Primary Care Provider Encounter Details Date Type Department Care Team (Latest Contact Info) Description 01/24/2006 Outpatient Historical [facility] [place] [address] [place] [phone] Ovidio Tompkins MD NO ADDRESS ON FILE Unspecified Anemia (Primary Dx) Social History Tobacco Use Types Packs/Day Years Used Date Smoking Tobacco: Never Assessed Comments Unknown Sex and Gender Information Value Date Recorded Sex Assigned at Not on file Legal Sex Female 3:37 AM COLLAR BASTER Gender Identity Not on file Sexual Orientation Not on file documented as of this encounter Plan of Treatment Not on file documented as of this encounter Visit Diagnoses Diagnosis Anemia, unspecified- Primary documented in this encounter Additional Health Concerns Infection Onset Date Last Indicated Resolved Time R/O COVID-19 05/26/2020 05/26/2020 05/28/2020 2:15 AM CDT R/O COVID-19 09/17/2020 09/17/2020 09/19/2020 3:30 AM COLLAR BASTER documented as of this encounter Care Teams Metal Sash Setter Relationship Specialty Start Date End Date Cary Monzon DO [address] [place] [address] PCP - General Family Practice 10/28/11 documented as of this encounter
--- OUTSIDE RECORDS SUMMARY | 2025-05-18 21:13 | XMS_ITS | Encounter Summary ---
Author Organization [facility] Address [address] [place] [address] Care Team Providers Care Senior Cobol Developer Name Role Phone Cary Monzon DO Primary Care Provider Encounter Details Date Type Department Care Team (Latest Contact Info) Description 2005 Outpatient Historical [facility] [address] [place] [phone] Ovidio Tompkins MD NO ADDRESS ON FILE UNSPECIFIED VIRAL INFECTION (Primary Dx); IMPACTED CERUMEN Social History Tobacco Use Types Packs/Day Years Used Date Smoking Tobacco: Never Assessed Comments Unknown Sex and Gender Information Value Date Recorded Sex Assigned at Not on file Legal Sex Female 3:37 AM SHOE PARTS CASER Gender Identity Not on file Sexual Orientation [...] R/O COVID-19 09/17/2020 09/17/2020 09/19/2020 3:30 AM SHOE PARTS CASER documented as of this encounter Care Teams Senior Cobol Developer Relationship Specialty Start Date End Date Cary Monzon DO [address] [place] [address] PCP - General Family Practice 10/28/11 documented as of this encounter
--- OUTSIDE RECORDS SUMMARY | 2025-05-18 21:13 | XMS_ITS | Encounter Summary ---
Author Organization [facility] Address [address] [place] [address] Care Team Providers Care Aircraft Electrician Name Role Phone NaCary bautista Primary Care Provider +1- [phone] Encounter Details Date Type Department Care Team (Latest Contact Info) Description 2005 Outpatient Historical [facility] [address] [place] [address] Wm Barrett MD [address] [place] [phone] FAILURE TO THRIVE (Primary Dx) Social History Tobacco Use Types Packs/Day Years Used Date Smoking Tobacco: Never Assessed Comments Unknown Sex and Gender Information Value Date Recorded Sex Assigned at Not on file Legal Sex Female 3:37 AM MORTGAGE BRANCH MANAGER Gender Identity Not on file Sexual [...] R/O COVID-19 09/17/2020 09/17/2020 09/19/2020 3:30 AM MORTGAGE BRANCH MANAGER documented as of this encounter Care Teams Aircraft Electrician Relationship Specialty Start Date End Date Cary Monzon DO [address] [place] [address] PCP - General Family Practice 10/28/11 documented as of this encounter
--- OUTSIDE RECORDS SUMMARY | 2025-05-18 21:13 | XMS_ITS | Encounter Summary ---
Author Organization [facility] Address [address] [place] [address] Care Team Providers Care Setter Off Name Role Phone NaCary bautista Primary Care Provider Encounter Details Date Type Department Care Team (Latest Contact Info) Description 2005 Outpatient Historical [facility] [address] [place] [address] Wm Barrett MD [address] [place] [phone] Routine child health exam (Primary Dx) Social History Tobacco Use Types Packs/Day Years Used Date Smoking Tobacco: Never Assessed Comments Unknown Sex and Gender Information Value Date Recorded Sex Assigned at Not on file Legal Sex Female 3:37 AM DRY STARCH OPERATOR Gender Identity Not on file Sexual [...] R/O COVID-19 09/17/2020 09/17/2020 09/19/2020 3:30 AM DRY STARCH OPERATOR documented as of this encounter Care Teams Setter Off Relationship Specialty Start Date End Date Cary Monzon DO [address] [place] [address] PCP - General Family Practice 10/28/11 documented as of this encounter
--- OUTSIDE RECORDS SUMMARY | 2025-05-18 21:13 | XMS_ITS | Encounter Summary ---
Author Organization [facility] Address [address] [place] [address] Care Team Providers Care Cushion Builder Name Role Phone Cary Monzon DO Primary Care Provider +1- [phone] Encounter Details Date Type Department Care Team (Latest Contact Info) Description 2005 Outpatient Historical [facility] [place] [address] [place] [phone] Ovidio Tompkins MD NO ADDRESS ON FILE FAILURE TO THRIVE (Primary Dx); ESOPHAGEAL REFLUX Social History Tobacco Use Types Packs/Day Years Used Date Smoking Tobacco: Never Assessed Comments Unknown Sex and Gender Information Value Date Recorded Sex Assigned at Not on file Legal Sex Female 3:37 AM EXTENSION WORK INSTRUCTOR Gender Identity Not on file Sexual [...] R/O COVID-19 09/17/2020 09/17/2020 09/19/2020 3:30 AM EXTENSION WORK INSTRUCTOR documented as of this encounter Care Teams Cushion Builder Relationship Specialty Start Date End Date Cary Monzon DO [address] [place] [address] PCP - General Family Practice 10/28/11 documented as of this encounter
--- OUTSIDE RECORDS SUMMARY | 2025-05-18 21:13 | XMS_ITS | Encounter Summary ---
Author Organization [facility] Address [address] [place] [address] Care Team Providers Care Plant Operations Worker Name Role Phone Cary Monzon DO Primary Care Provider +1- [phone] Encounter Details Date Type Department Care Team (Latest Contact Info) Description [address] [facility] [address] [place] [address] Wm Barrett MD [address] [place] [phone] ESOPHAGEAL REFLUX (Primary Dx) Social History Tobacco Use Types Packs/Day Years Used Date Smoking Tobacco: Never Assessed Comments Unknown Sex and Gender Information Value Date Recorded Sex Assigned at Not on file Legal Sex Female 3:37 AM IMPLEMENTATION MANAGER Gender Identity Not on file Sexual Orientation Not on file documented as of this encounter Plan of Treatment Not on file documented as of this encounter Visit Diagnoses Diagnosis Esophageal reflux- Primary documented in this encounter Additional Health Concerns Infection Onset Date Last Indicated Resolved Time R/O COVID-19 05/26/2020 05/26/2020 05/28/2020 2:15 AM CDT R/O COVID-19 09/17/2020 09/17/2020 09/19/2020 3:30 AM IMPLEMENTATION MANAGER documented as of this encounter Care Teams Plant Operations Worker Relationship Specialty Start Date End Date Cary Monzon DO [address] [place] [phone] PCP - General Family Practice 10/28/11 documented as of this encounter
--- OUTSIDE RECORDS SUMMARY | 2025-05-18 21:13 | XMS_ITS | Encounter Summary ---
Author Organization [facility] Address [address] [place] [address] Care Team Providers Care Car Dumper Name Role Phone Cary Monzon DO Primary Care Provider Encounter Details Date Type Department Care Team (Latest Contact Info) Description 01/18/2006 Outpatient Historical [facility] [place] [address] [place] [phone] Ovidio Tompkins MD NO ADDRESS ON FILE Routine Child Health Exam (Primary Dx) Social History Tobacco Use Types Packs/Day Years Used Date Smoking Tobacco: Never Assessed Comments Unknown Sex and Gender Information Value Date Recorded Sex Assigned at Not on file Legal Sex Female 3:37 AM TOOL DESIGNER Gender Identity Not on file Sexual Orientation [...] COVID-19 09/17/2020 09/17/2020 09/19/2020 3:30 AM TOOL DESIGNER documented as of this encounter Care Teams Car Dumper Relationship Specialty Start Date End Date Cary Monzon DO [address] [place] [address] PCP - General Family Practice 10/28/11 documented as of this encounter
--- OUTSIDE RECORDS SUMMARY | 2025-05-18 21:13 | XMS_ITS | Encounter Summary ---
Author Organization [facility] Address [address] [place] [address] Care Team Providers Care Copier Operator Name Role Phone NaCary bautista Primary Care Provider +1- [phone] Encounter Details Date Type Department Care Team (Latest Contact Info) Description 2005 Outpatient Historical [facility] [address] [place] [address] Wm Barrett MD [address] [place] [address] [phone] FAILURE TO THRIVE (Primary Dx) Social History Tobacco Use Types Packs/Day Years Used Date Smoking Tobacco: Never Assessed Comments Unknown Sex and Gender Information Value Date Recorded Sex Assigned at Not on file Legal Sex Female 3:37 AM OPTOMETRIST OWNER Gender Identity Not on file Sexual Orientation [...] R/O COVID-19 09/17/2020 09/17/2020 09/19/2020 3:30 AM OPTOMETRIST OWNER documented as of this encounter Care Teams Copier Operator Relationship Specialty Start Date End Date Cary Monzon DO [address] [place] [address] PCP - General Family Practice 10/28/11 documented as of this encounter
--- OUTSIDE RECORDS SUMMARY | 2025-05-18 21:13 | XMS_ITS | Encounter Summary ---
Author Organization [facility] Address [address] [place] [address] Care Team Providers Care Interior Horticulturist Name Role Phone Cary Monzon DO Primary Care Provider [phone] Encounter Details Date Type Department Care Team (Latest Contact Info) Description 2005 Outpatient Historical [facility] [place] [address] [place] [phone] Ovidio Tompkins MD NO ADDRESS ON FILE Routine child health exam (Primary Dx) Social History Tobacco Use Types Packs/Day Years Used Date Smoking Tobacco: Never Assessed Comments Unknown Sex and Gender Information Value Date Recorded Sex Assigned at Not on file Legal Sex Female 3:37 AM MUTUEL DEPARTMENT MANAGER Gender Identity Not on file Sexual [...] R/O COVID-19 09/17/2020 09/17/2020 09/19/2020 3:30 AM MUTUEL DEPARTMENT MANAGER documented as of this encounter Care Teams Interior Horticulturist Relationship Specialty Start Date End Date Cary Monzon DO [address] [place] [address] PCP - General Family Practice 10/28/11 documented as of this encounter
--- OUTSIDE RECORDS SUMMARY | 2025-05-18 21:13 | XMS_ITS | Encounter Summary ---
Author Organization [facility] Address [address] [place] [address] Care Team Providers Care Lab Rn Name Role Phone Cary Monzon DO Primary Care Provider Encounter Details Date Type Department Care Team (Latest Contact Info) Description 08/09/2006 Outpatient Historical [facility] [place] [address] [place] [phone] Ovidio Tompkins MD NO ADDRESS ON FILE Routine Child Health Exam (Primary Dx) Social History Tobacco Use Types Packs/Day Years Used Date Smoking Tobacco: Never Assessed Comments Unknown Sex and Gender Information Value Date Recorded Sex Assigned at Not on file Legal Sex Female 3:37 AM CORRECTIVE THERAPY AIDE TEACHER Gender Identity Not on file Sexual [...] R/O COVID-19 09/17/2020 09/17/2020 09/19/2020 3:30 AM CORRECTIVE THERAPY AIDE TEACHER documented as of this encounter Care Teams Lab Rn Relationship Specialty Start Date End Date Cary Monzon DO [address] [place] [address] PCP - General Family Practice 10/28/11 documented as of this encounter
--- OUTSIDE RECORDS SUMMARY | 2025-05-18 21:13 | XMS_ITS | Clinical Summary ---
Author Organization [facility] Address [address] [facility] Attn: Epic Prelude ADT [place] [address] Care Team Providers Care Perinatal Educator Name Role Phone Cary Monzon DO Primary Care Provider Allergies Active Allergy Reactions Criticality Noted Date Comments Adhesive Itching Low 07/18/2012 Alpha-Gal (Fleslzzku-Fydrb-1,3-Galact ose) Hives High 06/17/2022 Benztropine Unknown 02/13/2023 [...] daily. 60 Gram 6 025 Active PNV,calcium 84-yayh-zawai acid (PREPLUS) 27 mg iron- 1 mg [...] Department Care Team Description 05/13/2025 Orders Only [facility] Health Information Management [place] [address] [place] [address] Provider, Abstract 05/07/2025 External Device Data ST[place] ABSTRACTION Provider, Abstract 05/06/2025 External Device Data [place] ABSTRACTION Provider, Abstract 05/06/2025 Refill [facility] [address] [place] [address] Cary Monzon, Generalized anxiety disorder 04/28/2025 1:40 PM CDT Office Visit [facility] [address] [place] [address] Chavezdecember, LEAD SIMULATION MODELING ENGINEER Missed period (Primary Dx); confirmed by positive urine test 04/02/2025 Orders Only [facility] [address] [place] [address] Cary Monzon DO Left knee injury, initial encounter (Primary Dx) 03/26/2025 External Device Data ST[place] ABSTRACTION Provider, Abstract 03/18/2025 External Device Data ST[place] ABSTRACTION Provider, Abstract 03/13/2025 8:40 AM CDT Office Visit [facility] [address] [place] [address] Cary Monzon DO Generalized anxiety disorder (Primary Dx); Panic attacks; Gastroesophageal reflux disease without esophagitis; 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; Irritable bowel syndrome with both constipation and diarrhea; Bipolar disorder, in full remission, most recent episode depressed 03/03/2025 11:40 AM CDT Office Visit [facility] [address] [place] [address] Chavez, December, LEAD SIMULATION MODELING ENGINEER Nausea and vomiting, unspecified vomiting type (Primary Dx); Sore throat; Acute cough; Rash 03/03/2025 Refill [facility] [address] [place] [address] Cary Monzon DO from Last 3 Months [...] PERTUSSIS, HEPATITIS B, AND INACTIVATED POLIOVIRUS VACCINE (SETC-GEQH-VMH), 0.5ML, IM 04/18/2006,2005,2005,04/06 (VARIVAX)(12 MOS UP)VARICELL A [...] on file Legal Sex Female 10:02 AM WHEEL AND PINION INSPECTOR Gender Identity Not on file Sexual [...] Care Team (Late st Contact Info) Description 06/12/2025 8:00 AM CDT Office Visit [facility] [address] [place] [phone] December, LEAD SIMULATION MODELING ENGINEER [address] [place] [phone] 09/24/2025 8:40 AM WHEEL AND PINION INSPECTOR Office Visit [facility] [address] [place] [phone] NaCary Emil, DO [address] [place] [phone] 02/12/2026 10:10 AM CDT Office Visit [facility] [place] [address] [place] [address] Vicki Maya PA [address] [place] [address] Health Maintenance Due Date Last Done Comments [...] history exists Medical Devices Implanted Type Area Launch Steward Device Identifier Shelf Expiration Date Model / Serial / Lot Capsule Aldridge Ph Test [id number] - [id number] Implanted:Qty : 1 on 10/22/2020 by Alden Price MD Other N/A: Esophagus [employer] COVIDIEN ground helper [address] railway. GIVEN 03/13/2022 [id number] / / [id number] Procedures Procedure Name Priority Date/Time Associated Diagnosis [...] QUAL URINE POC Positive(A ) Negative, Indeterminate [facility] INTERNAL KIT QC POC Pass Pass [facility] KIT LOT NUMBER POC [id number] [facility] KIT EXP DATE POC [id number] [facility] Urine 04/28/2025 1:44 PM CDT December LEAD SIMULATION MODELING ENGINEER POINT OF CARE TESTING Final Resu lt Performing Organization Address City/[facility]/ZIP Co de Phone Number [facility] CLIA# [id number] [address] [place] [address] * POC RAPID STREP A ANTIGEN (03/03/2025 12:10 PM CDT) RAPID STREP POC Negative Negative, Indeterminate [facility] INTERNAL KIT QC POC Pass Pass [facility] KIT LOT NUMBER POC [id number] [facility] KIT EXP DATE POC [id number] [facility] READ METHOD POC Visual [facility] Upper Respiratory SPECIMEN FROM THROAT / Unknown 03/03/2025 12:10 PM CDT us December LEAD SIMULATION MODELING ENGINEER POINT OF CARE TESTING Final Resu lt [facility] CLIA# [id number] [address] [facility] [address] from Last 3 Months Insurance [facility] [place]ICA[place] [address] [address] MEDICAID Care Teams Perinatal Educator Relationship Specialty Start Date End Date Cary Monzon DO [address] [place] [address] PCP - General Family Practice 10/28/11
--- OUTSIDE RECORDS SUMMARY | 2025-05-18 21:13 | XMS_ITS | Encounter Summary ---
Author Organization [facility] Address [address] [place] [address] Care Team Providers Care Front Desk Coordinator Name Role Phone Cary Monzon DO Primary Care Provider [phone]- [phone] Encounter Details Date Type Department Care Team (Latest Contact Info) Description 2005 Outpatient Historical [facility] [address] [place] [address] Wm Barrett MD [address] [place] [phone] ESOPHAGEAL REFLUX (Primary Dx) Social History Tobacco Use Types Packs/Day Years Used Date Smoking Tobacco: Never Assessed Comments Unknown Sex and Gender Information Value Date Recorded Sex Assigned at Not on file Legal Sex Female 3:37 AM HEEL PRICKER Gender Identity Not on file Sexual Orientation Not on file documented as of this encounter Plan of Treatment Not on file documented as of this encounter Visit Diagnoses Diagnosis Esophageal reflux- Primary documented in this encounter Additional Health Concerns Infection Onset Date Last Indicated Resolved Time R/O COVID-19 05/26/2020 05/26/2020 05/28/2020 2:15 AM CDT R/O COVID-19 09/17/2020 09/17/2020 09/19/2020 3:30 AM HEEL PRICKER documented as of this encounter Care Teams Front Desk Coordinator Relationship Specialty Start Date End Date Cary Monzon DO [address] [place] [phone] PCP - General Family Practice 10/28/11 documented as of this encounter
--- OUTSIDE RECORDS SUMMARY | 2025-05-18 21:13 | XMS_ITS | Encounter Summary ---
Author Organization [facility] Address [address] [place] [address] Care Team Providers Care Wet Process Assistant Head Miller Name Role Phone Cary Monzon Primary Care Provider +- [phone] Encounter Details Date Type Department Care Team (Late st Contact Info) Description 05/13/2025 Orders Only [facility] Health Information Management [place] [address] [place] [address] Provider, Abstract NO ADDRESS ON [...] on file Legal Sex Female 10:02 AM ASSOCIATE CIVIL ENGINEER Gender Identity Not on file Sexual Orientation Not on file documented as of this encounter Plan of Treatment Upcoming Encounters Date Type Department Care Team (Late st Contact Info) Description 06/12/2025 8:00 AM CDT Office Visit [facility] [place] [address] [place] [address] December, [facility] [address] [place] [address] 09/24/2025 8:40 AM ASSOCIATE CIVIL ENGINEER Office Visit [facility] [address] [place] [phone] Cary Monzon DO [address] [place] [phone] 02/12/2026 10:10 AM CDT Office Visit [facility] [place] [address] [place] [address] Vicki Maya PA [address] [place] [address] documented as of this encounter Procedures Procedure Name Priority Date/Time Associated Diagnosis Comments COMPREHENSIVE METABOLIC PANEL Routine 05/10/2025 12:13 PM CDT documented in this encounter Results * COMPREHENSIVE METABOLIC PANEL (05/10/2025 12:13 PM CDT) Blood us Abstract Provider CHEMISTRY ORDERABLES Final Res ult documented in this encounter Visit Diagnoses Not on filedocumented in this encounter Care Teams Wet Process Assistant Head Miller Relationship Specialty Start Date End Date Cary Monzon DO [address] [place] [phone] PCP - General Family Practice 10/28/11 documented as of this encounter
--- OUTSIDE RECORDS SUMMARY | 2025-05-18 21:13 | XMS_ITS | Encounter Summary ---
Author Organization [facility] Address [address] [place] [address] Care Team Providers Care Pharmacy Operations Specialist Name Role Phone Cary Monzon DO Primary Care Provider +1- [phone] Encounter Details Date Type Department Care Team (Latest Contact Info) Description 04/18/2006 Outpatient Historical [facility] [place] [address] [place] [phone] Ovidio Tompkins MD NO ADDRESS ON FILE Routine Child Health Exam (Primary Dx); Unspecified Anemia Social History Tobacco Use Types Packs/Day Years Used Date Smoking Tobacco: Never Assessed Comments Unknown Sex and Gender Information Value Date Recorded Sex Assigned at Not on file Legal Sex Female 3:37 AM RADIOLOGIST Gender Identity Not on file Sexual Orientation [...] R/O COVID-19 09/17/2020 09/17/2020 09/19/2020 3:30 AM RADIOLOGIST documented as of this encounter Care Teams Pharmacy Operations Specialist Relationship Specialty Start Date End Date Cary Monzon DO [address] [place] [address] PCP - General Family Practice 10/28/11 documented as of this encounter
--- OUTSIDE RECORDS SUMMARY | 2025-05-18 21:13 | XMS_ITS | Encounter Summary ---
Author Organization [facility] Address [address] [place] [address] Care Team Providers Care Grey Goods Marker Name Role Phone Cary Monzon DO Primary Care Provider Encounter Details Date Type Department Care Team (Latest Contact Info) Description 2005 Outpatient Historical [facility] [address] [place] [address] Wm Barrett MD [address] [place] [phone] ESOPHAGEAL REFLUX (Primary Dx) Social History Tobacco Use Types Packs/Day Years Used Date Smoking Tobacco: Never Assessed Comments Unknown Sex and Gender Information Value Date Recorded Sex Assigned at Not on file Legal Sex Female 3:37 AM EDGE STRIPPER Gender Identity Not on file Sexual Orientation Not on file documented as of this encounter Plan of Treatment Not on file documented as of this encounter Visit Diagnoses Diagnosis Esophageal reflux- Primary documented in this encounter Additional Health Concerns Infection Onset Date Last Indicated Resolved Time R/O COVID-19 05/26/2020 05/26/2020 05/28/2020 2:15 AM CDT R/O COVID-19 09/17/2020 09/17/2020 09/19/2020 3:30 AM EDGE STRIPPER documented as of this encounter Care Teams Grey Goods Marker Relationship Specialty Start Date End Date Cary Monzon DO [address] [place] [phone] PCP - General Family Practice 10/28/11 documented as of this encounter
--- OUTSIDE RECORDS SUMMARY | 2025-05-18 21:13 | XMS_ITS | Encounter Summary ---
Author Organization [facility] Address [address] [place] [address] Care Team Providers Care Ironworker Helper Shop Name Role Phone Cary Monzon DO Primary Care Provider Encounter Details Date Type Department Care Team (Latest Contact Info) Description 2005 Outpatient Historical [facility] [place] [address] [place] [phone] Ovidio Tompkins MD NO ADDRESS ON FILE Routine child health exam (Primary Dx); ESOPHAGEAL REFLUX Social History Tobacco Use Types Packs/Day Years Used Date Smoking Tobacco: Never Assessed Comments Unknown Sex and Gender Information Value Date Recorded Sex Assigned at Not on file Legal Sex Female 3:37 AM FINANCIAL ANALYST INTERN Gender Identity Not on file Sexual [...] R/O COVID-19 09/17/2020 09/17/2020 09/19/2020 3:30 AM FINANCIAL ANALYST INTERN documented as of this encounter Care Teams Ironworker Helper Shop Relationship Specialty Start Date End Date Cary Monzon DO [address] [place] [address] PCP - General Family Practice 10/28/11 documented as of this encounter
--- OUTSIDE RECORDS SUMMARY | 2025-05-18 21:13 | XMS_ITS | Encounter Summary ---
Author Organization [facility] Address [address] [place] [address] Care Team Providers Care Data Architect Name Role Phone NaCary bautista Primary Care Provider Encounter Details Date Type Department Care Team (Late st Contact Info) Description 2005 Emergency [facility] Emergency Department [address] [place] [address] Roverto Patel DO NO ADDRESS ON FILE ESOPHAGEAL REFLUX (Primary Dx) Social History Tobacco Use Types Packs/Day Years Used Date Smoking Tobacco: Never Assessed Comments Unknown Sex and Gender Information Value Date Recorded Sex Assigned at Not on file Legal Sex Female 3:37 AM DESIZING MACHINE OPERATOR HEAD END Gender Identity Not on file Sexual Orientation [...] COM Fi nal Result Performing Organization Address [facility] Phone Number INTERFACE SYSTEM Refer to clinic/hospital department * (ABNORMAL) CBC WITH DIFFERENTIAL (2005 6:17 PM CDT) Pathologist [facility] RBC 5.18 3.00 - 6.20 Mil/ul INTERFACE [...] HEMATOLOGY ORDERABLES Final Result Performing Organization Address [facility] Phone Number INTERFACE SYSTEM Refer to clinic/hospital department * (ABNORMAL) BASIC METABOLIC PANEL (2005 6:17 PM CDT) Pathologist [facility] GLUCOSE 91 60 - 100 mg/dL INTERFACE [...] R/O COVID-19 09/17/2020 09/17/2020 09/19/2020 3:30 AM DESIZING MACHINE OPERATOR HEAD END documented as of this encounter Care Teams Data Architect Relationship Specialty Start Date End Date Cary Monzon DO [address] [place] [phone] PCP - General Family Practice 10/28/11 documented as of this encounter
--- OUTSIDE RECORDS SUMMARY | 2025-05-18 21:13 | XMS_ITS | Encounter Summary ---
Author Organization [facility] Address [address] [place] [address] Care Team Providers Care Puller Over Name Role Phone Na Cary L DO Primary Care Provider Encounter Details Date Type Department Care Team (Latest Contact Info) Description [address] [facility] [address] [place] [address] Wm Barrett MD [address] [place] [phone] REFLUX ESOPHAGITIS (Primary Dx) Social History Tobacco Use Types Packs/Day Years Used Date Smoking Tobacco: Never Assessed Comments Unknown Sex and Gender Information Value Date Recorded Sex Assigned at Not on file Legal Sex Female 3:37 AM COMPRESSOR ASSEMBLER Gender Identity Not on file Sexual Orientation Not on file documented as of this encounter Plan of Treatment Not on file documented as of this encounter Visit Diagnoses Diagnosis Reflux esophagitis- Primary documented in this encounter Additional Health Concerns Infection Onset Date Last Indicated Resolved Time R/O COVID-19 05/26/2020 05/26/2020 05/28/2020 2:15 AM CDT R/O COVID-19 09/17/2020 09/17/2020 09/19/2020 3:30 AM COMPRESSOR ASSEMBLER documented as of this encounter Care Teams Puller Over Relationship Specialty Start Date End Date Cary Monzon DO [address] [place] [phone] PCP - General Family Practice 10/28/11 documented as of this encounter
--- OUTSIDE RECORDS SUMMARY | 2025-05-18 21:13 | XMS_ITS | Encounter Summary ---
Author Organization [facility] Address [address] [place] [address] Care Team Providers Care Insurance Policy Clerk Name Role Phone Cary Monzon DO Primary Care Provider Encounter Details Date Type Department Care Team (Latest Contact Info) Description 2005 Outpatient Historical [facility] [address] [place] [phone] Ovidio Tompkins MD NO ADDRESS ON FILE Feeding problem (Primary Dx); ESOPHAGEAL REFLUX Social History Tobacco Use Types Packs/Day Years Used Date Smoking Tobacco: Never Assessed Comments Unknown Sex and Gender Information Value Date Recorded Sex Assigned at Not on file Legal Sex Female 3:37 AM EXTENSION SERVICE SUPERVISOR Gender Identity Not on file Sexual [...] COVID-19 09/17/2020 09/17/2020 09/19/2020 3:30 AM EXTENSION SERVICE SUPERVISOR documented as of this encounter Care Teams Insurance Policy Clerk Relationship Specialty Start Date End Date Cary Monzon DO [address] [place] [address] PCP - General Family Practice 10/28/11 documented as of this encounter
--- OUTSIDE RECORDS SUMMARY | 2025-05-18 21:13 | XMS_ITS | Encounter Summary ---
Author Organization [facility] Address [address] [place] [address] Care Team Providers Care Dual Rate Dealer Name Role Phone NaCary bautista Primary Care Provider [phone]- [phone] Encounter Details Date Type Department Care Team (Late st Contact Info) Description 2005 Inpatient Historical [facility] Ovidio Tompkins MD NO ADDRESS ON FILE FAILURE TO THRIVE (Primary Dx) Social History Tobacco Use Types Packs/Day Years Used Date Smoking Tobacco: Never Assessed Comments Unknown Sex and Gender Information Value Date Recorded Sex Assigned at Not on file Legal Sex Female 3:37 AM GRADING CLERK Gender Identity Not on file Sexual [...] ORDERABLES Final Resul t Performing Organization Address [facility] Phone Number INTERFACE SYSTEM Refer to clinic/hospital department * URINALYSIS MICROSCOPY ONLY (2005 2:42 PM CDT) WBC URINE None Seen 0 - 2 INTERFACE SYSTEM RBC UA None Seen 0 - 2 INTERFACE SYSTEM HYALINE CAST None Seen 0 - 2 INTERFA CE SYSTEM 2005 2:42 PM CDT us Ovidio Tompkins MD URINE ORDERABLES Final Resul t Performing Organization Address [facility] Phone Number INTERFACE SYSTEM Refer to clinic/hospital department * T4 FREE (2005 2:42 PM CDT) T4 FREE 1.40 0.89 - 1.76 ng/dL INTERFACE SYSTEM Comment: As of 05 at 3:00 p.m. [facility] has changed the methodology for Free T4, and with this change the reference range has changed from 0.71-1.85 to 0.89-1.76 ng/dl. 2005 2:42 PM CDT Ovidio Tompkins MD CHEMISTRY ORDERABLES Final R esult Performing Organization Address [facility] Phone Number INTERFACE SYSTEM Refer to clinic/hospital department * TSH (2005 2:42 PM CDT) TSH 2.751 0.350 - 5.500 uIU/ml INTERFACE SYSTEM Comment: [facility] TSH, and with this change the reference range has changed from 0.49-4.67 to 0.35-5.5 uIU/ml. 2005 2:42 PM CDT Ovidio Tompkins MD CHEMISTRY ORDERABLES Final R esult Performing Organization Address [facility] Phone Number INTERFACE SYSTEM Refer to clinic/hospital [...] COM Fi nal Result Performing Organization Address [facility] Phone Number INTERFACE SYSTEM Refer to clinic/hospital [...] HEMATOLOGY ORDERABLES Final Result Performing Organization Address [facility] Phone Number INTERFACE SYSTEM Refer to clinic/hospital department * (ABNORMAL) AST (2005 2:42 PM CDT) AST 46(H) 14 - 36 IU/L INTERFACE SYSTEM 2005 2:42 PM CDT us Ovidio Tompkins MD CHEMISTRY ORDERABLES Final R esult Performing Organization Address [facility] Phone Number INTERFACE SYSTEM Refer to clinic/hospital [...] R/O COVID-19 09/17/2020 09/17/2020 09/19/2020 3:30 AM GRADING CLERK documented as of this encounter Care Teams Dual Rate Dealer Relationship Specialty Start Date End Date Cary Monzon DO [address] [place] [address] PCP - General Family Practice 10/28/11 documented as of this encounter
--- OUTSIDE RECORDS SUMMARY | 2025-05-18 21:13 | XMS_ITS | Clinical Summary ---
Author Organization [facility] Address [address] [facility] [place] [address] Care Team Providers Care Environmental Technician Name Role Phone Na Cary L DO [...] PERTUSSIS, HEPATITIS B, AND INACTIVATED POLIOVIRUS VACCINE ([id number]), 0.5ML, IM 2005,2005,2005 (VARIVAX)(12 MOS UP)VARICELL A [...] on file Legal Sex Female 3:37 AM GIMP BUTTONHOLE MACHINE OPERATOR Gender Identity Not on file [...] history exists Medical Devices Implanted Type Area Biology Research Assistant Device Identifier Shelf Expiration Date Model / Serial / Lot Capsule [employer] Test [id number] - [id number] Implanted:Qty: 1 on 10/22/2020 by Alden Price MD at [facility] Other N/A: Esophagus [employer] COVIDIEN metaphysician. GIVEN 03/13/2022 [id number] / / [id number] Care Teams Environmental Technician Relationship Specialty Start Date End Date Cary Monzon DO [address] [place] [address] PCP - General Family Practice 10/28/11
--- OUTSIDE RECORDS SUMMARY | 2025-05-18 21:13 | XMS_ITS | Encounter Summary ---
Author Organization [facility] Address [address] [place] [address] Care Team Providers Care Insurance Sales Executive Name Role Phone NaCary bautista Primary Care Provider Encounter Details Date Type Department Care Team (Latest Contact Info) Description 2005 Outpatient Historical [facility] [address] [place] [address] Wm Barrett MD [address] [place] [phone] UNSPECIFIED VIRAL INFECTION (Primary Dx) Social History Tobacco Use Types Packs/Day Years Used Date Smoking Tobacco: Never Assessed Comments Unknown Sex and Gender Information Value Date Recorded Sex Assigned at Not on file Legal Sex Female 3:37 AM TREAD BOOKER Gender Identity Not on file Sexual Orientation [...] R/O COVID-19 09/17/2020 09/17/2020 09/19/2020 3:30 AM TREAD BOOKER documented as of this encounter Care Teams Insurance Sales Executive Relationship Specialty Start Date End Date Cary Monzon DO [address] [place] [address] PCP - General Family Practice 10/28/11 documented as of this encounter
--- OUTSIDE RECORDS SUMMARY | 2025-05-18 21:13 | XMS_ITS | Encounter Summary ---
Author Organization [facility] Address [address] [place] [address] Care Team Providers Care Lumpia Wrapper Maker Name Role Phone Cary Monzon DO Primary Care Provider Encounter Details Date Type Department Care Team (Latest Contact Info) Description 2005 Outpatient Historical [facility]-[place] [facility] [place] [address] [place] [phone] Ovidio Tompkins MD NO ADDRESS ON FILE FEVER (Primary Dx) Social History Tobacco Use Types Packs/Day Years Used Date Smoking Tobacco: Never Assessed Comments Unknown Sex and Gender Information Value Date Recorded Sex Assigned at Not on file Legal Sex Female 3:37 AM EVENTS INTERN Gender Identity Not on file Sexual [...] R/O COVID-19 09/17/2020 09/17/2020 09/19/2020 3:30 AM EVENTS INTERN documented as of this encounter Care Teams Lumpia Wrapper Maker Relationship Specialty Start Date End Date Cary Monzon DO [address] [place] [address] PCP - General Family Practice 10/28/11 documented as of this encounter
--- OUTSIDE RECORDS SUMMARY | 2025-05-18 21:13 | XMS_ITS | Encounter Summary ---
Author Organization [facility] Address [address] [place] [address] Care Team Providers Care Icu Rn Name Role Phone Cary Monzon DO Primary Care Provider Encounter Details Date Type Department Care Team (Latest Contact Info) Description 2005 Outpatient Historical [facility] [place] [address] [place] [phone] Ovidio Tompkins MD NO ADDRESS ON FILE Routine child health exam (Primary Dx); ESOPHAGEAL REFLUX Social History Tobacco Use Types Packs/Day Years Used Date Smoking Tobacco: Never Assessed Comments Unknown Sex and Gender Information Value Date Recorded Sex Assigned at Not on file Legal Sex Female 3:37 AM PROPERTY HANDLER Gender Identity Not on file Sexual Orientation [...] R/O COVID-19 09/17/2020 09/17/2020 09/19/2020 3:30 AM PROPERTY HANDLER documented as of this encounter Care Teams Icu Rn Relationship Specialty Start Date End Date Cary Monzon DO [address] [place] [address] PCP - General Family Practice 10/28/11 documented as of this encounter
--- OUTSIDE RECORDS SUMMARY | 2025-05-18 21:13 | XMS_ITS | Encounter Summary ---
Author Organization [facility] Address [address] [place] [address] Care Team Providers Care Law Enforcement Director Name Role Phone Cary Monzon DO Primary Care Provider Encounter Details Date Type Department Care Team (Latest Contact Info) Description 2005 Outpatient Historical [facility] [place] [address] [place] [phone] Ovidio Tompkins MD NO ADDRESS ON FILE Routine Child Health Exam (Primary Dx); Esophageal Reflux Social History Tobacco Use Types Packs/Day Years Used Date Smoking Tobacco: Never Assessed Comments Unknown Sex and Gender Information Value Date Recorded Sex Assigned at Not on file 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
--- OUTSIDE RECORDS SUMMARY | 2025-05-18 21:13 | XMS_ITS | Encounter Summary ---
Author Organization [facility] Address [address] [place] [address] Care Team Providers Care Front Attendant Name Role Phone Cary Monzon DO Primary Care Provider +[phone]- [phone] Encounter Details Date Type Department Care Team (Latest Contact Info) Description 2005 Outpatient Historical [facility] [address] [place] [address] Wm Barrett MD [address] [place] [phone] ESOPHAGEAL REFLUX (Primary Dx) Social History Tobacco Use Types Packs/Day Years Used Date Smoking Tobacco: Never Assessed Comments Unknown Sex and Gender Information Value Date Recorded Sex Assigned at Not on file 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 Gender Identity Not on file Sexual Orientation Not on file documented as of this encounter Plan of Treatment Not on file documented as of this encounter Visit Diagnoses Diagnosis Esophageal reflux- Primary documented in this encounter Additional Health Concerns Infection Onset Date Last Indicated Resolved Time R/O COVID-19 05/26/2020 05/26/2020 05/28/2020 2:15 AM CDT R/O COVID-19 09/17/2020 09/17/2020 09/19/2020 3:30 AM NUTRITIONISTS documented as of this encounter Care Teams Front Attendant Relationship Specialty Start Date End Date Cary Monzon DO [address] [place] [phone] PCP - General Family Practice 10/28/11 documented as of this encounter
--- OUTSIDE RECORDS SUMMARY | 2025-05-18 21:13 | XMS_ITS | Encounter Summary ---
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
[2025-05-18 22:32] LABS: Hematocrit 37.8 % (36-47); Hemoglobin 12.90 g/dL (12.4-14.8); Mean Corpuscular HGB Conc 34.1 g/dL (30-55); Mean Corpuscular Hemoglobin 27.8 pg (27-33); Mean Corpuscular Volume 81.5 fl (85-98); Nucleated Red Blood Cells % 0 %; Platelet Count 196 10^3/cmm (157-399); Red Blood Count 4.64 10^6/uL (3.85-5.65); White Blood Count 16.46 10^3/uL (4.5-13.0)
[2025-05-18 22:59] LABS: Alanine Aminotransferase 10 U/L (0-33); Albumin Level 3.8 g/dL (3.5-5.2); Alkaline Phosphatase 97 U/L (35-105); Anion Gap 21.7 (5-19); Aspartate Amino Transferase 11 U/L (0-32); Blood Urea Nitrogen 8 mg/dL (6-20); Calcium 9.2 mg/dL (8.5-10.5); Carbon Dioxide 19 mmol/L (22-29); Chloride 96 mmol/L (98-107); Creatinine Clr Calc Pharmacy 95.9285; Globulin 3.8 g/dL (1.3-4.6); Glucose 126 mg/dL (65-115); Osmolality Calculated 276 mOsm/kg (285-295); Potassium 3.7 mmol/L (3.5-5.1); Sodium 133 mmol/L (136-145); Total Protein 7.6 g/dL (6.6-8.7)
--- NOTE | 2025-05-18 23:52 | W.ED.ABDPA2 ---
Documented by User: ROSELINE Espino 05/19/25 02:36 HPI - Abdominal Pain General: Chief Complaint: ER Hold Stated Complaint: 11Wks , Abd pain Time Seen by Provider: 05/18/25 23:37 History of Present Illness: Patient is 20-year-old female, 11W 1D , presents to the emergency room with dysuria, bilateral flank pain, ongoing nausea, and vomiting. Patient had emesis in the waiting room prior to being placed in a emergency room. She has not tolerated any intake today. Primary OB is at [place], [place]. Related Data Home Medications ?Medication ?Instructions ?Recorded ?Confirmed buspirone 5 mg tablet 5 mg PO TID 11/14/19 11/28/22 cetirizine 10 mg capsule 10 mg PO DAILY 11/14/19 11/28/22 diphenhydramine HCl 25 mg capsule 25 mg PO Q6H PRN allergies 11/14/19 11/28/22 (Benadryl) epinephrine 0.3 mg/0.3 mL 0.3 mg IM Q30M PRN unknown 11/14/19 11/28/22 injection, auto-injector loratadine 10 mg tablet 10 mg PO DAILY 11/14/19 11/28/22 mirtazapine 15 mg tablet (Remeron) 7.5 mg PO DAILY 11/14/19 11/28/22 risperidone 2 mg tablet (Risperdal) 2 mg PO DAILY 11/14/19 11/28/22 sertraline 50 mg tablet (Zoloft) 75 mg PO DAILY 11/14/19 11/28/22 ibuprofen 400 mg tablet 400 mg PO TID PRN Pain 11/22/19 11/28/22 ondansetron 4 mg disintegrating 4 mg PO Q8H PRN nausea/vomiting 11/22/19 11/28/22 tablet famotidine 20 mg tablet 20 mg PO BID 03/09/20 11/28/22 melatonin 3 mg tablet 3 mg PO BEDTIME 03/09/20 11/28/22 Previous Rx's ?Medication ?Instructions ?Recorded cam boot to left #1 ea 08/29/22 ASO to left #1 ea 10/12/22 prednisone 10 mg tablet 10 mg PO DIRECTED #65 tabs 02/14/24 triamcinolone acetonide 0.5 % 1 applic topical BID PRN Rash #30 02/14/24 topical cream grams Allergies Allergy/AdvReac Type Severity Reaction Status Date / Time adhesive tape Allergy Unknown Verified 05/18/25 21:15 Alpha-Gal Allergy ALGY-Anaphy Verified 05/18/25 21:15 (Zelcjeduq-Crgog-3,3-Gala laxis benztropine Allergy Unknown Verified 05/19/25 00:10 crisaborole Allergy Unknown Verified 05/19/25 00:10 doxycycline Allergy vomit Verified 05/18/25 21:15 Fish Containing Products Allergy Unknown Verified 05/19/25 00:10 lactose Allergy Unknown Verified 05/19/25 00:10 methylprednisolone (From Allergy Unknown Verified 05/19/25 00:10 Solu-Medrol) naproxen Allergy vomit Verified 05/18/25 21:15 olanzapine Allergy Unknown Verified 05/19/25 00:10 shellfish derived Allergy Unknown Verified 05/19/25 00:10 spinach Allergy Unknown Verified 05/19/25 00:10 [facility] ED PFSH: Medical History (Updated 05/19/25 @ 02:36 by ROSELINE Espino) ADHD Bipolar 1 disorder Chronic sinusitis Tinnitus Nasal turbinate hypertrophy Deviated septum Allergic rhinitis Social History Smoking and tobacco/nicotine status: never used tobacco/nicotine Second hand smoke exposure: Yes Alcohol intake: never Substance/Drug Use: never Highest education level completed: 8th Grade Pets and animals: Yes Pets & animals: dog(s) Course Reevaluation(s): Reevaluation #1: Still having some nausea but no emesis. Consultations: Consultation #1: Discussed with Dr. Allen. Given the red blood cells micro from 11?20, she would like to rule out obstruction before any consideration of admission. Patient has recent E. coli UTI on microbiology, currently untreated. Suspect this 1 as well as E. coli UTI. Will check ultrasound to rule out obstruction prior to considering admission. Discussed with Dr. Calderon that will assume care of the patient. Vital Signs: Vital signs: Vital Signs Temperature 99.7 F H 05/19/25 05:06 Pulse Rate 114 H 05/19/25 05:06 Respiratory Rate 18 05/19/25 05:06 Blood Pressure 101/51 05/19/25 05:06 Pulse Oximetry 97 09/08/25 05:06 Oxygen Delivery Me thod Room Air 05/19/25 05:06 MDM - Abdominal Pain Medical Decision Making Patient is a 20-year-old female, 11 weeks , presents to the ED with ongoing dysuria, now bilateral flank pain, ongoing nausea, vomiting. Unable to hold down water. She had emesis in triage. Pyelonephritis is suspected. Urine analysis shows greater than 100 CFU/mL of WBCs, microbiology shows E. coli UTI that is not pansensitive. Discussed with hospitalist that recommended ultrasound to rule out obstruction. Ultrasonography has been ordered given her . She has been treated with appropriate antimicrobials per gera Bryan on the E. coli, 1 L IV fluid, and diphenhydramine for nausea. Plan is to reassess after more information for ultrasonography is available for possibility of admission. Discussed with Dr. Calderon, whom has approved signout to him. Medical Records I reviewed the patient's medical records. Lab Data I reviewed the patient's lab results. 05/18/25 22:25 05/18/25 22:25 Labs/Radiology: Radiology Impressions Renal Ultrasound 05/19/25 01:14 IMPRESSION: Unremarkable kidneys and bladder. Laboratory Results WBC 16.46 10^3/uL (4.5-13.0) H 05/18/25 22: RBC 4.64 10^6/uL (3.85-5.65) 05/18/25 22: Hgb 12.90 g/dL (12.4-14.8) 05/18/25 22: Hct 37.8 % (36-47) 05/18/25: MCV 81.5 fl (85-98) L 05/18/25 22: MCH 27.8 pg (27-33) 05/18/25: MCHC 34.1 g/dL (30-55) 05/18/25: RDW 13.3 % (12.1-15.1) 05/18/25: Plt Count 196 10^3/cmm (157-399) 05/18/25: MPV 10.5 fL (7.4-10.4) H 05/18/25 22:25 Neut % (Auto) 86.2 % 05/18/25 22:25 Lymph % (Auto) 5.2 % 05/18/25 22:25 [place] % (Auto) 7.9 % 05/18/25 22: Eos % (Auto) 0.1 % 05/18/25 22: Baso % (Auto) 0.2 % 05/18/25: Neut # (Auto) 14.20 10^3/uL (1.8-8.0) H 05/18/25 22:25 Lymph # (Auto) 0.9 10^3/uL (1.5-6.5) L 05/18/25 22:25 [place] # (Auto) 1.3 10^3/uL (0.2-0.9) H 05/18/25: Eos # (Auto) 0.0 10^3/uL (0.0-0.8) 05/18/25: Baso # (Auto) 0.0 10^3/uL (0.0-0.1) 05/18/25 22:25 Nucleated RBC % (auto) 0 % 05/18/25: Nucleated RBCs # 0.0 /100WBC 05/18/25 22:25 Sodium 133 mmol/L (136-145) L 05/18/25 22:25 Potassium 3.7 mmol/L (3.5-5.1) 05/18/25 22: Chloride 96 mmol/L (98-107) L 05/18/25 22:25 Carbon Dioxide 19 mmol/L (22-29) L 05/18/25 22:25 Anion Gap 21.7 (5-19) H 05/18/25 22:25 BUN 8 mg/dL (6-20) 05/18/25 22: Creatinine 0.9 mg/dL (0.5-0.9) 05/18/25 22:25 GFR Calculation 79.8 mL/min (90-130) L 05/18/25 22: Glucose 126 mg/dL (65-115) H 05/18/25 22:25 Calculated Osmolality 276 mOsm/kg (285-295) L 05/18/25 22:25 Calcium 9.2 mg/dL (8.5-10.5) 05/18/25 22:25 Total Bilirubin 0.5 mg/dL (0.15-1.2) 09/07/25 22:25 AST 11 U/L (0-32) 05/18/25 22:25 ALT 10 U/L (0-33) 05/18/25 22: Alkaline Phosphatase 97 U/L (35-105) 05/18/25 22: Total Protein 7.6 g/dL (6.6-8.7) 05/18/25: Albumin 3.8 g/dL (3.5-5.2) 05/18/25: Globulin 3.8 g/dL (1.3-4.6) 05/18/25 22: Urine Color Dark yellow (Yellow) A 05/19/25 00:00 Urine Appearance Turbid (CLEAR) A 05/19/25 00:00 Urine pH 5.5 (5-7) 05/19/25 00:00 Ur Specific [place] 1.016 (1.005-1.030) 05/19/25 00:00 Urine Protein 3+ (Negative) A 05/19/25 00:00 Urine Glucose (UA) Negative (Normal) 05/19/25 00:00 Urine Ketones 1+ (Negative) H 05/19/25 00:00 Urine Blood 3+ (Negative) A 05/19/25 00:00 Urine Nitrate Negative (Negative) 05/19/25 00:00 Urine Bilirubin 1+ (Negative) H 05/19/25 00:00 Urine Urobilinogen 1.0 mg/dL (Negative) 05/19/25 00:00 Ur Leukocyte Esterase 3+ (Negative) A 05/19/25 00:00 Urine RBC 11-20 /hpf (0-2) H 05/19/25 00:00 Urine WBC >100 /hpf (0-5) H 05/19/25 00:00 Ur Squamous Epith Cells 11-20 /hpf (0-5) H 05/19/25 00:00 Amorphous Sediment Not Reportable 05/19/25 00:00 Urine Bacteria 4+ /hpf (NONE) H 05/19/25 00:00 Hyaline Casts 20.18 /lpf 05/19/25 00:00 Discharge Plan Discharge Patient Disposition: Admitted As Inpatient Admit Provider: Angie Allen Clinical Impression: Pyuria, Pyelonephritis affecting in first trimester Condition: Stable Discharge Diet: Usual diet Discharge Activity: Resume usual activity Coding Level of Care Code ED Survey Research Teacher for Chg Fwd Documented by User: Christian Calderon, 05/19/25 03:28 HPI - Abdominal Pain General: Chief Complaint: ER Hold Stated Complaint: 11Wks , Abd pain Time Seen by Provider: 05/18/25 23:37 Related Data Home Medications ?Medication ?Instructions ?Recorded ?Confirmed buspirone 5 mg tablet 5 mg PO TID 11/14/19 11/28/22 cetirizine 10 mg capsule 10 mg PO DAILY 11/14/19 11/28/22 diphenhydramine HCl 25 mg capsule 25 mg PO Q6H PRN allergies 11/14/19 11/28/22 (Benadryl) epinephrine 0.3 mg/0.3 mL 0.3 mg IM Q30M PRN unknown 11/14/19 11/28/22 injection, auto-injector loratadine 10 mg tablet 10 mg PO DAILY 11/14/19 11/28/22 mirtazapine 15 mg tablet (Remeron) 7.5 mg PO DAILY 11/14/19 11/28/22 risperidone 2 mg tablet (Risperdal) 2 mg PO DAILY 11/14/19 11/28/22 sertraline 50 mg tablet (Zoloft) 75 mg PO DAILY 11/14/19 11/28/22 ibuprofen 400 mg tablet 400 mg PO TID PRN Pain 11/22/19 11/28/22 ondansetron 4 mg disintegrating 4 mg PO Q8H PRN nausea/vomiting 11/22/19 11/28/22 tablet famotidine 20 mg tablet 20 mg PO BID 03/09/20 11/28/22 melatonin 3 mg tablet 3 mg PO BEDTIME 03/09/20 11/28/22 Previous Rx's ?Medication ?Instructions ?Recorded cam boot to left #1 ea 08/29/22 ASO to left #1 ea 10/12/22 prednisone 10 mg tablet 10 mg PO DIRECTED #65 tabs 02/14/24 triamcinolone acetonide 0.5 % 1 applic topical BID PRN Rash #30 02/14/24 topical cream grams Allergies Allergy/AdvReac Type Severity Reaction Status Date / Time adhesive tape Allergy Unknown Verified 05/18/25 21:15 Alpha-Gal Allergy ALGY-Anaphy Verified 05/18/25 21:15 (Rxhxtuibe-Okezy-2,3-Gala laxis benztropine Allergy Unknown Verified 05/19/25 00:10 crisaborole Allergy Unknown Verified 05/19/25 00:10 doxycycline Allergy vomit Verified 05/18/25 21:15 Fish Containing Products Allergy Unknown Verified 05/19/25 00:10 lactose Allergy Unknown Verified 05/19/25 00:10 methylprednisolone (From Allergy Unknown Verified 05/19/25 00:10 Solu-Medrol) naproxen Allergy vomit Verified 05/18/25 21:15 olanzapine Allergy Unknown Verified 05/19/25 00:10 shellfish derived Allergy Unknown Verified 05/19/25 00:10 spinach Allergy Unknown Verified 05/19/25 00:10 [facility] ED PFSH: Medical History (Updated 05/19/25 @ 02:36 by ROSELINE Espino) ADHD Bipolar 1 disorder Chronic sinusitis Tinnitus Nasal turbinate hypertrophy Deviated septum Allergic rhinitis Social History Smoking and tobacco/nicotine status: never used tobacco/nicotine Second hand smoke exposure: Yes Alcohol intake: never Substance/Drug Use: never Highest education level completed: 8th Grade Pets and animals: Yes Pets & animals: dog(s) Course Vital Signs: Vital signs: Vital Signs Temperature 99.7 F H 05/19/25 05:06 Pulse Rate 114 H 05/19/25 05:06 Respiratory Rate 18 05/19/25 05:06 Blood Pressure 101/51 05/19/25 05:06 Pulse Oximetry 97 05/19/25 05:06 Oxygen Delivery Me thod Room Air 05/19/25 05:06 MDM - Abdominal Pain Medical Decision Making Patient is a 20-year-old female, 11 weeks , presents to the ED with ongoing dysuria, now bilateral flank pain, ongoing nausea, vomiting. Unable to hold down water. She had emesis in triage. Pyelonephritis is suspected. Urine analysis shows greater than 100 CFU/mL of WBCs, microbiology shows E. coli UTI that is not pansensitive. Discussed with hospitalist that recommended ultrasound to rule out obstruction. Ultrasonography has been ordered given her . She has been treated with appropriate antimicrobials per gera Bryan on the E. coli, 1 L IV fluid, and diphenhydramine for nausea. Plan is to reassess after more information for ultrasonography is available for possibility of admission. Discussed with Dr. Calderon, whom has approved signout to him. Patient checked out to me at shift change. She was previously seen by [facility] Figueroa. I agree with her history, evaluation, and management. She has received fluids, IV Rocephin. Ultrasound reveals no obstructive uropathy or hydronephrosis. No renal abscess. She will be admitted for pyelonephritis and first trimester . Spoke with hospitalist who agrees. Lab Data 05/18/25 22:25 05/18/25 22:25 Labs/Radiology: Radiology Impressions Renal Ultrasound 05/19/25 01:14 IMPRESSION: Unremarkable kidneys and bladder. Laboratory Results WBC 16.46 10^3/uL (4.5-13.0) H 05/18/25 22:25 RBC 4.64 10^6/uL (3.85-5.65) 05/18/25 22:25 Hgb 12.90 g/dL (12.4-14.8) 05/18/25 22:25 Hct 37.8 % (36-47) 05/18/25 22:25 MCV 81.5 fl (85-98) L 05/18/25 22: MCH 27.8 pg (27-33) 05/18/25 22: MCHC 34.1 g/dL (30-55) 05/18/25 22:25 RDW 13.3 % (12.1-15.1) 05/18/25 22:25 Plt Count 196 10^3/cmm (157-399) 05/18/25 22: MPV 10.5 fL (7.4-10.4) H 05/18/25 22:25 Neut % (Auto) 86.2 % 05/18/25 22:25 Lymph % (Auto) 5.2 % 05/18/25 22:25 [place] % (Auto) 7.9 % 05/18/25 22:25 Eos % (Auto) 0.1 % 05/18/25 22:25 Baso % (Auto) 0.2 % 05/18/25 22: Neut # (Auto) 14.20 10^3/uL (1.8-8.0) H 05/18/25 22:25 Lymph # (Auto) 0.9 10^3/uL (1.5-6.5) L 05/18/25 22: [place] # (Auto) 1.3 10^3/uL (0.2-0.9) H 05/18/25 22: Eos # (Auto) 0.0 10^3/uL (0.0-0.8) 05/18/25: Baso # (Auto) 0.0 10^3/uL (0.0-0.1) 05/18/25: Nucleated RBC % (auto) 0 % 05/18/25: Nucleated RBCs # 0.0 /100WBC 05/18/25 22:25 Sodium 133 mmol/L (136-145) L 05/18/25 22:25 Potassium 3.7 mmol/L (3.5-5.1) 05/18/25 22: Chloride 96 mmol/L (98-107) L 05/18/25 22: Carbon Dioxide 19 mmol/L (22-29) L 05/18/25 22: Anion Gap 21.7 (5-19) H 05/18/25 22:25 BUN 8 mg/dL (6-20) 05/18/25 22: Creatinine 0.9 mg/dL (0.5-0.9) 05/18/25 22: GFR Calculation 79.8 mL/min (90-130) L 05/18/25 22:25 Glucose 126 mg/dL (65-115) H 05/18/25 22:25 Calculated Osmolality 276 mOsm/kg (285-295) L 05/18/25: Calcium 9.2 mg/dL (8.5-10.5) 05/18/25: Total Bilirubin 0.5 mg/dL (0.15-1.2) 05/18/25 22: AST 11 U/L (0-32) 09/07/25 22:25 ALT 10 U/L (0-33) 05/18/25 22:25 Alkaline Phosphatase 97 U/L (35-105) 05/18/25 22: Total Protein 7.6 g/dL (6.6-8.7) 05/18/25 22: Albumin 3.8 g/dL (3.5-5.2) 05/18/25: Globulin 3.8 g/dL (1.3-4.6) 05/18/25 22: Urine Color Dark yellow (Yellow) A 05/19/25 00:00 Urine Appearance Turbid (CLEAR) A 05/19/25 00:00 Urine pH 5.5 (5-7) 05/19/25 00:00 Ur Specific [place] 1.016 (1.005-1.030) 05/19/25 00:00 Urine Protein 3+ (Negative) A 05/19/25 00:00 Urine Glucose (UA) Negative (Normal) 05/19/25 00:00 Urine Ketones 1+ (Negative) H 05/19/25 00:00 Urine Blood 3+ (Negative) A 05/19/25 00:00 Urine Nitrate Negative (Negative) 05/19/25 00:00 Urine Bilirubin 1+ (Negative) H 05/19/25 00:00 Urine Urobilinogen 1.0 mg/dL (Negative) 05/19/25 00:00 Ur Leukocyte Esterase 3+ (Negative) A 05/19/25 00:00 Urine RBC 11-20 /hpf (0-2) H 05/19/25 00:00 Urine WBC >100 /hpf (0-5) H 05/19/25 00:00 Ur Squamous Epith Cells 11-20 /hpf (0-5) H 05/19/25 00:00 Amorphous Sediment Not Reportable 05/19/25 00:00 Urine Bacteria 4+ /hpf (NONE) H 05/19/25 00:00 Hyaline Casts 20.18 /lpf 05/19/25 00:00 XR interpretation done by ED provider, pending radiology final review Discharge Plan Discharge Patient Disposition: Admitted As Inpatient Admit Provider: Angie Allen Clinical Impression: Pyuria, Pyelonephritis affecting in first trimester Condition: Stable Discharge Diet: Usual diet Discharge Activity: Resume usual activity Coding Level of Care Code ED Survey Research Teacher for Andreinag Chiqui
[2025-05-19] VITALS (8 sets, daily range): BP systolic 91–124; BP diastolic 51–72; PULSE 66–138; RESP 15–18; TEMP 36.6–38; O2SAT 93–99; BMI 26.2
[2025-05-19] MEDS: cefTRIAXone 1,000 mg SDV 1000 MG IVP ×2 (00:11→23:04)
[2025-05-19 00:17] LABS: Glucose Urine UA Negative (Normal); Nitrate Urine Negative (Negative); Specific Gravity, Urine 1.016 (1.005-1.030)
[2025-05-19 00:22] LABS: Add Urine Microscopic? YES
[2025-05-19 01:03] LABS: UA Slide Review UA Slide Review Perf
--- NOTE | 2025-05-19 01:14 | USR_ITS ---
PROCEDURE INFORMATION: Exam: US Retroperitoneal, Complete, Kidneys and Bladder Exam date and time: 05/19/2025 3:02 AM Age: 20 years old Clinical indication: Abdominal pain; Other: All over pain but does mention bilateral flank pain; ; Additional info: Poss stone TECHNIQUE: Imaging protocol: Real-time ultrasound of the retroperitoneum with image documentation. Complete exam focused on the bilateral kidneys and urinary bladder. COMPARISON: US OB <= 14 weeks fetus [id number] 05/11/2025 2:57 AM FINDINGS: Right kidney: Normal. No stones. No hydronephrosis. Left kidney: Normal. No stones. No hydronephrosis. Urinary bladder: Unremarkable. US/US renal BI* [id number] IMPRESSION: Unremarkable kidneys and bladder.
[2025-05-19] MEDS: diphenhydrAMINE 50 mg/mL SDV 1mL IVP (02:40)
--- NOTE | 2025-05-19 04:41 | PM.HP ---
Providers/Chief Complaint Admitting Physician: Angie Allen MD/Infectious disease Primary Care Provider: Cary Monzon DO Chief Complaint: 11Wks , Abd pain History of Present Illness Zulema Malin is a 20 year old female Primigravida at 11 weeks , who is presenting to the hospital today with chief complaints of abdominal pain going on for the past 4 to 5 days. Patient is yet to establish care with OB. About 5 days ago she developed a low-grade fever and vaginal spotting for which she visited with OB for the first time in [place]. States she has had difficulty finding care given that she is on long-term Invega every 3 months. She reports that UA and urine culture were drawn at that visit however results are not available. States she was diagnosed with a UTI, antibiotics were called in however she states she has not received the prescription. She presented to the ER that night on May 14, 2025 for first trimester bleeding. She was noted to have 1 to 2 teaspoons of bright red bleeding. Her H&H was noted to be normal. Bedside ultrasound was performed which showed a live intrauterine with normal heart. Just 3 days prior she had been noted to have a small chorionic hemorrhage. She was given RhoGAM prior to discharge. UA was abnormal at that time, urine culture showed E. coli. She has not yet had any STD evaluation since care is yet to be initiated. She denies any vaginal bleeding or spotting today. States she has had intermittent abdominal cramping for the past 4 to 5 days. Additionally complaining of back pain. Exam shows left-sided CVA tenderness. She was febrile to 100.4 Fahrenheit and reported chills and feeling clammy. Multiple episodes of vomiting are also described and inability to tolerate any p.o. intake. Her last dose of Invega injection was in March. She is no longer on buspirone sertraline or mirtazapine as is seen on her current medication list in the system. Review of Systems General: Reports: 10 or more systems reviewed and unremarkable except in HPI and below Const: Denies: fever(s), chills or body aches Eyes: Denies: change in vision, blurry vision or photophobia ENMT: Reports: hoarseness; Denies: throat pain, enlarged tonsils, odynophagia or nasal congestion Card: Denies: chest pain, palpitations, irregular heart rhythm, edema, swelling of feet/ankles, lightheadedness, pre-syncope, dyspnea on exertion or orthopnea Resp: Denies: dyspnea, productive cough, non-productive cough, wheezing, stridor, pain on inspiration, change in phlegm color, hemoptysis or chest congestion GI: Denies: abdominal pain, nausea, vomiting, hematemesis, coffee ground emesis, dysphagia, heartburn, diarrhea, constipation, GI cramping, change in stool character, hematochezia or melena : Denies: flank pain, difficulty voiding, dysuria, urinary frequency, urinary urgency, urinary hesitancy or hematuria Musc: Denies: neck pain, back pain, extremity pain, joint swelling, joint warmth or deformity Neuro: Denies: headache(s), numbness in extremities, weakness in extremities, sensory changes, difficulty walking, frequent falls, dizziness, vertigo, behavioral changes, Slurred speech present or seizure-like activity Psych: Denies: anxiety, depression, suicidal ideation or homicidal ideation Endo: Denies: polyuria, polydipsia, tired all the time, cold intolerance or hot flashes Navid/Lymph: Denies: easy bruising or easy bleeding Medications/Allergies Home Medications ?Medication ?Instructions ?Recorded ?Confirmed ?Last Taken ?Type buspirone 5 mg tablet 5 mg PO TID 11/14/19 11/28/22 03/09/20 History cetirizine 10 mg capsule 10 mg PO DAILY 11/14/19 11/28/22 03/09/20 History diphenhydramine HCl 25 mg capsule 25 mg PO Q6H PRN allergies 11/14/19 11/28/22 03/08/20 History (Benadryl) epinephrine 0.3 mg/0.3 mL 0.3 mg IM Q30M PRN unknown 11/14/19 11/28/22 Unknown History injection, auto-injector loratadine 10 mg tablet 10 mg PO DAILY 11/14/19 11/28/22 03/09/20 History mirtazapine 15 mg tablet (Remeron) 7.5 mg PO DAILY 11/14/19 11/28/22 03/09/20 History risperidone 2 mg tablet (Risperdal) 2 mg PO DAILY 11/14/19 11/28/22 03/09/20 History sertraline 50 mg tablet (Zoloft) 75 mg PO DAILY 11/14/19 11/28/22 03/09/20 History ibuprofen 400 mg tablet 400 mg PO TID PRN Pain 11/22/19 11/28/22 Unknown History ondansetron 4 mg disintegrating 4 mg PO Q8H PRN nausea/vomiting 11/22/19 11/28/22 Unknown History tablet famotidine 20 mg tablet 20 mg PO BID 03/09/20 11/28/22 03/09/20 History melatonin 3 mg tablet 3 mg PO BEDTIME 03/09/20 11/28/22 03/08/20 History cam boot to left #1 ea 08/29/22 11/28/22 Unknown Rx ASO to left #1 ea 10/12/22 11/28/22 Unknown Rx prednisone 10 mg tablet 10 mg PO DIRECTED #65 tabs 02/14/24 Unknown Rx triamcinolone acetonide 0.5 % 1 applic topical BID PRN Rash #30 02/14/24 Unknown Rx topical cream grams Allergies Allergy/AdvReac Type Severity Reaction Status Date / Time adhesive tape Allergy Unknown Verified 05/18/25 21:15 Alpha-Gal Allergy ALGY-Anaphy Verified 05/18/25 21:15 (Nyylgwdpw-Modsq-0,3-Gala laxis benztropine Allergy Unknown Verified 05/19/25 00:10 crisaborole Allergy Unknown Verified 05/19/25 00:10 doxycycline Allergy vomit Verified 05/18/25 21:15 Fish Containing Products Allergy Unknown Verified 05/19/25 00:10 lactose Allergy Unknown Verified 05/19/25 00:10 methylprednisolone (From Allergy Unknown Verified 05/19/25 00:10 Solu-Medrol) naproxen Allergy vomit Verified 05/18/25 21:15 olanzapine Allergy Unknown Verified 05/19/25 00:10 shellfish derived Allergy Unknown Verified 05/19/25 00:10 spinach Allergy Unknown Verified 05/19/25 00:10 PFSH Acute PFSH: Medical History ADHD Bipolar 1 disorder Chronic sinusitis Tinnitus Nasal turbinate hypertrophy Deviated septum Allergic rhinitis Social History (Reviewed 05/19/25 @ 05:26 by TIFFANI Brito Smoking and tobacco/nicotine status: never used tobacco/nicotine Second hand smoke exposure: Yes Alcohol intake: never Substance/Drug Use: never Highest education level completed: 8th Grade Pets and animals: Yes Pets & animals: dog(s) Vitals/I&O/Wt Last Vital Signs Temp 100.4 F H 05/19/25 02:42 Pulse 138 H 05/19/25 02:42 Resp 18 05/19/25 02:42 BP 124/69 05/19/25 02:42 Pulse Ox 99 05/19/25 02:42 O2 Del Method Room Air 05/19/25 04:18 05/18/25 05/18/25 05/19/25 14:59 22:59 06:59 Intake Total 1000 / 1000 Balance 1000 / 1000 Weight last 48 hrs Weight 70.307 kg Physical Exam Narrative: General: No acute distress, AO x3 HEENT: PERRLA, pupils bilaterally equal and reactive, pallors not present Chest: Normal vesicular breath sounds, no added sounds, equal good air entry bilaterally CVS: S1-S2 regular, no murmurs, no tachycardia, no gallops, no rubs Abdomen: Soft, nontender, no organomegaly, bowel sounds present Neuro: No focal deficits, no facial deformity, AO x3, power 5/5 in all limbs Data 05/18/25 22:25 05/18/25 22:25 Micro: NAME: Zulema Malin LOC: U #: [id number] AGE/SX: 20/F ROOM: RE05/14/[address]: Jannie Newman : 2005 BED: DIS: FAX #: STATUS: [facility] TLOC: Spec #: [id number] Rickey: 05/14/25 Status: COMP Req #: [id number] Recd: 05/14/[address]: Jannie Newman Src: Urine CC SpDesc: Ordered: Procedure Result Verified Site Urine Culture Final 05/17/25-1206 Organism 1 Escherichia coli [place] Count >100,000 CFU/ml DAY 2 E coli M.I.C. RX --------- ------ * Amikacin <=16 S * Amoxicillin/Clavulanate 16/ I * Ampicillin >16 R * Ampicillin/Sulbactam >16/8 R * Aztreonam <=4 S * Cefepime <=8 S * Ceftriaxone <=1 S * Cefuroxime <=4 S * Ciprofloxacin <=1 S * Gentamicin <=2 S * Imipenem <=1 S * Levofloxacin <=2 S * Nitrofurantoin <=32 S * Tetracycline <=4 S * Trimethoprim/Sulfamethoxazole <=2/38 S * Piperacillin/Tazobactam <=16 S Urine Culture Preliminary (changed) 05/16/25-727 Organism 1 Gram Negative Rods [place] Count >100,000 CFU/ml DAY 1, RESULTS TO FOLLOW Other data: Radiology Impressions Renal Ultrasound 05/19/25 01:14 IMPRESSION: Unremarkable kidneys and bladder. Laboratory Results WBC 16.46 10^3/uL (4.5-13.0) H 05/18/25 22:25 RBC 4.64 10^6/uL (3.85-5.65) 05/18/25 22:25 Hgb 12.90 g/dL (12.4-14.8) 05/18/25 22:25 Hct 37.8 % (36-47) 05/18/25 22:25 MCV 81.5 fl (85-98) L 05/18/25 22:25 MCH 27.8 pg (27-33) 05/18/25 22:25 MCHC 34.1 g/dL (30-55) 05/18/25 22:25 RDW 13.3 % (12.1-15.1) 05/18/25 22:25 Plt Count 196 10^3/cmm (157-399) 05/18/25 22:25 MPV 10.5 fL (7.4-10.4) H 05/18/25 22:25 Neut % (Auto) 86.2 % 05/18/25 22:25 Lymph % (Auto) 5.2 % 05/18/25 22:25 [place] % (Auto) 7.9 % 05/18/25 22:25 Eos % (Auto) 0.1 % 05/18/25 22:25 Baso % (Auto) 0.2 % 05/18/25 22:25 Neut # (Auto) 14.20 10^3/uL (1.8-8.0) H 05/18/25 22:25 Lymph # (Auto) 0.9 10^3/uL (1.5-6.5) L 05/18/25 22:25 [place] # (Auto) 1.3 10^3/uL (0.2-0.9) H 05/18/25 22:25 Eos # (Auto) 0.0 10^3/uL (0.0-0.8) 05/18/25 22: Baso # (Auto) 0.0 10^3/uL (0.0-0.1) 05/18/25 22: Nucleated RBC % (auto) 0 % 05/18/25: Nucleated RBCs # 0.0 /100WBC 05/18/25 22:25 Sodium 133 mmol/L (136-145) L 05/18/25 22:25 Potassium 3.7 mmol/L (3.5-5.1) 05/18/25 22: Chloride 96 mmol/L (98-107) L 05/18/25 22: Carbon Dioxide 19 mmol/L (22-29) L 05/18/25 22:25 Anion Gap 21.7 (5-19) H 05/18/25 22:25 BUN 8 mg/dL (6-20) 05/18/25 22: Creatinine 0.9 mg/dL (0.5-0.9) 05/18/25 22:25 GFR Calculation 79.8 mL/min (90-130) L 05/18/25 22:25 Glucose 126 mg/dL (65-115) H 05/18/25 22:25 Calculated Osmolality 276 mOsm/kg (285-295) L 05/18/25 22:25 Calcium 9.2 mg/dL (8.5-10.5) 05/18/25: Total Bilirubin 0.5 mg/dL (0.15-1.2) 05/18/25 22: AST 11 U/L (0-32) 05/18/25 22:25 ALT 10 U/L (0-33) 05/18/25 22:25 Alkaline Phosphatase 97 U/L (35-105) 05/18/25 22: Total Protein 7.6 g/dL (6.6-8.7) 05/18/25 22:25 Albumin 3.8 g/dL (3.5-5.2) 05/18/25 22: Globulin 3.8 g/dL (1.3-4.6) 05/18/25 22:25 Urine Color Dark yellow (Yellow) A 05/19/25 00:00 Urine Appearance Turbid (CLEAR) A 05/19/25 00:00 Urine pH 5.5 (5-7) 05/19/25 00:00 Ur Specific [place] 1.016 (1.005-1.030) 05/19/25 00:00 Urine Protein 3+ (Negative) A 05/19/25 00:00 Urine Glucose (UA) Negative (Normal) 05/19/25 00:00 Urine Ketones 1+ (Negative) H 05/19/25 00:00 Urine Blood 3+ (Negative) A 05/19/25 00:00 Urine Nitrate Negative (Negative) 05/19/25 00:00 Urine Bilirubin 1+ (Negative) H 05/19/25 00:00 Urine Urobilinogen 1.0 mg/dL (Negative) 05/19/25 00:00 Ur Leukocyte Esterase 3+ (Negative) A 05/19/25 00:00 Urine RBC 11-20 /hpf (0-2) H 05/19/25 00:00 Urine WBC >100 /hpf (0-5) H 05/19/25 00:00 Ur Squamous Epith Cells 11-20 /hpf (0-5) H 05/19/25 00:00 Amorphous Sediment Not Reportable 05/19/25 00:00 Urine Bacteria 4+ /hpf (NONE) H 05/19/25 00:00 Hyaline Casts 20.18 /lpf 05/19/25 00:00 A&P Assessment and plan 1. Pyelonephritis affecting in first trimester: 20-year-old lady, primigravida, 11 weeks , presenting to the emergency room after having been diagnosed with a UTI 5 days ago on May 14, 2025. She has not received any antibiotics as outpatient. Most recent urine culture taken here on the third was showing E. coli. Currently with high-grade fever, chills, persistent vomiting, and left CVA tenderness concern is for pyelonephritis. She has received 1 g of IV ceftriaxone thus far. Will continue with ceftriaxone 1 g IV every 24 hours in keeping with her urine culture results. IV hydration with lactated Ringer's at 125 cc an hour as started in the emergency room to be continued at this time. Lactate has not been drawn yet, ordered stat lactate with reflex now. Currently patient's blood pressure is well-maintained. Heart rate of 138 upon initial exam. EKG ordered and reviewed, sinus tachycardia noted. Additionally blood cultures Have not been sent. ER was able to locate blood cultures that were collected at midnight prior to the administration of antibiotics and these will now be sent down to the lab. UA noted abnormal with greater than 100 WBCs, 3+ leukocyte esterase. Pending urine culture today. Additionally will proceed with STD screening with urine GC and chlamydia NAAT. Screen for STDs with RPR, HIV and hepatitis panel. 2. First trimester bleeding: Patient was recently in the ER on the with vaginal bleeding. She reports this has since resolved after having received RhoGAM on May 14, 2025. Will obtain OB ultrasound today to assess for heart rate and viability. Having pyelonephritis puts her at a high risk of miscarriage. Consulted OB/ WATCH TRAIN ASSEMBLER. Plan: Patient's home medication list has been reviewed. Her mother has a list with her. Patient is on clonidine 0.1 mg as needed for anxiety, famotidine 20 mg as needed, hydroxyzine 25 mg as needed, Invega IM injection every 3 months, levocetirizine 5 mg as needed, loratadine 5 mg as needed, Robaxin 500 mg as needed and topical triamcinolone due to a history of eczema. DVT prophylaxis: SCDs only. Holding off on any anticoagulation due to recent history of bleeding. Full code PDMP PDMP Reviewed: Not Reviewed Attestations Medical Necessity Statement*: Greater than 2 midnight stay is anticipated Coding Level of Care Code Acute Code for Chg Fwd High MDM includes number and complexity of problems actively addressed during encounter, amount and/or complexity of data reviewed/ordered and described risk of complication, morbidity or mortality of management as documented Diagnoses Pyelonephritis affecting in first trimester O23.01 First trimester bleeding O20.9
--- NOTE | 2025-05-19 05:08 | ECG_ITS ---
[facility]: 2025-05-19 Pat Name: Zulema Malin Department: Room: [facility] Gender: Female Foundation Relations Director: : 2005 Requested By: Angie Allen Order Number: [id number] Reading MD: NABIL HINDS Measurements Intervals [place] Rate: 103 P: 65 UT: 150 QRS: 74 QRSD: 90 T: 40 QT: 341 QTc: 446 Interpretive Statements SINUS TACHYCARDIA NONSPECIFIC ST & T-WAVE ABNORMALITY ABNORMAL RHYTHM ECG No previous ECG available for comparison Electronically Signed On 05-19-2025 10:46:53 CDT by NABIL HINDS [email or web address]
--- NOTE | 2025-05-19 05:14 | USR_ITS ---
PROCEDURE INFORMATION: Exam: US , Limited Exam date and time: 05/19/2025 5:52 AM Age: 20 years old Clinical indication: Screening exam; Other: PT having UTI issues; ; Additional info: Assess heart/viability LABS AND CLINICAL REPORTS: Gestational age (Established): 10 w 1 d Estimated due date (Established): 12/14/2025 TECHNIQUE: Imaging protocol: Real-time ultrasound of the maternal uterus with image documentation. Exam focused on the clinical indication. COMPARISON: US renal BI* [id number] 05/19/2025 3:02 AM FINDINGS: Gestation: Single live intrauterine gestation. heart rate: 185 bpm BIOMETRY: Gestational age (AUA): Estimated gestational age 11 weeks 1 day based on the current biometry; previously estimated 10 weeks 1 day. [place] rump length (CRL): Fetus crown-rump length 4.31 cm. MATERNAL: Right ovary/adnexa: Maternal right ovary obscured. Left ovary/adnexa: Maternal left ovary obscured. US/US OB limited [id number] IMPRESSION: 1. Single live intrauterine gestation. 2. Negative for acute pathology.
[2025-05-19 05:58] LABS: Lactic Sepsis W/Reflex 1.3 mmol/L (0.5-2.2)
[2025-05-19 06:27] LABS: HIV 1 & 2 Antigen Non-Reactive (Non-Reactiv)
[2025-05-19 06:38] LABS: Hepatitis A Antibody IgM Non-Reactive (Nonreactive); Hepatitis B Surface Antigen Non-Reactive (Nonreactive)
[2025-05-19 06:43] LABS: Respiratory Syncytial Virus Ce NEGATIVE (Negative); SARS-CoV-2 PCR NEGATIVE (Negative)
[2025-05-19 07:04] LABS: Neisseria Gonorrhea NOT DETECTED (Negative)
[2025-05-19] MEDS: ondansetron 2 mg/ML SDV 2 mL 4 MG IVP ×2 (08:57→17:01)
[2025-05-19] MEDS: PRENATAL VIT NO.130/IRON/FOLIC 1 EACH TABLET PO (11:23)
--- NOTE | 2025-05-19 12:22 | P.PN_ITS ---
Subjective 2 Subjective: Overall patient is feeling better. She was having a lot of generalized pain prior to admission and nausea and vomiting for the 3 to 4 days prior to admission. She remains a little nauseous but no vomiting since admission. Her generalized pain is resolved while at rest but she is concerned that with activity it will return. Her mother was on speaker phone during exam. They were concerned with the continuing her home medications. Vitals/I&O/Wt Last Vital Signs Temp 99.6 F 05/19/25 11:04 Pulse 66 05/19/25 11:04 Resp 15 05/19/25 11:04 BP 95/63 05/19/25 11:04 Pulse Ox 99 05/19/25 11:04 O2 Del Method Room Air 05/19/25 11:04 05/18/25 05/19/25 05/19/25 22:59 06:59 14:59 Intake Total 1000 / 1000 1240 / 1240 Balance 1000 / 1000 1240 / 1240 Weight last 48 hrs Weight 69.173 kg Weight 70.307 kg Physical Exam 2 Narrative: Patient is alert and oriented no acute distress at time of exam Heart regular normal S1-S2 without murmurs clicks gallops or rubs Lungs clear to auscultation without wheezes rales or rhonchi Abdomen some mild tenderness around the umbilicus normal active bowel sounds no hepatosplenomegaly Extremities no clubbing cyanosis or edema Data 05/18/25 22:25 05/18/25 22:25 Micro: Microbiology 05/19/25 05:19 Blood Culture - Preliminary Blood SPECIMEN COLLECTED 05/19/25 00:07 Blood Culture - Preliminary Blood SPECIMEN COLLECTED A&P Assessment and plan 1. Pyelonephritis affecting in first trimester: 20-year-old lady, primigravida, 11 weeks , presenting to the emergency room after having been diagnosed with a UTI 5 days ago on May 14, 2025. She has not received any antibiotics as outpatient. Most recent urine culture taken here on the was showing E. coli. Currently with high-grade fever, chills, persistent vomiting, and left CVA tenderness concern is for pyelonephritis. She has received 1 g of IV ceftriaxone thus far. Will continue with ceftriaxone 1 g IV every 24 hours in keeping with her urine culture results. IV hydration with lactated Ringer's at 125 cc an hour as started in the emergency room to be continued at this time. Lactic acid negative at 1.3 ER was able to locate blood cultures that were collected at midnight prior to the administration of antibiotics and these will now be sent down to the lab. UA noted abnormal with greater than 100 WBCs, 3+ leukocyte esterase. Pending urine culture Additionally will proceed with STD screening with urine GC and chlamydia NAAT. Screen for STDs with RPR, HIV and hepatitis panel. 2. First trimester bleeding: Patient was recently in the ER on the third with vaginal bleeding. She reports this has since resolved after having received RhoGAM on May 14, 2025. Obstetrical ultrasound shows a single live intrauterine gestation with a estimated age of 11 weeks and 1 day. Negative for acute pathology Consulted OB/ CORPORATE ACCOUNTING MANAGER. Plan: Patient and mother wanted her home medications restarted and they were added as appropriate. DVT prophylaxis: SCDs only. Holding off on any anticoagulation due to recent history of bleeding. Full code PDMP PDMP Reviewed: Not Reviewed Attestations 2 Medical Necessity Statement*: Anticipate greater than 2 midnight stay for the treatment of UTI/pyelonephritis requiring IV antibiotics in this 11-week young woman Coding Level of Care Code Acute Code for Chg Fwd Diagnoses Pyelonephritis affecting in first trimester O23.01 First trimester bleeding O20.9
--- NOTE | 2025-05-19 17:20 | PM.OBGYCN ---
Providers/Reason for Consult Consulting Physican/Specialty*: Edwin Bourgeois MD Reason for Consult*: pyelonephritis Requesting Physcian: Dr. Allen Attending Physician: Andry Mora DO Primary Care Provider: Cary Monzon DO FIRESETTER Consult HPI History of Present Illness Zulema Malin is a 20 year old female G1 At 11 w 1 d Based on ultrasound done today Was admitted to Medicine Service today for treatment of pyelonephritis + mild abdominal pain No nausea, vomiting No vaginal bleeding Medications/Allergies Home Medications ?Medication ?Instructions ?Recorded ?Confirmed ?Last Taken ?Type diphenhydramine HCl 25 mg capsule 25 mg PO Q6H PRN allergies 11/14/19 05/19/25 03/08/20 History (Benadryl) epinephrine 0.3 mg/0.3 mL 0.3 mg IM Q30M PRN unknown 11/14/19 05/19/25 Unknown History injection, auto-injector loratadine 10 mg tablet 10 mg PO DAILY 11/14/19 05/19/25 03/09/20 History ibuprofen 400 mg tablet 400 mg PO TID PRN Pain 11/22/19 05/19/25 Unknown History famotidine 20 mg tablet 20 mg PO BID 03/09/20 05/19/25 05/18/25 09:00 History cam boot to left #1 ea 08/29/22 05/19/25 Unknown Rx ASO to left #1 ea 10/12/22 05/19/25 Unknown Rx triamcinolone acetonide 0.5 % 1 applic topical BID PRN Rash #30 02/14/24 05/19/25 Unknown Rx topical cream grams clonidine HCl 0.1 mg tablet 0.1 mg PO TID 05/19/25 05/19/25 05/18/25 09:00 History levocetirizine 5 mg tablet 5 mg PO QPM 05/19/25 05/19/25 05/17/25 18:00 History paliperidone palm (3 month) 410 400 mg IM Q90D 05/19/25 05/19/25 03/13/25 History mg/1.32 mL intramuscular syringe (Invega Trinza) vitamins with calcium 1 tab PO QPM 05/19/25 05/19/25 05/17/25 20:00 History no.72-iron 27 mg-folic acid 1 mg tablet (M-Estefania Plus) promethazine 25 mg tablet 25 mg PO BID 05/19/25 05/19/25 05/18/25 08:00 History Allergies Allergy/AdvReac Type Severity Reaction Status Date / Time adhesive tape Allergy Unknown Verified 05/18/25 21:15 Alpha-Gal Allergy ALGY-Anaphy Verified 05/18/25 21:15 (Tfhccesch-Dbmbt-4,3-Gala laxis benztropine Allergy Unknown Verified 05/19/25 00:10 crisaborole Allergy Unknown Verified 05/19/25 00:10 doxycycline Allergy vomit Verified 05/18/25 21:15 Fish Containing Products Allergy Unknown Verified 05/19/25 00:10 lactose Allergy Unknown Verified 05/19/25 00:10 methylprednisolone (From Allergy Unknown Verified 05/19/25 00:10 Solu-Medrol) naproxen Allergy vomit Verified 05/18/25 21:15 olanzapine Allergy Unknown Verified 05/19/25 00:10 shellfish derived Allergy Unknown Verified 05/19/25 00:10 spinach Allergy Unknown Verified 05/19/25 00:10 Current Medications Generic Name Dose Route Start Last Admin Trade Name Freq PRN Reason Stop Dose Admin Acetaminophen 650 mg 05/19/25 04:55 05/19/25 18:23 Acetaminophen 325 Mg Tablet PO 650 mg Q6H PRN Administration Mild/Mod Pain Or Temp >/= 101 Cetirizine HCl 5 mg 05/19/25 21:00 05/19/25 21:22 Cetirizine 10 Mg Tablet PO 5 mg BEDTIME LADARIUS Administration Famotidine 20 mg 05/19/25 09:00 05/19/25 17:01 Famotidine 20 Mg Tablet PO 20 mg BID LADARIUS Administration Lactated Ringer's 1,000 mls @ 125 mls/hr 05/19/25 01:45 05/19/25 20:20 Lactated Ringers IV 125 mls/hr .Q8H LADARIUS Administration Ondansetron HCl 4 mg 05/19/25 04:55 05/19/25 17:01 Ondansetron 2 Mg/Ml Sdv 2 Ml IVP 4 mg Q8H PRN Administration vomiting, or N/V if npo Prenat Multivit/[place]/Iron/Folic Ac 1 each 05/19/25 11:00 05/19/25 11:23 Vit No.130/Iron/Folic 1 Each Tablet PO 1 each DAILY LADARIUS Administration Promethazine HCl 25 mg 05/19/25 11:00 05/19/25 11:23 Promethazine 25 Mg Tablet PO 25 mg DAILY LADARIUS Administration Promethazine HCl 25 mg 05/19/25 21:00 05/19/25 21:22 Promethazine 25 Mg Tablet PO 25 mg BEDTIME LADARIUS Administration PFSH FIRESETTER PFSH: Medical History (Updated 05/19/25 @ 23:01 by Edwin Bourgeois MD) ADHD Bipolar 1 disorder Chronic sinusitis Tinnitus Nasal turbinate hypertrophy Deviated septum Allergic rhinitis Social History Smoking and tobacco/nicotine status: never used tobacco/nicotine Second hand smoke exposure: Yes Alcohol intake: never Substance/Drug Use: never Highest education level completed: 8th Grade Pets and animals: Yes Pets & animals: dog(s) Vitals/I&O/Wt Last Vital Signs Temp 98.2 F 05/19/25 20:00 Pulse 110 H 05/19/25 20:00 Resp 16 05/19/25 20:00 BP 93/60 05/19/25 20:00 Pulse Ox 93 05/19/25 20:00 O2 Del Method Room Air 05/19/25 20:00 05/19/25 05/19/25 05/19/25 06:59 14:59 22:59 Intake Total 1000 / 1000 1720 / 1720 1480 / 3200 Output Total 450 / 450 Balance 1000 / 1000 1720 / 1720 1030 / 2750 Weight last 48 hrs Weight 152 lb 8 oz Weight 155 lb Physical Exam Narrative: Weight 152 lbs; 5?4? VS normal General comfortable Abd: soft, nontender OB sono 05-19-25 11 w 1 d Data 05/18/25 22:25 05/18/25 22:25 Micro: Microbiology 05/19/25 05:19 Blood Culture - Preliminary Blood SPECIMEN COLLECTED 05/19/25 00:07 Blood Culture - Preliminary Blood SPECIMEN COLLECTED A&P Assessment and plan 1. : 11 w 1 d shrestha gestation Patient wants to get care in [place] Will make appointment to see me at [facility] clinic 2. Pyelonephritis affecting in first trimester: on antibiotics PDMP PDMP Reviewed: Not Reviewed Coding Level of Care Code Acute Code for Chg Fwd Diagnoses Z34.90 Pyelonephritis affecting in first trimester O23.01
[2025-05-20] VITALS (9 sets, daily range): BP systolic 90–104; BP diastolic 58–70; PULSE 73–120; RESP 16–17; TEMP 36.3–37.8; O2SAT 95–99
[2025-05-20 05:37] LABS: Hematocrit 29.9 % (36-47); Hemoglobin 9.60 g/dL (12.4-14.8); Mean Corpuscular HGB Conc 32.1 g/dL (30-55); Mean Corpuscular Hemoglobin 27.5 pg (27-33); Mean Corpuscular Volume 85.7 fl (85-98); Nucleated Red Blood Cells % 0 %; Platelet Count 172 10^3/cmm (157-399); Red Blood Count 3.49 10^6/uL (3.85-5.65); White Blood Count 13.47 10^3/uL (4.5-13.0)
[2025-05-20 06:01] LABS: Alanine Aminotransferase 7 U/L (0-33); Albumin Level 2.7 g/dL (3.5-5.2); Alkaline Phosphatase 94 U/L (35-105); Anion Gap 18.0 (5-19); Aspartate Amino Transferase 10 U/L (0-32); Blood Urea Nitrogen 5 mg/dL (6-20); Calcium 8.4 mg/dL (8.5-10.5); Carbon Dioxide 19 mmol/L (22-29); Chloride 103 mmol/L (98-107); Creatinine Clr Calc Pharmacy 122.2349; Globulin 3.1 g/dL (1.3-4.6); Glucose 138 mg/dL (65-115); Osmolality Calculated 283 mOsm/kg (285-295); Potassium 3.0 mmol/L (3.5-5.1); Sodium 137 mmol/L (136-145); Total Protein 5.8 g/dL (6.6-8.7)
[2025-05-20] MEDS: PRENATAL VIT NO.130/IRON/FOLIC 1 EACH TABLET PO (09:48)
[2025-05-20] MEDS: ondansetron 2 mg/ML SDV 2 mL 4 MG IVP (12:06)
--- NOTE | 2025-05-20 13:25 | P.PN_ITS ---
Subjective 2 Subjective: Doing much better today. She is seen sitting on the bed and eating and drinking. She describes some mild right mid abdominal discomfort. She is able to walk to the bathroom easier. Mother states that she feels the patient is considerably improved. Vitals/I&O/Wt Last Vital Signs Temp 98.2 F 05/20/25 11:43 Pulse 105 H 05/20/25 11:43 Resp 17 05/20/25 11:43 BP 98/63 05/20/25 11:43 Pulse Ox 96 05/20/25 11:43 O2 Del Method Room Air 05/20/25 04:00 05/19/25 05/20/25 05/20/25 22:59 06:59 14:59 Intake Total 1480 / 3200 1000 / 4200 240 / 240 Output Total 450 / 450 900 / 1350 900 / 900 Balance 1030 / 2750 100 / 2850 -660 / -660 Weight last 48 hrs Weight 68.946 kg Weight 69.173 kg Weight 70.307 kg Physical Exam 2 Narrative: Patient is alert and oriented no acute distress at time of exam Heart regular normal S1-S2 without murmurs clicks gallops or rubs Lungs clear to auscultation without wheezes rales or rhonchi Abdomen some mild tenderness around the umbilicus normal active bowel sounds no hepatosplenomegaly Extremities no clubbing cyanosis or edema Data 05/20/25 04:34 05/20/25 04:34 Micro: Microbiology 05/19/25 00:00 Urine Culture - Preliminary Urine,Clean Catch Gram Negative Rods 05/19/25 05:19 Blood Culture - Preliminary Blood NEGATIVE TO DATE 05/19/25 00:07 Blood Culture - Preliminary Blood NEGATIVE TO DATE A&P Assessment and plan 1. Pyelonephritis affecting in first trimester: 20-year-old lady, primigravida, 11 weeks , presenting to the emergency room after having been diagnosed with a UTI 5 days ago on May 14, 2025. She has not received any antibiotics as outpatient. Most recent urine culture taken here on the was showing E. coli. Currently with high-grade fever, chills, persistent vomiting, and left CVA tenderness concern is for pyelonephritis. She has received 1 g of IV ceftriaxone thus far. Will continue with ceftriaxone 1 g IV every 24 hours in keeping with her urine culture results. IV hydration with lactated Ringer's at 125 cc an hour as started in the emergency room to be continued at this time. Lactic acid negative at 1.3 ER was able to locate blood cultures that were collected at midnight prior to the administration of antibiotics and these will now be sent down to the lab. UA noted abnormal with greater than 100 WBCs, 3+ leukocyte esterase. Pending urine culture Additionally will proceed with STD screening with urine GC and chlamydia NAAT. Screen for STDs with RPR, HIV and hepatitis panel. 2. First trimester bleeding: Patient was recently in the ER on the third with vaginal bleeding. She reports this has since resolved after having received RhoGAM on May 14, 2025. Obstetrical ultrasound shows a single live intrauterine gestation with a estimated age of 11 weeks and 1 day. 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 Plan: Responding well to antibiotics. WBC count is decreasing clinically she is markedly improved. Awaiting to see if urine cultures are different than obtained earlier in the week. We should have these results later today or tomorrow morning. Will DC IV fluids after current bag and encourage p.o. intake. Mother and patient state all medications were ordered appropriately from home as requested DVT prophylaxis: SCDs only. Holding off on any anticoagulation due to recent history of bleeding. Full code PDMP PDMP Reviewed: Not Reviewed Attestations 2 Medical Necessity Statement*: Anticipate greater than 2 midnight stay for the treatment of UTI/pyelonephritis requiring IV antibiotics in this 11-week young woman Coding Level of Care Code Acute Code for Chg Fwd Diagnoses Pyelonephritis affecting in first trimester O23.01 First trimester bleeding O20.9
[2025-05-20 13:34] LABS: RPR w(Moniotor) w/REFL Titer NON-REACTIVE (NON-REACTIVE)
[2025-05-20] MEDS: cefTRIAXone 1,000 mg SDV 1000 MG IVP (23:13)
[2025-05-21 04:00] VITALS: BP 110/64; PULSE 118; RESP 16; TEMP 36.9; O2SAT 97
[2025-05-21 04:58] LABS: Hematocrit 31.1 % (36-47); Hemoglobin 10.20 g/dL (12.4-14.8); Mean Corpuscular HGB Conc 32.8 g/dL (30-55); Mean Corpuscular Hemoglobin 27.2 pg (27-33); Mean Corpuscular Volume 82.9 fl (85-98); Nucleated Red Blood Cells % 0 %; Platelet Count 218 10^3/cmm (157-399); Red Blood Count 3.75 10^6/uL (3.85-5.65); White Blood Count 9.62 10^3/uL (4.5-13.0)
[2025-05-21 05:20] LABS: Anion Gap 16.3 (5-19); Blood Urea Nitrogen 4 mg/dL (6-20); Calcium 8.9 mg/dL (8.5-10.5); Carbon Dioxide 22 mmol/L (22-29); Chloride 99 mmol/L (98-107); Creatinine Clr Calc Pharmacy 141.7507; Glucose 95 mg/dL (65-115); Osmolality Calculated 275 mOsm/kg (285-295); Potassium 3.3 mmol/L (3.5-5.1); Sodium 134 mmol/L (136-145)
[2025-05-21 06:00] VITALS: PULSE 100
[2025-05-21 07:05] VITALS: BP 95/65; PULSE 79; RESP 14; TEMP 36.7; O2SAT 97
[2025-05-21] MEDS: PRENATAL VIT NO.130/IRON/FOLIC 1 EACH TABLET PO (08:44)
--- NOTE | 2025-05-21 09:10 | P.DS_ITS ---
Discharge Providers Date of Admission: 05/19/25 03:24 Date of Discharge: May 21, 2025 Attending Provider at Admission: Angie Allen MD Attending Provider at Discharge: Andry Mora DO Primary Care Provider: Cary Monzon DO Diagnoses at Discharge Discharge Diagnosis 1. Pyelonephritis affecting in first trimester: 2. First trimester bleeding: Reason for Visit Reason for Visit: 11Wks , Abd pain Brief Histor y: Zulema Malin is a 20 year old female Primigravida at 11 weeks , who is presenting to the hospital today with chief complaints of abdominal pain going on for the past 4 to 5 days. Patient is yet to establish care with OB. About 5 days ago she developed a low-grade fever and vaginal spotting for which she visited with OB for the first time in [place]. States she has had difficulty finding care given that she is on long-term Invega every 3 months. She reports that UA and urine culture were drawn at that visit however results are not available. States she was diagnosed with a UTI, antibiotics were called in however she states she has not received the prescription. She had also reported first trimester bleeding. Hospital Course Hospital Course Patient was diagnosed with pyelonephritis affecting in the first trimester. She was placed on Rocephin due to the E. coli growing from the 05/14/2025 culture. Patient received IV hydration. Consultation with YARD MOTOR OPERATOR was obtained. Ultrasound showed the baby to be 11 weeks 1 day. With no abnormalities. Patient responded well to treatment and improved over the course of hospitali zation with her white count returning to normal. She was able to ambulate without discomfort. She has had no further vaginal bleeding. The risk of miscarriage has been described to the patient and the patient's mother. I gave her strong instructions of how to take the high-dose Keflex for 12 more days. I explained that while it was cumbersome to take doses 4 times a day I explained it was the best course to take for her . They displayed understanding of the seriousness of her condition and the effect on the baby. They are agreeable to the 12-day course of Keflex 4 times a day. I confirmed use of Keflex in first trimester with Dr. Bourgeois and with our pharmacist. Notes that culture and sensitivity results from May 19 are not yet available. However patient was not treated since May 14 culture and sensitivity results and thus our treatment was based on those results. And the patient is clinically markedly improved. Physical Exam Narrative: Patient is alert and oriented no acute distress at time of exam Heart regular normal S1-S2 without murmurs clicks gallops or rubs Lungs clear to auscultation without wheezes rales or rhonchi Abdomen some mild tenderness around the umbilicus normal active bowel sounds no hepatosplenomegaly Extremities no clubbing cyanosis or edema Discharge Data Studies Completed and Pending Completed Studies During Hospitalization Category Date Time Status US OB limited 23639 Routine Ultrasound 05/19/25 05:14 Completed US renal BI* 92400 Stat Ultrasound 05/19/25 01:14 Completed Pending at discharge Category Date Time Status Blood Culture Stat Lab 05/19/25 05:19 Results Urine Culture Stat Lab 05/19/25 00:00 Results Radiology Impressions Renal Ultrasound 05/19/25 01:14 IMPRESSION: Unremarkable kidneys and bladder. Obstetrics Ultrasound 05/19/25 05:14 IMPRESSION: 1. Single live intrauterine gestation. 2. Negative for acute pathology. Laboratory Results WBC 9.62 10^3/uL (4.5-13.0) 05/21/25 04:48 RBC 3.75 10^6/uL (3.85-5.65) L 05/21/25 04:48 Hgb 10.20 g/dL (12.4-14.8) L 05/21/25 04:48 Hct 31.1 % (36-47) L 05/21/25 04:48 MCV 82.9 fl (85-98) L 05/21/25 04:48 MCH 27.2 pg (27-33) 05/21/25 04:48 MCHC 32.8 g/dL (30-55) 05/21/25 04:48 RDW 13.8 % (12.1-15.1) 05/21/25 04:48 Plt Count 218 10^3/cmm (157-399) 05/21/25 04:48 MPV 10.4 fL (7.4-10.4) 05/21/25 04:48 Neut % (Auto) 66.1 % 05/21/25 04:48 Lymph % (Auto) 20.1 % 05/21/25 04:48 Schleicher % (Auto) 12.8 % 05/21/25 04:48 Eos % (Auto) 0.4 % 05/21/25 04:48 Baso % (Auto) 0.2 % 05/21/25 04:48 Neut # (Auto) 6.36 10^3/uL (1.8-8.0) 05/21/25 04:48 Lymph # (Auto) 1.9 10^3/uL (1.5-6.5) 05/21/25 04:48 Schleicher # (Auto) 1.2 10^3/uL (0.2-0.9) H 05/21/25 04:48 Eos # (Auto) 0.0 10^3/uL (0.0-0.8) 05/21/25 04:48 Baso # (Auto) 0.0 10^3/uL (0.0-0.1) 05/21/25 04:48 Nucleated RBC % (auto) 0 % 05/21/25 04:48 Nucleated RBCs # 0.0 /100WBC 05/21/25 04:48 Sodium 134 mmol/L (136-145) L 05/21/25 04:48 Potassium 3.3 mmol/L (3.5-5.1) L 05/21/25 04:48 Chloride 99 mmol/L (98-107) 05/21/25 04:48 Carbon Dioxide 22 mmol/L (22-29) 05/21/25 04:48 Anion Gap 16.3 (5-19) 05/21/25 04:48 BUN 4 mg/dL (6-20) L 05/21/25 04:48 Creatinine 0.6 mg/dL (0.5-0.9) 05/21/25 04:48 GFR Calculation 127.5 mL/min (90-130) 05/21/25 04:48 Glucose 95 mg/dL (65-115) 05/21/25 04:48 Calculated Osmolality 275 mOsm/kg (285-295) L 05/21/25 04:48 Lactic Acid 1.3 mmol/L (0.5-2.2) 05/19/25 05:19 Calcium 8.9 mg/dL (8.5-10.5) 05/21/25 04:48 Total Bilirubin 0.4 mg/dL (0.15-1.2) 05/20/25 04:34 AST 10 U/L (0-32) 05/20/25 04:34 ALT 7 U/L (0-33) 05/20/25 04:34 Alkaline Phosphatase 94 U/L (35-105) 05/20/25 04:34 Total Protein 5.8 g/dL (6.6-8.7) L 05/20/25 04:34 Albumin 2.7 g/dL (3.5-5.2) L 05/20/25 04:34 Globulin 3.1 g/dL (1.3-4.6) 05/20/25 04:34 Urine Color Dark yellow (Yellow) A 05/19/25 00:00 Urine Appearance Turbid (CLEAR) A 05/19/25 00:00 Urine pH 5.5 (5-7) 05/19/25 00:00 Ur Specific [place] 1.016 (1.005-1.030) 05/19/25 00:00 Urine Protein 3+ (Negative) A 05/19/25 00:00 Urine Glucose (UA) Negative (Normal) 05/19/25 00:00 Urine Ketones 1+ (Negative) H 05/19/25 00:00 Urine Blood 3+ (Negative) A 05/19/25 00:00 Urine Nitrate Negative (Negative) 05/19/25 00:00 Urine Bilirubin 1+ (Negative) H 05/19/25 00:00 Urine Urobilinogen 1.0 mg/dL (Negative) 05/19/25 00:00 Ur Leukocyte Esterase 3+ (Negative) A 05/19/25 00:00 Urine RBC 11-20 /hpf (0-2) H 05/19/25 00:00 Urine WBC >100 /hpf (0-5) H 05/19/25 00:00 Ur Squamous Epith Cells 11-20 /hpf (0-5) H 05/19/25 00:00 Amorphous Sediment Not Reportable 05/19/25 00:00 Urine Bacteria 4+ /hpf (NONE) H 05/19/25 00:00 Hyaline Casts 20.18 /lpf 05/19/25 00:00 RPR w/Rflx to Titer Non-reactive (NON-REACTIVE) 05/18/25 22:25 C. trachomatis (PCR) Not detected (Negative) 05/18/25 23:50 Hepatitis A IgM Ab Non-reactive (Nonreactive) 05/19/25 05:19 Hep Bs Antigen Non-reactive (Nonreactive) 05/19/25 05:19 Hep Bs Antibody < 3.5 (11.5-1000) L 05/19/25 05:19 Hep B Core Total Ab Non-reactive (Nonreactive) 05/19/25 05:19 Hepatitis C Antibody Non-reactive (Nonreactive) 05/19/25 05:19 HIV 1&2 Ab & HIV 1 Ag Non-reactive (Non-Reactiv) 05/19/25 05:19 HIV 1&2 Antibody Non-reactive (Non-Reactiv) 05/19/25 05:19 Influenza A (PCR) Negative (Negative) 05/19/25 05:50 Influenza Type B (PCR) Negative (Negative) 05/19/25 05:50 N. gonorrhoeae (PCR) Not detected (Negative) 05/18/25 23:50 RSV (PCR) Negative (Negative) 05/19/25 05:50 SARS-CoV-2 (PCR) Negative (Negative) 05/19/25 05:50 Imaging US OB: Radiologist's impression: US/US OB limited [id number] IMPRESSION: 1. Single live intrauterine gestation. 2. Negative for acute pathology. BIOMETRY: Gestational age (AUA): Estimated gestational age 11 weeks 1 day based on the current biometry; previously estimated 10 weeks 1 day. Hiller rump length (CRL): Fetus crown-rump length 4.31 cm. Vitals Last Vital Signs Temp 98.1 F 05/21/25 07:05 Pulse 79 05/21/25 07:05 Resp 14 05/21/25 07:05 BP 95/65 05/21/25 07:05 Pulse Ox 97 05/21/25 07:05 O2 Del Method Room Air 05/21/25 07:05 Discharge Plan Discharge Patient Disposition: Home Condition: Stable Prescriptions: New cephalexin 500 mg capsule 1,000 mg PO QID 12 Days Qty: 96 0RF Continued diphenhydramine HCl [Benadryl] 25 mg capsule 25 mg PO Q6H PRN (Reason: allergies) epinephrine 0.3 mg/0.3 mL auto-injector 0.3 mg IM Q30M PRN (Reason: unknown) loratadine 10 mg tablet 10 mg PO DAILY ibuprofen 400 mg tablet 400 mg PO TID PRN (Reason: Pain) (DME) cam boot to left See Rx Instructions .Route .MEDSUPPLY Qty: 1 0RF Rx Instructions: As directed (DME) ASO to left See Rx Instructions .Route .MEDSUPPLY Qty: 1 0RF Rx Instructions: As directed famotidine 20 mg Tablet 20 mg PO BID triamcinolone acetonide 0.5 % Cream 1 applic topical BID PRN (Reason: Rash) Qty: 30 0RF clonidine HCl 0.1 mg tablet 0.1 mg PO TID promethazine 25 mg tablet 25 mg PO BID levocetirizine 5 mg tablet 5 mg PO QPM M- Plus 27 mg iron- 1 mg tablet 1 tab PO QPM Invega Trinza 410 mg/1.32 mL syringe 400 mg IM Q90D Ware Finisher OK for DC: Obstetrics/Gynecology and Hospitalist Discharge Order = DC NOW: Discharge Order (Routine); Ordered 05/21/25 Ordered By: Andry Mora Referrals: Edwin Bourgeois MD [Physician, YARD MOTOR OPERATOR] - 1 week Cary Monzon DO [Primary Care Provider, Family Practice] Discharge Diet: Usual diet Discharge Activity: Resume usual activity Patient Instructions: Cephalexin (By mouth), Urinary Tract Infection in (ED), Patient Portal & Brit Instructions Activity Restrictions/Additional Instructions: Take antibiotics as prescribed?this will be sent to your pharmacy Add a probiotic or active culture yogurt to avoid infectious diarrhea Is important to have close follow-up with your OB doctor. Please call tomorrow for follow-up this week regarding your UTI, and ongoing nausea and vomiting. Return to ED if you have ongoing nausea and vomiting. Patient's Health Concerns: Please take all of your antibiotics. Must take antibiotics 4 times a day. If you are late with a dose please alter the time of the rest of your medication. Must be spaced out by at least 5 hours between doses. Recommend setting an alarm. And finish the 12-day course provided Discharge Attestations Time Spent in Discharge Care*: greater than 30 min Quality Metrics Clinical Quality Measures [ No reported AMI, CVA or VTE this stay] Coding Level of Care Code Acute Code for Chg Fwd Diagnoses Pyelonephritis affecting in first trimester O23.01 First trimester bleeding O20.9
[2025-05-21 11:00] VITALS: BP 93/63; PULSE 94; RESP 16; TEMP 36.8; O2SAT 100
[2025-05-21 11:13] VITALS: BP 93/63; PULSE 94; RESP 16; TEMP 36.8; O2SAT 100
== END 2025-05-21 11:15 | disposition home or self-care (01) | DRG 833 ==
LOC: ER 05-19 03:28 → ER IP 05-19 04:54 → MEDSURG 05-19 07:14
PROVIDERS: Emergency Medicine; Admitting Provider Student in an Organized Health Care Education/Training Program; Emergency Provider Physician Assistant; PCP Family Medicine; Visit Provider Internal Medicine
DX: O23.01 Infections of kidney in pregnancy, first trimester (principal); O99.341 Other mental disorders complicating pregnancy, first trimester; B96.20 Unspecified Escherichia coli [E. coli] as the cause of diseases classified elsewhere; Z3A.11 11 weeks gestation of pregnancy; F31.9 Bipolar disorder, unspecified; F90.9 Attention-deficit hyperactivity disorder, unspecified type
CPT/HCPCS: 36415; 76770; 76815; 80048; 80053; 81001; 83605; 85025; 86592; 86705; 86706; 86709; 86803; 87040; 87077; 87086; 87186; 87340; 87491; 87591; 87637; 87806; 93005; 96374; 96375; 99285; J0696; J1200; J2405; J7120; J9999; Q0169

== ENCOUNTER → 2025-05-29 09:39 | Outpatient (BNVA) | payer MEDICAID, SELFPAY | PROVIDERS: PCP Family Medicine; Visit Provider Obstetrics & Gynecology | DX: Z34.90 Encounter for supervision of normal pregnancy, unspecified, unspecified trimester (principal); N91.2 Amenorrhea, unspecified | CPT/HCPCS: 80307; 81025; 84443; 86592; 86762; 86803; 87086; 87340; 87806 ==

== ENCOUNTER → 2025-06-19 16:11 | Outpatient (BNVA) | payer MEDICAID, SELFPAY | PROVIDERS: PCP Family Medicine; Visit Provider Obstetrics & Gynecology | DX: Z34.91 Encounter for supervision of normal pregnancy, unspecified, first trimester (principal) | CPT/HCPCS: 84315 ==

== ENCOUNTER → 2025-07-03 09:47 | Outpatient (BNVA) | payer MEDICAID, SELFPAY | PROVIDERS: PCP Family Medicine; Visit Provider Nurse Practitioner Women's Health | DX: O26.892 Other specified pregnancy related conditions, second trimester (principal); Z3A.17 17 weeks gestation of pregnancy; Z67.91 Unspecified blood type, Rh negative | CPT/HCPCS: 82105; 84315; 87086 ==

== ENCOUNTER 2025-07-23 23:42 | Outpatient (CLI) | payer MEDICAID, SELFPAY ==
[2025-07-23 23:52] VITALS: BMI 27.6
[2025-07-24 00:02] VITALS: BP 115/70; PULSE 102
[2025-07-24 00:03] VITALS: PULSE 111; RESP 16; TEMP 36.1; O2SAT 98
[2025-07-24 00:12] LABS: Glucose Urine UA Negative (Normal); Nitrate Urine Negative (Negative); Specific Gravity, Urine 1.019 (1.005-1.030)
[2025-07-24 00:25] VITALS: RESP 16; TEMP 36.4; O2SAT 99
[2025-07-24 00:26] VITALS: BP 123/88; PULSE 100
[2025-07-24 00:45] VITALS: BP 123/88; PULSE 100; RESP 16; TEMP 36.4; O2SAT 99
== END 2025-07-24 00:46 | disposition home or self-care (01) ==
LOC: OPOB 23:46 → OBGYN 23:47
PROVIDERS: PCP Family Medicine; Visit Provider Obstetrics & Gynecology
DX: O26.899 Other specified pregnancy related conditions, unspecified trimester (principal); Z3A.00 Weeks of gestation of pregnancy not specified; M54.9 Dorsalgia, unspecified; R10.A2 Flank pain, left side
CPT/HCPCS: 81001; 99211

== ENCOUNTER → 2025-08-04 08:01 | Outpatient (BNVA) | payer MEDICAID, SELFPAY | PROVIDERS: PCP Family Medicine; Visit Provider Obstetrics & Gynecology | DX: Z34.92 Encounter for supervision of normal pregnancy, unspecified, second trimester (principal); Z3A.22 22 weeks gestation of pregnancy | CPT/HCPCS: 84315 ==

== ENCOUNTER → 2025-08-18 11:26 | Outpatient (BNVA) | payer MEDICAID, SELFPAY | PROVIDERS: PCP Family Medicine; Visit Provider Nurse Practitioner Women's Health | DX: O23.42 Unspecified infection of urinary tract in pregnancy, second trimester (principal); O26.892 Other specified pregnancy related conditions, second trimester; Z3A.24 24 weeks gestation of pregnancy; Z67.41 Type O blood, Rh negative | CPT/HCPCS: 82950; 84315; 87086 ==